=== PATIENT | male | born 1985 | race Caucasian/White ===

== ENCOUNTER 2017-12-19 12:08 | Emergency (ER) | payer MEDICARE, OTHER ==
[2017-12-19 12:28] VITALS: RESP 18
--- NOTE | 2017-12-19 14:59 | ED ---
General Adult HPI - General Chief complaint: ENT Stated complaint: ear pain Time Seen by Provider: 12/19/17 12:54 Source: patient, RN notes reviewed Mode of arrival: ambulatory Limitations: no limitations - History of Present Illness Initial comments: Patient is a 32-year-old male presented to the emergency room today with a chief complaint decreased hearing. He states that he woke up this morning noticed that he was having difficult time hearing out of seizures. He has not that he had some congestion last week but states he weighs it was just ALLERGIES. He denies any other complaints or symptoms at this time. Patient denies any recent fever, chills, shortness of breath, chest pain, back pain, abdominal pain, nausea or vomiting, numbness or tingling, headaches or visual changes, or any other complaints. - Related Data Home Medications Medication Instructions Recorded Confirmed No Known Home Medications 12/19/17 12/19/17 Allergies Allergy/AdvReac Type Severity Reaction Status Date / Time wool Allergy Rash/Hives Verified 12/19/17 14:10 methylphenidate HCl AdvReac Nausea & Verified 12/19/17 14:10 [From Ritalin] Vomiting olanzapine [From Zyprexa] AdvReac Nausea & Verified 12/19/17 14:10 Vomiting Review of Systems ROS Statement: Those systems with pertinent positive or pertinent negative responses have been documented in the HPI. ROS Other: All systems not noted in ROS Statement are negative. Past Medical History Past Medical History: COPD, Hypertension, Osteoarthritis (OA), Seizure Disorder , Sleep Apnea/CPAP/BIPAP Additional Past Medical History / Comment(s): 03/16/15 Pt presented to [facility] ER from doctor's office where he had presented with episodic chest pain -central and to L side. Pain is sometimes sharp, heavy or a pressure. Pt sent to ER for further evaluation. He is being admitted with clinical impression of chest pain. Other HX: Last seizure 03/12/15, DJD, arthritis in right pelvic bone and R knee, TRACI (unable to tolerate CPAP), insomnia. History of Any Multi-Drug Resistant Organisms: None Reported Past Surgical History: Appendectomy Additional Past Surgical History / Comment(s): 09/2014 Lap appy Past Anesthesia/Blood Transfusion Reactions: No Reported Reaction Past Psychological History: Anxiety, Bipolar, Depression, Panic Disorder, Schizoaffective Disorder, Schizophrenia Smoking Status: Current every day smoker Past Alcohol Use History: None Reported, Occasional Past Drug Use History: Marijuana - Past Family History Father Family Medical History: Hypertension, Myocardial Infarction ([place]) Additional Family Medical History / Comment(s): Pt reports his father of an [place] at the age of 48. Mother History Unknown: Yes Family Medical History: Cancer Additional Family Medical History / Comment(s): Recently diagnosed with breast cancer. General Exam - General Exam Comments Initial Comments: General: The patient is awake and alert, in no distress, and does not appear acutely ill. Eye: Extra-ocular movements are intact. No nystagmus. There is normal conjunctiva bilaterally. No signs of icterus. Ears, nose, mouth and throat: There are moist mucous membranes and no oral lesions. Cerumen impaction bilaterally. Neck: The neck is supple, there is no tenderness or JVD. Musculoskeletal: Normal ROM, no tenderness. Sensation intact. Strength 5/5. Pulses equal bilaterally 2+. Neurological: A&O x 3. CN II-XII intact, There are no obvious motor or sensory deficits. Coordination appears grossly intact. Speech is normal. Skin: Skin is warm and dry and no rashes or lesions are noted. Psychiatric: Cooperative, appropriate mood & affect, normal judgment. Limitations: no limitations Course Vital Signs 12/19/17 12:25 Temperature 98.0 F Pulse Rate 63 Respiratory 18 Rate Blood Pressure 100/75 O2 Sat by Pulse 98 Oximetry Medical Decision Making - Medical Decision Making The patient's ears were irrigated by nursing staff here bilaterally. Patient does not that he's had improvement and can hear both sides clearly now. His ears are clear. Little redness irritation. Patient states feels comfortable being discharged home. Disposition Clinical Impression: Impacted cerumen, bilateral Disposition: HOME SELF-CARE Condition: Good Instructions: Cerumen Impaction (ED) Is patient prescribed a controlled substance at d/c from ED?: No Referrals: Les Alexander MD [Primary Care Provider] - 1-2 days Time of Disposition: 16:22
[2017-12-19 16:32] VITALS: BP 128/87; PULSE 87; TEMP 98.5
== END 2017-12-19 16:31 | disposition home or self-care (01) ==
LOC: EC 12:08
DX: H61.23 Impacted cerumen, bilateral (principal); F17.200 Nicotine dependence, unspecified, uncomplicated; Z88.8 Allergy status to other drugs, medicaments and biological substances; Z91.048 Other nonmedicinal substance allergy status
CPT/HCPCS: 99282

== ENCOUNTER 2018-05-24 20:25 | Emergency (ER) | payer OTHER ==
[2018-05-24] MEDS ORDERED: guaiFENesin-DM 600/30MG 1 EACH TAB.ER.12H PO STA (21:14)
--- NOTE | 2018-05-24 21:42 | XR ---
EXAMINATION TYPE: XR chest 2V DATE OF EXAM: 05/24/2018 COMPARISON: 02/03/2016 HISTORY: Chest pain TECHNIQUE: Frontal and lateral views of the chest are obtained. FINDINGS: Heart and mediastinum are normal. Lungs are clear. Diaphragm is normal. Bony thorax appear s normal. IMPRESSION: Normal chest. No change.
--- NOTE | 2018-05-24 22:04 | ED ---
URI HPI - General Chief Complaint: Upper Respiratory Infection Stated Complaint: Flu/fever Time Seen by Provider: 05/24/18 20:40 Source: patient Mode of arrival: ambulatory Limitations: no limitations - History of Present Illness Initial Comments: 33-year-old female patient presents to emergency department today for evaluation of fever, cough, and nasal congestion. Patient states that he needs clearance to return to work. Patient states he did start feeling better today. Patient states symptoms started 3 days ago. Patient states that he has been coughing. Denies any sputum production. Denies shortness of breath or chest pain with this to take aspirin approximately 3 hours ago for fever. States he has not checked his temperature but has been chilled for the last 3 days. Patient denies any recent rash, abdominal pain, nausea, vomiting, diarrhea, constipation, back pain, numbness, tingling, dizziness, weakness, hematuria, dysuria, urinary urgency, urinary frequency, headache, visual changes, or any other complaints. - Related Data Previous Rx's Medication Instructions Recorded guaiFENesin-DM 600/30MG [Mucinex 1 each PO Q12HR #10 tab.er.12h 05/24/18 Dm] Allergies Allergy/AdvReac Type Severity Reaction Status Date / Time wool Allergy Rash/Hives Verified 05/24/18 20:38 methylphenidate HCl AdvReac Nausea & Verified 05/24/18 20:38 [From Ritalin] Vomiting olanzapine [From Zyprexa] AdvReac Nausea & Verified 05/24/18 20:38 Vomiting Review of Systems ROS Statement: Those systems with pertinent positive or pertinent negative responses have been documented in the HPI. ROS Other: All systems not noted in ROS Statement are negative. Past Medical History Past Medical History: COPD, Hypertension, Osteoarthritis (OA), Seizure Disorder, Sleep Apnea/CPAP/BIPAP Additional Past Medical History / Comment(s): 03/16/[address] [facility] ER from doctor's office where he had presented with episodic chest pain -central and to L side. Pain is sometimes sharp, heavy or a pressure. Pt sent to ER for further evaluation. He is being admitted with clinical impression of chest pain. Other HX: Last seizure 03/12/15, DJD, arthritis in right pelvic bone and R knee, TRACI (unable to tolerate CPAP), insomnia. History of Any Multi-Drug Resistant Organisms: None Reported Past Surgical History: Appendectomy Additional Past Surgical History / Comment(s): 09/2014 Lap appy Past Anesthesia/Blood Transfusion Reactions: No Reported Reaction Past Psychological History: Anxiety, Bipolar, Depression, Panic Disorder, Schizoaffective Disorder, Schizophrenia Smoking Status: Current every day smoker Past Alcohol Use History: None Reported, Occasional Past Drug Use History: Marijuana - Past Family History Father Family Medical History: Hypertension, Myocardial Infarction ([place]) Additional Family Medical History / Comment(s): Pt reports his father of an [place] at the age of 48. Mother History Unknown: Yes Family Medical History: Cancer Additional Family Medical History / Comment(s): Recently diagnosed with breast cancer. General Exam Limitations: no limitations General appearance: alert, in no apparent distress, other (Physical well- developed, well-nourished adult male patient in no acute distress. Vital signs upon presentation are temperature 99.5F, pulse 86, respirations 16, blood pressure 127/87, pulse ox 95% on room air.) Eye exam: Present: normal appearance, PERRL, EOMI. Absent: scleral icterus, conjunctival injection, periorbital swelling ENT exam: Present: mucous membranes moist. Absent: normal exam, normal oropharynx (Pharyngeal erythema, no tonsillar hypertrophy or exudate noted.) Neck exam: Present: normal inspection. Absent: tenderness, meningismus, lymphadenopathy Respiratory exam: Present: rhonchi (Expiratory in the posterior lung dasilva). Absent: normal lung sounds bilaterally, respiratory distress, wheezes, rales, stridor Cardiovascular Exam: Present: regular rate, normal rhythm, normal heart sounds. Absent: systolic murmur, diastolic murmur, rubs, gallop, clicks GI/Abdominal exam: Present: soft, normal bowel sounds. Absent: distended, tenderness, guarding, rebound, rigid Neurological exam: Present: alert, oriented X3, CN II-XII intact Psychiatric exam: Present: normal affect, normal mood Skin exam: Present: warm, dry, intact, normal color. Absent: rash Course Vital Signs 05/24/18 20:34 Temperature 99.5 F Pulse Rate 86 Respiratory 16 Rate Blood Pressure 127/87 O2 Sat by Pulse 95 Oximetry Medical Decision Making - Medical Decision Making 33-year-old male patient presented to the emergency department today for evaluation of upper respiratory symptoms and fever. Physical examination did reveal expiratory rhonchi in the posterior lung dasilva. Patient does admit to smoking. Chest x-ray showed no acute cardio pulmonary process. Patient did test positive for influenza A. He is out of the treatment window for Tamiflu. We did discuss supportive care. Be given a prescription for Mucinex DM. He is instructed to alternate Tylenol Motrin for fever control. Return parameters were discussed in detail. He verbalizes understanding and agrees with this plan. - Lab Data Lab Results 05/24/18 Range/Units 21:20 Influenza Type A RNA Detected H (Not Detectd) Influenza Type B (PCR) Not Detected (Not Detectd) - Radiology Data Radiology results: report reviewed, image reviewed Two-view x-ray of the chest is obtained. Report was reviewed in its entirety. Impression by Dr. Baron shows normal chest with no change. Disposition Clinical Impression: Influenza A Disposition: HOME SELF-CARE Condition: Good Instructions (If sedation given, give patient instructions): Influenza (ED) Additional Instructions: Increase fluids. Take medications as directed. Follow up with her primary care physician for recheck in 1-2 days. Return to the emergency department immediately for any new, worsening, or concerning symptoms. Prescriptions: guaiFENesin-DM 600/30MG [Mucinex Dm] 1 each PO Q12HR #10 tab.er.12h Is patient prescribed a controlled substance at d/c from ED?: No Referrals: Les Alexander MD [Primary Care Provider] - 1-2 days Time of Disposition: 22:04
[2018-05-24 22:14] VITALS: BP 122/72; PULSE 84; RESP 18; TEMP 98.2
== END 2018-05-24 22:14 | disposition home or self-care (01) ==
LOC: EC 20:25
DX: J10.1 Influenza due to other identified influenza virus with other respiratory manifestations (principal); G47.33 Obstructive sleep apnea (adult) (pediatric); F17.200 Nicotine dependence, unspecified, uncomplicated; Z99.89 Dependence on other enabling machines and devices; Z88.8 Allergy status to other drugs, medicaments and biological substances; Z91.09 Other allergy status, other than to drugs and biological substances
CPT/HCPCS: 71046; 87502; 99283

== ENCOUNTER 2018-05-28 14:22 | Emergency (ER) | payer OTHER ==
[2018-05-28 14:36] VITALS: BP 110/72; PULSE 80; RESP 18; TEMP 99.1
--- NOTE | 2018-05-28 15:14 | ED ---
General Adult HPI - General Chief complaint: Recheck/Abnormal Lab/Rx Stated complaint: Poss flu,wants to be cleared for work Time Seen by Provider: 05/28/18 14:38 Source: patient, RN notes reviewed Mode of arrival: ambulatory Limitations: no limitations - History of Present Illness Initial comments: Patient is a pleasant 33-year-old male presenting to the emergency department requesting return to work note. Patient states he was in the hospital 4 days ago and diagnosed with the flu. Patient did have cough and rhinorrhea as well as nausea and vomiting. Patient states symptoms have resolved. Patient is no longer having fevers. Patient states he feels better and does request to go back to work. Patient cannot identify any recent why he should not be allowed to return back to work. - Related Data Previous Rx's Medication Instructions Recorded guaiFENesin-DM 600/30MG [Mucinex 1 each PO Q12HR #10 tab.er.12h 05/24/18 Dm] Allergies Allergy/AdvReac Type Severity Reaction Status Date / Time wool Allergy Rash/Hives Verified 05/28/18 14:36 methylphenidate HCl AdvReac Nausea & Verified 05/28/18 14:36 [From Ritalin] Vomiting olanzapine [From Zyprexa] AdvReac Nausea & Verified 05/28/18 14:36 Vomiting Review of Systems ROS Statement: Those systems with pertinent positive or pertinent negative responses have been documented in the HPI. ROS Other: All systems not noted in ROS Statement are negative. Constitutional: Reports: chills Eyes: Denies: eye pain ENT: Denies: ear pain Respiratory: Reports: cough (Resolved) Cardiovascular: Denies: chest pain Endocrine: Reports: fatigue (Resolved) Gastrointestinal: Denies: abdominal pain Genitourinary: Denies: dysuria Musculoskeletal: Denies: back pain Skin: Denies: rash Neurological: Denies: weakness Past Medical History Past Medical History: COPD, Hypertension, Osteoarthritis (OA), Seizure Disorder, Sleep Apnea/CPAP/BIPAP Additional Past Medical History / Comment(s): 03/16/15 Pt presented to [facility] ER from doctor's office where he had presented with episodic chest pain -central and to L side. Pain is sometimes sharp, heavy or a pressure. Pt sent to ER for further evaluation. He is being admitted with clinical impression of chest pain. Other HX: Last seizure 03/12/15, DJD, arthritis in right pelvic bone and R knee, TRACI (unable to tolerate CPAP), insomnia. History of Any Multi-Drug Resistant Organisms: None Reported Past Surgical History: Appendectomy Additional Past Surgical History / Comment(s): 09/2014 Ajay sotelo Past Anesthesia/Blood Transfusion Reactions: No Reported Reaction Past Psychological History: Anxiety, Bipolar, Depression, Panic Disorder, Schizoaffective Disorder, Schizophrenia Smoking Status: Current every day smoker Past Alcohol Use History: None Reported, Occasional Past Drug Use History: Marijuana - Past Family History Father Family Medical History: Hypertension, Myocardial Infarction ([place]) Additional Family Medical History / Comment(s): Pt reports his father of an [place] at the age of 48. Mother History Unknown: Yes Family Medical History: Cancer Additional Family Medical History / Comment(s): Recently diagnosed with breast cancer. General Exam Limitations: no limitations General appearance: alert, in no apparent distress Head exam: Present: atraumatic Eye exam: Present: normal appearance, PERRL ENT exam: Present: normal oropharynx Neck exam: Present: normal inspection Respiratory exam: Present: normal lung sounds bilaterally Cardiovascular Exam: Present: regular rate, normal rhythm GI/Abdominal exam: Present: soft. Absent: tenderness Extremities exam: Present: normal inspection Neurological exam: Present: alert Psychiatric exam: Present: normal affect, normal mood Skin exam: Present: normal color Course Vital Signs 05/28/18 05/28/18 14:32 14:51 Temperature 99.1 F Pulse Rate 80 Respiratory 18 18 Rate Blood Pressure 110/72 O2 Sat by Pulse 98 Oximetry Disposition Clinical Impression: Influenza Disposition: HOME SELF-CARE Condition: Stable Instructions (If sedation given, give patient instructions): Influenza (ED) Additional Instructions: Please follow-up with primary care physician in the next couple days for recheck. Return for fevers, vomiting, worsening or changing symptoms or other concerns. Is patient prescribed a controlled substance at d/c from ED?: No Referrals: Les Alexander MD [Primary Care Provider] - 1-2 days Time of Disposition: 15:15
== END 2018-05-28 15:26 | disposition home or self-care (01) ==
LOC: EC 14:22
DX: J11.1 Influenza due to unidentified influenza virus with other respiratory manifestations (principal); J44.9 Chronic obstructive pulmonary disease, unspecified; F17.200 Nicotine dependence, unspecified, uncomplicated; Z88.8 Allergy status to other drugs, medicaments and biological substances; Z91.048 Other nonmedicinal substance allergy status
CPT/HCPCS: 99282

== ENCOUNTER 2018-07-28 09:59 | Emergency (ER) | payer MEDICARE ==
[2018-07-28 10:16] VITALS: BP 116/80; PULSE 102; RESP 20; TEMP 98.6
[2018-07-28] MEDS ORDERED: LIDOCAINE VISCOUS 2% 15 ML CUP MUCOUS MEM ONE (10:41)
[2018-07-28] MEDS ORDERED: IBUPROFEN 600 MG TAB PO STA (10:41)
--- NOTE | 2018-07-28 10:47 | ED ---
URI HPI - General Chief Complaint: Upper Respiratory Infection Stated Complaint: sorethroat, fever Time Seen by Provider: 07/28/18 10:24 Source: patient, RN notes reviewed Mode of arrival: ambulatory Limitations: language barrier - History of Present Illness Initial Comments: 33-year-old male presents emergency department she went sore throat. Patient states sore throat started 2 days ago with a fever. Patient states it's painful to swallow states it makes it difficult but can swallow. Patient denies any chest pain shortness breath no cough or chest congestion. Patient denies any recent [id number] medication use. - Related Data Previous Rx's Medication Instructions Recorded Amoxicillin 500 mg PO Q8H #30 capsule 07/28/18 Allergies Allergy/AdvReac Type Severity Reaction Status Date / Time wool Allergy Rash/Hives Verified 07/28/18 10:20 methylphenidate HCl AdvReac Nausea & Verified 07/28/18 10:20 [From Ritalin] Vomiting olanzapine [From Zyprexa] AdvReac Nausea & Verified 07/28/18 10:20 Vomiting Review of Systems ROS Statement: Those systems with pertinent positive or pertinent negative responses have been documented in the HPI. ROS Other: All systems not noted in ROS Statement are negative. Past Medical History Past Medical History: COPD, Hypertension, Osteoarthritis (OA), Seizure Disorder, Sleep Apnea/CPAP/BIPAP Additional Past Medical History / Comment(s): 03/16/15 Pt presented to [facility] ER from doctor's office where he had presented with episodic chest pain -central and to L side. Pain is sometimes sharp, heavy or a pressure. Pt sent to ER for further evaluation. He is being admitted with clinical impression of chest pain. Other HX: Last seizure 03/12/15, DJD, arthritis in right pelvic bone and R knee, TRACI (unable to tolerate CPAP), insomnia. History of Any Multi-Drug Resistant Organisms: None Reported Past Surgical History: Appendectomy Additional Past Surgical History / Comment(s): 09/2014 Ajay appsid Past Anesthesia/Blood Transfusion Reactions: No Reported Reaction Past Psychological History: Anxiety, Bipolar, Depression, Panic Disorder, Schizoaffective Disorder, Schizophrenia Smoking Status: Current every day smoker Past Alcohol Use History: None Reported, Occasional Past Drug Use History: Marijuana - Past Family History Father Family Medical History: Hypertension, Myocardial Infarction ([place]) Additional Family Medical History / Comment(s): Pt reports his father of an [place] at the age of 48. Mother History Unknown: Yes Family Medical History: Cancer Additional Family Medical History / Comment(s): Recently diagnosed with breast cancer. General Exam Limitations: no limitations General appearance: alert, in no apparent distress Head exam: Present: atraumatic, normocephalic, normal inspection Eye exam: Present: normal appearance, PERRL, EOMI. Absent: scleral icterus, conjunctival injection, periorbital swelling ENT exam: Present: mucous membranes moist, TM's normal bilaterally, normal external ear exam. Absent: normal oropharynx (Posterior pharynx erythema, mild swelling of tonsils which is uniform not unilateral) Neck exam: Present: normal inspection, full ROM. Absent: tenderness, meningismus, lymphadenopathy Respiratory exam: Present: normal lung sounds bilaterally. Absent: respiratory distress, wheezes, rales, rhonchi, stridor Cardiovascular Exam: Present: regular rate, normal rhythm, normal heart sounds. Absent: systolic murmur, diastolic murmur, rubs, gallop, clicks Course Vital Signs 07/28/18 10:11 Temperature 98.6 F Pulse Rate 102 H Respiratory 20 Rate Blood Pressure 116/80 O2 Sat by Pulse 96 Oximetry Medical Decision Making - Medical Decision Making 33-year-old male presented for sore throat. Patient has Pharyngitis clinically. Patient has no evidence of tonsillar abscess. Patient will be started on antibiotics. Patient continue Tylenol Motrin return for any worsening symptoms. Disposition Clinical Impression: Strep pharyngitis Disposition: HOME SELF-CARE Condition: Stable Instructions (If sedation given, give patient instructions): Strep Throat (ED) Additional Instructions: Please return to the Emergency Department if symptoms worsen or any other concerns. Prescriptions: Amoxicillin 500 mg PO Q8H #30 capsule Is patient prescribed a controlled substance at d/c from ED?: No Referrals: Les Alexander MD [Primary Care Provider] - 1-2 days Time of Disposition: 10:46
== END 2018-07-28 11:13 | disposition home or self-care (01) ==
LOC: EC 09:59
DX: J02.0 Streptococcal pharyngitis (principal); F17.200 Nicotine dependence, unspecified, uncomplicated; Z88.8 Allergy status to other drugs, medicaments and biological substances; Z91.048 Other nonmedicinal substance allergy status
CPT/HCPCS: 99283

== ENCOUNTER 2018-07-30 15:11 | Emergency (ER) | payer SELFPAY ==
[2018-07-30 15:26] VITALS: TEMP 98.3
--- NOTE | 2018-07-30 15:30 | ED ---
ENT HPI - General Chief complaint: ENT Stated complaint: Sore throat Time Seen by Provider: 07/30/18 15:28 Source: patient, RN notes reviewed Mode of arrival: ambulatory Limitations: no limitations - History of Present Illness Initial comments: 33-year-old male presents emergency department for a work no Patient seen here 2 days ago for strep pharyngitis was started on amoxicillin. Patient states that he is improved at this time. Patient states his fever has resolved. Patient still taking antibiotics as directed no difficulty swallowing no neck pain neck stiffness, cough or chest congestion. - Related Data Previous Rx's Medication Instructions Recorded Amoxicillin 500 mg PO Q8H #30 capsule 07/28/18 Allergies Allergy/AdvReac Type Severity Reaction Status Date / Time wool Allergy Rash/Hives Verified 07/30/18 15:26 methylphenidate HCl AdvReac Nausea & Verified 07/30/18 15:26 [From Ritalin] Vomiting olanzapine [From Zyprexa] AdvReac Nausea & Verified 07/30/18 15:26 Vomiting Review of Systems ROS Statement: Those systems with pertinent positive or pertinent negative responses have been documented in the HPI. ROS Other: All systems not noted in ROS Statement are negative. Past Medical History Past Medical History: COPD, Hypertension, Osteoarthritis (OA), Seizure Disorder, Sleep Apnea/CPAP/BIPAP Additional Past Medical History / Comment(s): 03/16/15 Pt presented to [facility] ER from doctor's office where he had presented with episodic chest pain -central and to L side. Pain is sometimes sharp, heavy or a pressure. Pt sent to ER for further evaluation. He is being admitted with clinical impression of chest pain. Other HX: Last seizure 03/12/15, DJD, arthritis in right pelvic bone and R knee, TRACI (unable to tolerate CPAP), insomnia. History of Any Multi-Drug Resistant Organisms: None Reported Past Surgical History: Appendectomy Additional Past Surgical History / Comment(s): 09/2014 Lap appy Past Anesthesia/Blood Transfusion Reactions: No Reported Reaction Past Psychological History: Anxiety, Bipolar, Depression, Panic Disorder, Schizoaffective Disorder, Schizophrenia Smoking Status: Current every day smoker Past Alcohol Use History: None Reported, Occasional Past Drug Use History: Marijuana - Past Family History Father Family Medical History: Hypertension, Myocardial Infarction ([place]) Additional Family Medical History / Comment(s): Pt reports his father of an [place] at the age of 48. Mother History Unknown: Yes Family Medical History: Cancer Additional Family Medical History / Comment(s): Recently diagnosed with breast cancer. General Exam Limitations: no limitations General appearance: alert, in no apparent distress Head exam: Present: atraumatic, normocephalic, normal inspection Eye exam: Present: normal appearance, PERRL, EOMI. Absent: scleral icterus, conjunctival injection, periorbital swelling ENT exam: Present: mucous membranes moist, TM's normal bilaterally. Absent: normal oropharynx (Minimal erythema) Neck exam: Present: normal inspection. Absent: tenderness, meningismus, lymphadenopathy Respiratory exam: Present: normal lung sounds bilaterally. Absent: respiratory distress, wheezes, rales, rhonchi, stridor Cardiovascular Exam: Present: regular rate, normal rhythm, normal heart sounds. Absent: systolic murmur, diastolic murmur, rubs, gallop, clicks GI/Abdominal exam: Present: soft, normal bowel sounds. Absent: distended, tenderness, guarding, rebound, rigid Course Vital Signs 07/30/18 15:23 Temperature 98.3 F Pulse Rate 56 L Respiratory 16 Rate Blood Pressure 127/83 O2 Sat by Pulse 100 Oximetry Medical Decision Making - Medical Decision Making Patient was diagnosed with strep pharyngitis 2 days ago ER visit. Patient is improved at this time. Patient was provided work note Disposition Clinical Impression: Hx of streptococcal pharyngitis Disposition: HOME SELF-CARE Condition: Stable Additional Instructions: Please return to the Emergency Department if symptoms worsen or any other concerns. Is patient prescribed a controlled substance at d/c from ED?: No Referrals: Les Alexander MD [Primary Care Provider] - 1-2 days Time of Disposition: 15:30
[2018-07-30 16:18] VITALS: BP 121/70; PULSE 98; RESP 18
== END 2018-07-30 16:17 | disposition home or self-care (01) ==
LOC: EC 15:11
DX: J02.0 Streptococcal pharyngitis (principal); F17.200 Nicotine dependence, unspecified, uncomplicated; Z88.8 Allergy status to other drugs, medicaments and biological substances; Z91.048 Other nonmedicinal substance allergy status
CPT/HCPCS: 99282

== ENCOUNTER 2019-04-20 17:20 | Inpatient (IN) | payer MEDICARE, OTHER ==
[2019-04-20] MEDS ORDERED: ACETAMINOPHEN TAB 325 MG TAB PO STA (18:08)
--- NOTE | 2019-04-20 18:44 | XR ---
EXAMINATION TYPE: XR chest 2V DATE OF EXAM: 04/20/2019 COMPARISON: 05/24/2018 HISTORY: Chest pain TECHNIQUE: Frontal and lateral views of the chest are obtained. FINDINGS: Infrahilar patchy densities noted which may reflect developing infiltrates. Correlate clinically and progress studies may be of value. No evidence for pneumothorax. No pleural effusion. The cardiac silhouette size is within normal limits. The osseous structures are grossly intact. IMPRESSION: 1. Infrahilar patchy densities noted which may reflect developing infiltrates. Correlate clinically and progress studies may be of value.
[2019-04-20] MEDS ORDERED: SODIUM CHLORIDE 0.9% 500 ML 500 ML IV ONE (19:11)
[2019-04-20] MEDS ORDERED: SODIUM CHLORIDE 0.9% 1,000 ML IV ONE (19:11)
[2019-04-20] MEDS ORDERED: VANCOMYCIN IV PER PHARMACY 1 EACH MISC MISCELLANE PRN (19:12)
[2019-04-20] MEDS ORDERED: NALOXONE 0.4 MG/ML 1 ML VIAL IV PRN (19:13)
[2019-04-20] MEDS ORDERED: IBUPROFEN 600 MG TAB PO PRN (19:13)
[2019-04-20] MEDS ORDERED: ACETAMINOPHEN TAB 325 MG TAB PO PRN (19:13)
--- NOTE | 2019-04-20 19:13 | ED ---
URI HPI - General Chief Complaint: Upper Respiratory Infection Stated Complaint: SOB, difficulty swallowing Time Seen by Provider: 04/20/19 18:07 Source: patient Mode of arrival: ambulatory Limitations: no limitations - History of Present Illness Initial Comments: 33-year-old male presenting today for chief complaint of cough fever chills body aches. Patient states the past 2 days he has had cough fever chills sore throat and body aches. Patient states he has been exposed to influenza B. Patient denies any nausea vomiting diarrhea denies any rash. States childhood vaccinations up-to-date. Patient denies any chest pain or shortness of breath. Patient denies any other complaints upon arrival appears nontoxic. Noted to be febrile. - Related Data Home Medications Medication Instructions Recorded Confirmed No Known Home Medications 04/20/19 04/20/19 Allergies Allergy/AdvReac Type Severity Reaction Status Date / Time wool Allergy Rash/Hives Verified 04/20/19 20:03 methylphenidate HCl AdvReac Nausea & Verified 04/20/19 20:03 [From Ritalin] Vomiting olanzapine [From Zyprexa] AdvReac Nausea & Verified 04/20/19 20:03 Vomiting Review of Systems ROS Statement: Those systems with pertinent positive or pertinent negative responses have been documented in the HPI. ROS Other: All systems not noted in ROS Statement are negative. Past Medical History Past Medical History: COPD, Hypertension, Osteoarthritis (OA), Seizure Disorder, Sleep Apnea/CPAP/BIPAP Additional Past Medical History / Comment(s): 03/16/15 Pt presented to [facility] ER from doctor's office where he had presented with episodic chest pain -central and to L side. Pain is sometimes sharp, heavy or a pressure. Pt sent to ER for further evaluation. He is being admitted with clinical impression of chest pain. Other HX: Last seizure 03/12/15, DJD, arthritis in right pelvic bone and R knee, TRACI (unable to tolerate CPAP), insomnia. History of Any Multi-Drug Resistant Organisms: None Reported Past Surgical History: Appendectomy Additional Past Surgical History / Comment(s): 09/2014 Ajay appsid Past Anesthesia/Blood Transfusion Reactions: No Reported Reaction Past Psychological History: Anxiety, Bipolar, Depression, Panic Disorder, Schizoaffective Disorder, Schizophrenia Smoking Status: Current every day smoker Past Alcohol Use History: Occasional Past Drug Use History: None Reported, Marijuana - Past Family History Father Family Medical History: Hypertension, Myocardial Infarction (MT) Additional Family Medical History / Comment(s): Pt reports his father of an MT at the age of 48. Mother History Unknown: Yes Family Medical History: Cancer Additional Family Medical History / Comment(s): Recently diagnosed with breast cancer. General Exam - General Exam Comments Initial Comments: General: The patient is awake and alert, in no distress Eye: +3 mm pupils are equal, round and reactive to light, extra-ocular movements are intact. No nystagmus. There is normal conjunctiva bilaterally. No signs of icterus. No photophobia Ears, nose, mouth and throat: There are moist mucous membranes and no oral lesions. Oropharynx was not erythematous there is no tonsillar enlargement exudates or lesions. Uvula midline. Tympanic membranes are not erythematous or is no effusions bulging or retraction. No tenderness to palpation of the mastoid. No anterior cervical lymphadenopathy. Rhinorrhea, clear and bilateral nares. No tripoding, no drooling. Neck: The neck is supple, there is no tenderness or JVD. No nuchal rigidity Cardiovascular: There is a regular rate and rhythm. No murmur, rub or gallop is appreciated. Respiratory: Respirations are non-labored, breath sounds are equal. No wheezes, stridor, rales. Rhonchi noted. No retractions or abdominal breathing. Gastrointestinal: Soft, non-distended, non-tender abdomen without masses or or ganomegaly noted. There is no rebound or guarding present. Bowel sounds are unremarkable. Musculoskeletal: Normal ROM, no tenderness. Strength 5/5. Sensation intact. Radial pulses equal bilaterally 2+. Neurological: A&O x 3. CN II-XII intact grossly, There are no obvious motor or sensory deficits. Coordination appears grossly intact. Speech appears normal, no muffling. Skin: Skin is warm and dry and no rashes or lesions are noted. No extremity edema Psychiatric: Cooperative Limitations: no limitations Course Vital Signs 04/20/19 04/20/19 04/20/19 17:37 18:39 18:55 Temperature 101.9 F H Pulse Rate 108 H 88 Respiratory 18 20 18 Rate Blood Pressure 130/77 125/66 O2 Sat by Pulse 100 95 Oximetry 02/10/20 02/10/20 02/10/20 19:38 19:47 22:39 Temperature 101.1 F H Pulse Rate 111 H 108 H 91 Respiratory 18 Rate Blood Pressure 123/56 O2 Sat by Pulse 95 Oximetry Medical Decision Making - Medical Decision Making 33-year-old male presenting today for chief complaint of cough and body aches sore throat found to be influenza B-positive. There is bilateral infrahilar infiltrates noted this is concerning given patient's informed testing with possibility of subsequent MRSA pneumonia. Patient was started on Rocephin as well as vancomycin. Lactic acid within normal limits. Patient did have leukocytosis. Patient was given antipyretics in the emergency department as well as IV fluids. Patient is placed on maintenance fluids. Patient states he is doing slightly better after albuterol treatment. Patient had rhonchi on PE. At this time will admit patient for interval CXR and respiratory evaluation. Dr. Ramírez is agreeable recommends this plan he spoke with the admitting provider. Discussed findings and concerns the patient was agreeable to admission - Lab Data Result diagrams: 04/20/19 19:23 04/20/19 19:23 Lab Results 04/20/19 04/20/19 04/20/19 Range/Units 17:40 19:23 19:23 WBC 15.5 H (3.8-10.6) k/uL RBC 5.38 (4.30-5.90) m/uL Hgb 16.1 (13.0-17.5) gm/dL Hct 48.3 (39.0-53.0) % MCV 89.9 (80.0-100.0) fL MCH 30.0 (25.0-35.0) pg MCHC 33.3 (31.0-37.0) g/dL RDW 13.3 (11.5-15.5) % Plt Count 231 (150-450) k/uL Neutrophils % 85 % Lymphocytes % 6 % Monocytes % 5 % Eosinophils % 1 % Basophils % 2 % Neutrophils # 13.2 H (1.3-7.7) k/uL Lymphocytes # 1.0 (1.0-4.8) k/uL Monocytes # 0.8 (0-1.0) k/uL Eosinophils # 0.1 (0-0.7) k/uL Basophils # 0.3 H (0-0.2) k/uL Sodium 131 L (137-145) mmol/L Potassium 4.0 (3.5-5.1) mmol/L Chloride 104 (98-107) mmol/L Carbon Dioxide 20 L (22-30) mmol/L Anion Gap 7 mmol/L BUN 6 L (9-20) mg/dL Creatinine 0.74 (0.66-1.25) mg/dL Est GFR (CKD-EPI)AfAm >90 (>60 ml/min/1.73 sqM) Est GFR (CKD-EPI)NonAf >90 (>60 ml/min/1.73 sqM) Glucose 96 (74-99) mg/dL Plasma Lactic Acid Shahram (0.7-2.0) mmol/L Calcium 8.0 L (8.4-10.2) mg/dL Total Bilirubin 0.7 (0.2-1.3) mg/dL AST 29 (17-59) U/L ALT 11 (4-49) U/L Alkaline Phosphatase 64 (38-126) U/L Total Protein 5.7 L (6.3-8.2) g/dL Albumin 3.1 L (3.5-5.0) g/dL Influenza Type A RNA Not Detected (Not Detectd) Influenza Type B (PCR) Detected H (Not Detectd) 04/20/19 Range/Units 19:23 WBC (3.8-10.6) k/uL RBC (4.30-5.90) m/uL Hgb (13.0-17.5) gm/dL Hct (39.0-53.0) % MCV (80.0-100.0) fL MCH (25.0-35.0) pg MCHC (31.0-37.0) g/dL RDW (11.5-15.5) % Plt Count (150-450) k/uL Neutrophils % % Lymphocytes % % Monocytes % % Eosinophils % % Basophils % % Neutrophils # (1.3-7.7) k/uL Lymphocytes # (1.0-4.8) k/uL Monocytes # (0-1.0) k/uL Eosinophils # (0-0.7) k/uL Basophils # (0-0.2) k/uL Sodium (137-145) mmol/L Potassium (3.5-5.1) mmol/L Chloride (98-107) mmol/L Carbon Dioxide (22-30) mmol/L Anion Gap mmol/L BUN (9-20) mg/dL Creatinine (0.66-1.25) mg/dL Est GFR (CKD-EPI)AfAm (>60 ml/min/1.73 sqM) Est GFR (CKD-EPI)NonAf (>60 ml/min/1.73 sqM) Glucose (74-99) mg/dL Plasma Lactic Acid Shahram 1.1 (0.7-2.0) mmol/L Calcium (8.4-10.2) mg/dL Total Bilirubin (0.2-1.3) mg/dL AST (17-59) U/L ALT (4-49) U/L Alkaline Phosphatase (38-126) U/L Total Protein (6.3-8.2) g/dL Albumin (3.5-5.0) g/dL Influenza Type A RNA (Not Detectd) Influenza Type B (PCR) (Not Detectd) Disposition Clinical Impression: Pneumonia, Influenza B Disposition: ADMITTED IP TO THIS [facility] Condition: Stable Is patient prescribed a controlled substance at d/c from ED?: No Time of Disposition: 19:12 Decision to Admit Reason: Admit from EC Decision Date: 04/20/19 Decision Time: 19:12
[2019-04-20] MEDS ORDERED: OSELTAMIVIR 75 MG CAP PO STA (19:14)
[2019-04-20] MEDS ORDERED: ALBUTEROL NEBULIZED 2.5 MG/3 ML INHALATION STA (19:14)
[2019-04-20] MEDS ORDERED: methylPREDNISolone SOD SUCCI 125 MG/2 ML VIAL IV STA (19:14)
[2019-04-20] MEDS ORDERED: VANCOMYCIN 1,750 MG in SODIUM CHLORIDE 0.9% 500 ML 500 ML IVPB STA (19:17)
[2019-04-20 19:45] LABS: ALT 11 U/L (4-49); AST 29 U/L (17-59); African American GFR (CKD) >90 (>60 ml/min/1.73 sqM); Albumin 3.1 g/dL (3.5-5.0); Alkaline Phosphatase 64 U/L (38-126); Anion Gap 7 mmol/L; Blood Urea Nitrogen 6 mg/dL (9-20); Carbon Dioxide 20 mmol/L (22-30); Chloride 104 mmol/L (98-107); Glucose 96 mg/dL (74-99); Non-African American GFR(CKD) >90 (>60 ml/min/1.73 sqM); Sodium 131 mmol/L (137-145); Total Bilirubin 0.7 mg/dL (0.2-1.3); Total Protein 5.7 g/dL (6.3-8.2)
[2019-04-20 19:50] LABS: Basophils # (A) 0.3 k/uL (0-0.2); Basophils % (A) 2 %; Eosinophils # (A) 0.1 k/uL (0-0.7); Eosinophils % (A) 1 %; HCT 48.3 % (39.0-53.0); HGB 16.1 gm/dL (13.0-17.5); Lymphocytes % (A) 6 %; MCHC 33.3 g/dL (31.0-37.0); MCV 89.9 fL (80.0-100.0); Mean Platelet Volume 8.1; Monocytes # (A) 0.8 k/uL (0-1.0); Monocytes % (A) 5 %; Neutrophils # (A) 13.2 k/uL (1.3-7.7); Neutrophils % (A) 85 %; Platelet Count 231 k/uL (150-450); RBC 5.38 m/uL (4.30-5.90); RDW 13.3 % (11.5-15.5); WBC 15.5 k/uL (3.8-10.6)
[2019-04-20] MEDS: SODIUM CHLORIDE 0.9% 1,000 ML IV SCH (21:12)
[2019-04-21] MEDS: SODIUM CHLORIDE 0.9% 1,000 ML IV SCH ×3 (01:02→21:52)
[2019-04-21] MEDS: VANCOMYCIN 1,500 MG in SODIUM CHLORIDE 0.9% 250 ML IVPB SCH ×3 (06:18→22:00)
[2019-04-21] MEDS: OSELTAMIVIR 75 MG CAP PO SCH ×2 (08:25→20:30)
[2019-04-21] MEDS: IPRATROPIUM-ALBUTEROL 3 ML NEB INHALATION SCH ×2 (15:21→19:19)
--- NOTE | 2019-04-21 19:44 | HP ---
HISTORY AND PHYSICAL CHIEF COMPLAINT: Fever, cough and chills. HISTORY OF PRESENT ILLNESS: This is the first known admission for this 33-year-old male. He started to develop a URI, cough and congestion and suddenly became acutely dyspneic. He came to the emergency room, where he was identified as having bilateral bronchial pneumonia. He has had no history of any pulmonary disease, asthma, etc. He does smoke. REVIEW OF SYSTEMS: He has had no headaches, neurologic problems, hemoptysis, heart disease, hypertension, palpitations, abdominal pain, nausea, vomiting, hematemesis, melena, hematochezia, jaundice, hepatitis, cirrhosis, hematuria, frequency, urgency, renal failure, diabetes, etc. Past medical history, family history, and personal and social histories are unremarkable or noncontributory. He is not on any medication. The only surgery he has had is an appendectomy. He is ALLERGIC to ZYPREXA AND RITALIN. He smokes a pack of cigarettes a day. In the emergency room he was positive for flu on his swab. PHYSICAL EXAMINATION: Blood pressure is 141/86 with a pulse of 102, respirations of 34, and he is afebrile. In general he appeared to be well developed, well nourished, in no acute distress. Skin color is normal. Skin is warm and dry. Lymph nodes are not enlarged. Head, ears, eyes, nose, mouth and throat were normal. Neck veins were not distended. Thyroid is not enlarged. Cardiac exam is normal. The chest demonstrated decreased breath sounds on both bases with rales and rhonchi and a productive cough. Abdomen is soft, nontender. Extremities are normal. Neurologically he was intact. ADMITTING DIAGNOSES: 1. Bilateral bronchopneumonia. 2. Influenza. PLAN: 1. Bed rest. 2. IV fluids. 3. Antibiotics. 4. Updrafts. MMODL / IJN: [id number] /
--- NOTE | 2019-04-21 19:54 | PN ---
PROGRESS NOTE CHIEF COMPLAINT: Pneumonitis. HISTORY OF PRESENT ILLNESS: This gentleman is feeling a little bit better. He is a little bit less short of breath. PHYSICAL EXAMINATION: He still has bilateral decreased breath sounds at the bases with rales and rhonchi. He has a loose productive cough. Cardiac exam is normal. Abdomen is soft, nontender. IMPRESSION: Bronchial pneumonia. PLAN: Continue with IV fluids and medications and updrafts. MMODL / IJN: [id number] /
[2019-04-21] MEDS: FLUTICASONE 50MCG/SPRAY NASAL 16GM EA NOSTRIL SCH (20:30)
[2019-04-21] MEDS ORDERED: TETRAHYDROZOLINE 0.05% OPHTH DROPS 15 ML BTL BOTH EYES PRN (22:47)
[2019-04-22] MEDS ORDERED: VANCOMYCIN TROUGH DUE 1 EACH MISC MISCELLANE ONE (05:00)
[2019-04-22] MEDS: VANCOMYCIN 1,500 MG in SODIUM CHLORIDE 0.9% 250 ML IVPB SCH (05:33)
[2019-04-22] MEDS: SODIUM CHLORIDE 0.9% 1,000 ML IV SCH (05:34)
[2019-04-22 05:52] LABS: African American GFR (CKD) >90 (>60 ml/min/1.73 sqM); Anion Gap 4 mmol/L; Blood Urea Nitrogen 3 mg/dL (9-20); Calcium 7.5 mg/dL (8.4-10.2); Carbon Dioxide 24 mmol/L (22-30); Chloride 108 mmol/L (98-107); Glucose 90 mg/dL (74-99); Non-African American GFR(CKD) >90 (>60 ml/min/1.73 sqM); Potassium 3.8 mmol/L (3.5-5.1); Sodium 136 mmol/L (137-145)
[2019-04-22 08:22] VITALS: BP 121/73; RESP 16; TEMP 99.7
[2019-04-22] MEDS: FLUTICASONE 50MCG/SPRAY NASAL 16GM EA NOSTRIL SCH (08:25)
[2019-04-22] MEDS: OSELTAMIVIR 75 MG CAP PO SCH (08:25)
[2019-04-22] MEDS: IPRATROPIUM-ALBUTEROL 3 ML NEB INHALATION SCH ×2 (09:07→11:42)
[2019-04-22 11:59] VITALS: PULSE 78
[2019-04-22] MEDS ORDERED: LEVOFLOXACIN 500 MG TAB PO SCH (13:00)
--- NOTE | 2019-04-23 07:24 | DS ---
DISCHARGE SUMMARY CHIEF COMPLAINT: Pneumonitis. HISTORY OF PRESENT ILLNESS AND PHYSICAL EXAM: Details of this man's history and physical can be found in the initial workup. LABORATORY STUDIES: While he was in the hospital he had laboratory studies, details of which can be found in the laboratory section of his chart. COURSE IN HOSPITAL: After admission, he was placed on bedrest, started on intravenous fluids and he was started on IV antibiotics, updrafts and chest improved nicely. He was still somewhat congested, but was anxious to be discharged on the and it was felt that he could be sent home on Levaquin 500 mg once a day and Medrol Dosepak and to be seen in the office in a few days. FINAL DIAGNOSIS: Bilateral bronchopneumonia. OPERATIONS: None. CONSULTATIONS: None. He is improved. MMODL / DIANELYSN: [id number] /
[2019-04-23] MEDS ORDERED: methylPREDNISolone 4 MG TAB TAPER PO SCH (09:00)
== END 2019-04-22 13:24 | disposition home or self-care (01) | DRG 195 ==
LOC: EC 17:20 → 4SSUR 20:17 → OBSVTOIN 04-22 09:15
PROVIDERS: ADMIT Family Medicine; ATTEND Family Medicine
DX: J10.08 Influenza due to other identified influenza virus with other specified pneumonia (principal); F17.210 Nicotine dependence, cigarettes, uncomplicated; F25.9 Schizoaffective disorder, unspecified; F31.9 Bipolar disorder, unspecified; F41.0 Panic disorder [episodic paroxysmal anxiety]; G40.909 Epilepsy, unspecified, not intractable, without status epilepticus; I10 Essential (primary) hypertension; J18.0 Bronchopneumonia, unspecified organism; J44.0 Chronic obstructive pulmonary disease with (acute) lower respiratory infection; R13.10 Dysphagia, unspecified; Z20.828 Contact with and (suspected) exposure to other viral communicable diseases; Z80.3 Family history of malignant neoplasm of breast; Z82.49 Family history of ischemic heart disease and other diseases of the circulatory system; Z90.49 Acquired absence of other specified parts of digestive tract; Z88.8 Allergy status to other drugs, medicaments and biological substances
CPT/HCPCS: 36415; 71046; 80048; 80053; 80202; 83605; 85025; 87040; 87502; 94640; 96361; 96365; 96367; 96375; 99285

== ENCOUNTER 2019-05-20 18:08 | Emergency (ER) | payer MEDICARE ==
[2019-05-20 18:54] VITALS: BP 120/82; PULSE 91; RESP 17; TEMP 98.2
--- NOTE | 2019-05-20 19:48 | XR ---
Right ankle HISTORY: Pain for 2 months 3 views the right ankle There is soft tissue swelling present. Bone mineralization, joint spaces and alignment are maintained . There is no fracture or dislocation. There is a plantar calcaneus spur. IMPRESSION: Soft tissue swelling.
--- NOTE | 2019-05-20 20:25 | ED ---
Extremity Problem HPI - General Chief complaint: Extremity Problem,Nontraumatic Stated complaint: rt ankle pain Time Seen by Provider: 05/20/19 19:23 Source: patient Mode of arrival: ambulatory Limitations: no limitations - History of Present Illness Initial comments: Patient is a 34-year-old male presenting to emergency Department with complaints of right ankle pain that has been intermittent for the past 2 months. He cannot recall any injuries or trauma to that ankle. He has no previous ankle surgeries. He denies any fever, chills. He denies history of gout. He has no other complaints at this time. Upon arrival to the ER, his vital signs are stable. - Related Data Previous Rx's Medication Instructions Recorded Levofloxacin [Levaquin] 500 mg PO Q24H #10 tab 04/22/19 Oseltamivir [Tamiflu] 75 mg PO Q12HR #10 cap 04/22/19 methylPREDNISolone Dose Pack 24 mg PO DAILY #1 tab 04/22/19 [Medrol Dose Pack] Allergies Allergy/AdvReac Type Severity Reaction Status Date / Time wool Allergy Rash/Hives Verified 04/20/19 20:03 methylphenidate HCl AdvReac Nausea & Verified 04/20/19 20:03 [From Ritalin] Vomiting olanzapine [From Zyprexa] AdvReac Nausea & Verified 04/20/19 20:03 Vomiting Review of Systems ROS Statement: Those systems with pertinent positive or pertinent negative responses have been documented in the HPI. ROS Other: All systems not noted in ROS Statement are negative. Past Medical History Past Medical History: COPD, Hypertension, Osteoarthritis (OA), Seizure Disorder, Sleep Apnea/CPAP/BIPAP Additional Past Medical History / Comment(s): 03/16/15 Pt presented to [facility] ER from doctor's office where he had presented with episodic chest pain -central and to L side. Pain is sometimes sharp, heavy or a pressure. Pt sent to ER for further evaluation. He is being admitted with clinical impression of chest pain. Other HX: Last seizure 03/12/15, DJD, arthritis in right pelvic bone and R knee, TRACI (unable to tolerate CPAP), insomnia. History of Any Multi-Drug Resistant Organisms: None Reported Past Surgical History: Appendectomy Additional Past Surgical History / Comment(s): 09/2014 Lap appy Past Anesthesia/Blood Transfusion Reactions: No Reported Reaction Past Psychological History: Anxiety, Bipolar, Depression, Panic Disorder, Schizoaffective Disorder, Schizophrenia Smoking Status: Current every day smoker Past Alcohol Use History: Occasional Past Drug Use History: None Reported, Marijuana - Past Family History Father Family Medical History: Hypertension, Myocardial Infarction (CO) Additional Family Medical History / Comment(s): Pt reports his father of an CO at the age of 48. Mother History Unknown: Yes Family Medical History: Cancer Additional Family Medical History / Comment(s): Recently diagnosed with breast cancer. General Exam - General Exam Comments Initial Comments: GENERAL: Well-appearing, well-nourished and in no acute distress. HEAD: Atraumatic, normocephalic. EYES: Pupils equal round and reactive to light, extraocular movements intact, sclera anicteric, conjunctiva are normal. ENT: Moist mucous membranes. NECK: Normal range of motion, supple without lymphadenopathy or JVD. LUNGS: Breath sounds clear to auscultation bilaterally and equal. No wheezes rales or rhonchi. HEART: Regular rate and rhythm without murmurs, rubs or gallops. ABDOMEN: Soft, nontender, normoactive bowel sounds. No guarding, no rebound. No masses appreciated. : Deferred EXTREMITIES: Mild tenderness with palpation underneath the lateral malleolus of the right ankle. Patient has full ankle range of motion. There is no erythema or swelling. No obvious deformity. He is neurovascular intact. No pain in the right foot or right tib-fib area. No clubbing or cyanosis. NEUROLOGICAL: Normal speech, normal gait. PSYCH: Normal mood, normal affect. SKIN: Warm, Dry, normal turgor, no rashes or lesions noted. Limitations: no limitations Course Vital Signs 05/20/19 18:52 Temperature 98.2 F Pulse Rate 91 Respiratory 17 Rate Blood Pressure 120/82 O2 Sat by Pulse 98 Oximetry Medical Decision Making - Medical Decision Making Patient is a 34-year-old male presenting for ankle pain and Timentin for 2 months. No obvious deformities or signs of infection on exam. Vitals are stable. There've been no fevers. X-rays reveal no acute fractures dislocations. I discussed with patient is most likely an ankle sprain. He will continue with ice or heat as well as a brace for support. He states he will follow up with his PCP if symptoms persist. He is stable for discharge. Disposition Clinical Impression: Right ankle sprain Disposition: HOME SELF-CARE Condition: Stable Instructions (If sedation given, give patient instructions): Ankle Sprain (ED) Additional Instructions: Please return to the Emergency Department if symptoms worsen or any other concerns. Continue to use ice or heat to the ankle as well as Tylenol or Advil. Follow-up with PCP if symptoms persist. Is patient prescribed a controlled substance at d/c from ED?: No Referrals: Michael Ruffin MD [Primary Care Provider] - 1-2 days
== END 2019-05-20 20:35 | disposition home or self-care (01) ==
LOC: EC 18:08
DX: S93.401A Sprain of unspecified ligament of right ankle, initial encounter (principal); I10 Essential (primary) hypertension; M19.90 Unspecified osteoarthritis, unspecified site; G47.33 Obstructive sleep apnea (adult) (pediatric); F17.200 Nicotine dependence, unspecified, uncomplicated; Z88.8 Allergy status to other drugs, medicaments and biological substances; Z91.048 Other nonmedicinal substance allergy status; Z99.89 Dependence on other enabling machines and devices; X58.XXXA Exposure to other specified factors, initial encounter
CPT/HCPCS: 99283

== ENCOUNTER 2019-07-06 10:51 | Emergency (ER) | payer MEDICARE ==
--- NOTE | 2019-07-06 11:49 | XR ---
EXAMINATION TYPE: XR ankle complete RT DATE OF EXAM: 07/06/2019 CLINICAL HISTORY: Right ankle pain for weeks with no known injury TECHNIQUE: Frontal, lateral and oblique images of the right ankle are obtained. COMPARISON: 05/20/2019 FINDINGS: There is no acute fracture/dislocation evident in the right ankle. The ankle mortise appe ars within normal limits. Small plantar heel spur is seen. The overlying soft tissue appears unremark able. IMPRESSION: There is no acute fracture or dislocation in the right ankle.
--- NOTE | 2019-07-06 11:51 | XR ---
EXAMINATION TYPE: XR chest 2V DATE OF EXAM: 07/06/2019 COMPARISON: 04/20/2019 HISTORY: Chest pain TECHNIQUE: Frontal and lateral views of the chest are obtained. FINDINGS: There is improved aeration of the lingula in comparison the prior with patchy focus of rig ht basilar airspace disease. Remainder the lungs are well aerated. Bilateral ulises are prominent. Card iomediastinal silhouette is within normal limits. No acute osseous pathology seen. IMPRESSION: 1. Patchy right basilar airspace disease may represent atelectasis given its presence on the prior 12/2019 or recurrent pneumonia. 2. Hilar prominence bilaterally could be on the basis of tortuous vasculature, pulmonary artery hyper tension, or adenopathy.
[2019-07-06 12:26] LABS: Basophils # (A) 0.1 k/uL (0-0.2); Basophils % (A) 1 %; Eosinophils # (A) 0.5 k/uL (0-0.7); Eosinophils % (A) 3 %; HCT 45.2 % (39.0-53.0); HGB 15.1 gm/dL (13.0-17.5); Lymphocytes # (A) 1.9 k/uL (1.0-4.8); Lymphocytes % (A) 12 %; MCH 30.3 pg (25.0-35.0); MCHC 33.4 g/dL (31.0-37.0); MCV 90.7 fL (80.0-100.0); Mean Platelet Volume 7.3; Monocytes # (A) 0.7 k/uL (0-1.0); Monocytes % (A) 4 %; Neutrophils % (A) 80 %; Platelet Count 291 k/uL (150-450); RBC 4.98 m/uL (4.30-5.90); RDW 13.8 % (11.5-15.5); WBC 16.3 k/uL (3.8-10.6)
[2019-07-06 12:29] LABS: ALT 11 U/L (4-49); AST 18 U/L (17-59); African American GFR (CKD) >90 (>60 ml/min/1.73 sqM); Albumin 3.4 g/dL (3.5-5.0); Alkaline Phosphatase 55 U/L (38-126); Anion Gap 7 mmol/L; Blood Urea Nitrogen 17 mg/dL (9-20); Calcium 8.9 mg/dL (8.4-10.2); Carbon Dioxide 22 mmol/L (22-30); Chloride 108 mmol/L (98-107); Glucose 91 mg/dL (74-99); Non-African American GFR(CKD) >90 (>60 ml/min/1.73 sqM); Potassium 4.4 mmol/L (3.5-5.1); Sodium 137 mmol/L (137-145); Total Bilirubin 0.2 mg/dL (0.2-1.3)
[2019-07-06] MEDS ORDERED: AZITHROMYCIN 500 MG TAB PO STA (13:28)
--- NOTE | 2019-07-06 13:52 | ED ---
General Adult HPI - General Chief complaint: Chest Pain Stated complaint: chest pain/Rt ankle pain Time Seen by Provider: 07/06/19 11:06 Source: patient, RN notes reviewed, old records reviewed Mode of arrival: ambulatory Limitations: no limitations - History of Present Illness Initial comments: 34-year-old male patient passed history of retention COPD presents ED for evaluation of pain in his shoulders bilaterally. Patient reports that 3 days ago he was working at his job which requires physical exertion and with upper arm movement he is having some pain in the right upper shoulder. She reports that the next day this also occurred in the left side. Patient reports that he has not had any pain today. He wants to be evaluated for this discomfort he is experiencing prior days. Patient also complains of right ankle pain has been bothering him for the last 2 months. Reports that it hurts with walking. Denies any cough congestion fever shortness of breath. Systemic: Pt denies fatigue, fever/chills, rash. Pt denies weakness, night sweats, weight loss. Neuro: Pt denies headache, visual disturbances, syncope or pre-syncope. HEENT: Pt denies ocular discharge or irritation, otalgia, rhinorrhea, pharyngitis or notable lymphadenopathy. Cardiopulmonary: Pt denies SOB, heart palpitations, dyspnea on exertion. Abdominal/GI: Pt denies abdominal pain, n/v/d. : Pt denies dysuria, burning w/ urination, frequency/urgency. Denies new onset urinary or bowel incontinence. MSK: Pt denies loss of strength or function in extremities. Neuro: Pt denies new onset weakness, paresthesias. - Related Data Previous Rx's Medication Instructions Recorded Levofloxacin [Levaquin] 500 mg PO Q24H #10 tab 04/22/19 Oseltamivir [Tamiflu] 75 mg PO Q12HR #10 cap 04/22/19 methylPREDNISolone Dose Pack 24 mg PO DAILY #1 tab 04/22/19 [Medrol Dose Pack] Azithromycin [Zithromax Z-pack] 0 mg PO DIRECTED #6 tab 07/06/19 Allergies Allergy/AdvReac Type Severity Reaction Status Date / Time wool Allergy Rash/Hives Verified 07/06/19 11:03 methylphenidate HCl AdvReac Nausea & Verified 07/06/19 11:03 [From Ritalin] Vomiting olanzapine [From Zyprexa] AdvReac Nausea & Verified 07/06/19 11:03 Vomiting Review of Systems ROS Statement: Those systems with pertinent positive or pertinent negative responses have been documented in the HPI. ROS Other: All systems not noted in ROS Statement are negative. Past Medical History Past Medical History: COPD, Hypertension, Osteoarthritis (OA), Seizure Disorder, Sleep Apnea/CPAP/BIPAP Additional Past Medical History / Comment(s): Other HX: Last seizure 03/12/15, DJD, arthritis in right pelvic bone and R knee, TRACI (unable to tolerate CPAP), insomnia. History of Any Multi-Drug Resistant Organisms: None Reported Past Surgical History: Appendectomy Additional Past Surgical History / Comment(s): 09/2014 Lap appy Past Anesthesia/Blood Transfusion Reactions: No Reported Reaction Past Psychological History: Anxiety, Bipolar, Depression, Panic Disorder, Schizoaffective Disorder, Schizophrenia Smoking Status: Current every day smoker Past Alcohol Use History: Occasional Past Drug Use History: Marijuana - Past Family History Father Family Medical History: Hypertension, Myocardial Infarction ([place]) Additional Family Medical History / Comment(s): Pt reports his father of an [place] at the age of 48. Mother History Unknown: Yes Family Medical History: Cancer Additional Family Medical History / Comment(s): Recently diagnosed with breast cancer. General Exam - General Exam Comments Initial Comments: Constitutional: NAD, AOX3, Pt has pleasant affect. HEENT: NC/AT, trachea midline, neck supple, no lymphadenopathy. Posterior pharynx non erythematous, without exudates. External ears appear normal, without discharge. Mucous membranes moist. Eyes PERRLA, EOM intact. There is no scleral icterus. No pallor noted. Cardiopulmonary: RRR, no murmurs, rubs or gallops, no JVD noted. Lungs CTAB in anterior and posterior dasilva. No peripheral edema. Abdominal exam: Abdomen soft and non-distended. Abdomen non-tender to palpation in all 4 quadrants. Bowel sounds active in LLQ. No hepatosplenomegaly. No ecchymosis Neuro: CN II-XII grossly intact. No nuchal rigidity. No raccon eyes, no lagos sign, no hemotympanum. No cervical spinal tenderness. MSK: Right lateral malleoli mildly tender to palpation. Full range of motion. No skin changes. No posterior calf tenderness bilaterally, homans sign negative bilaterally. Posterior tibialis and radial pulse +2 bilaterally. Sensation intact in upper and lower extremities. Full active ROM in upper and lower extremities, 5/5 stregnth. Limitations: no limitations Course Vital Signs 07/06/19 07/06/19 11:00 11:24 Temperature 98.2 F Pulse Rate 62 Pulse Rate [ 70 [employer] ] Respiratory 18 Rate Blood Pressure 114/73 O2 Sat by Pulse 98 Oximetry Medical Decision Making - Medical Decision Making 34-year-old male patient passed history of retention COPD presents ED for evaluation of pain in his shoulders bilaterally. Patient reports that 3 days ago he was working at his job which requires physical exertion and with upper arm movement he is having some pain in the right upper shoulder. She reports that the next day this also occurred in the left side. Patient reports that he has not had any pain today. He wants to be evaluated for this discomfort he is experiencing prior days. Patient also complains of right ankle pain has been bothering him for the last 2 months. Reports that it hurts with walking. Denies any cough congestion fever shortness of breath. Patient vital signs are stable, afebrile. Physical exam thin right lateral malleolus be mildly tender to palpation. No respiratory intact no skin changes. EKG is nonischemic. Laboratory investigations revealed a leukocytosis of 16.3. CMP non-impressive. Troponin is negative. Plain film ankle revealed no acute process. Chest x-ray revealed patchy right his liver disease may represent atelectasis or recurrent pneumonia. Hilar prominence bilaterally presents and bases laboratory assessment her pulmonary hypertension or adenopathy. Patient pain atypical appears musculoskeletal in nature. Patient will have close outpatient follow-up for chest x-ray findings with recommended CT of the chest by primary care provider. patient verbalizes verbalize understanding. Pt will be treated with azithromycin for possible pneumonia. Patient about orthopedic consult if ankle continues given pain. Advised to use anti-inflammatories as needed. And to limit weight bearing if it causes him discomfort. Patient to follow up with primary care provider tomorrow and will return to ER if condition worsens in any way. Case discussed with Dr. Ramírez. - Lab Data Result diagrams: 07/06/19 12:12 07/06/19 12:12 Lab Results 07/06/19 07/06/19 07/06/19 Range/Units 12:12 12:12 12:12 WBC 16.3 H (3.8-10.6) k/uL RBC 4.98 (4.30-5.90) m/uL Hgb 15.1 (13.0-17.5) gm/dL Hct 45.2 (39.0-53.0) % MCV 90.7 (80.0-100.0) fL MCH 30.3 (25.0-35.0) pg MCHC 33.4 (31.0-37.0) g/dL RDW 13.8 (11.5-15.5) % Plt Count 291 (150-450) k/uL Neutrophils % 80 % Lymphocytes % 12 % Monocytes % 4 % Eosinophils % 3 % Basophils % 1 % Neutrophils # 13.0 H (1.3-7.7) k/uL Lymphocytes # 1.9 (1.0-4.8) k/uL Monocytes # 0.7 (0-1.0) k/uL Eosinophils # 0.5 (0-0.7) k/uL Basophils # 0.1 (0-0.2) k/uL Sodium 137 (137-145) mmol/L Potassium 4.4 (3.5-5.1) mmol/L Chloride 108 H (98-107) mmol/L Carbon Dioxide 22 (22-30) mmol/L Anion Gap 7 mmol/L BUN 17 (9-20) mg/dL Creatinine 0.76 (0.66-1.25) mg/dL Est GFR (CKD-EPI)AfAm >90 (>60 ml/min/1.73 sqM) Est GFR (CKD-EPI)NonAf >90 (>60 ml/min/1.73 sqM) Glucose 91 (74-99) mg/dL Calcium 8.9 (8.4-10.2) mg/dL Total Bilirubin 0.2 (0.2-1.3) mg/dL AST 18 (17-59) U/L ALT 11 (4-49) U/L Alkaline Phosphatase 55 (38-126) U/L Troponin I <0.012 (0.000-0.034) ng/mL Total Protein 6.0 L (6.3-8.2) g/dL Albumin 3.4 L (3.5-5.0) g/dL Coronavirus (PCR) (Not Detectd) 07/06/19 Range/Units 13:20 WBC (3.8-10.6) k/uL RBC (4.30-5.90) m/uL Hgb (13.0-17.5) gm/dL Hct (39.0-53.0) % MCV (80.0-100.0) fL MCH (25.0-35.0) pg MCHC (31.0-37.0) g/dL RDW (11.5-15.5) % Plt Count (150-450) k/uL Neutrophils % % Lymphocytes % % Monocytes % % Eosinophils % % Basophils % % Neutrophils # (1.3-7.7) k/uL Lymphocytes # (1.0-4.8) k/uL Monocytes # (0-1.0) k/uL Eosinophils # (0-0.7) k/uL Basophils # (0-0.2) k/uL Sodium (137-145) mmol/L Potassium (3.5-5.1) mmol/L Chloride (98-107) mmol/L Carbon Dioxide (22-30) mmol/L Anion Gap mmol/L BUN (9-20) mg/dL Creatinine (0.66-1.25) mg/dL Est GFR (CKD-EPI)AfAm (>60 ml/min/1.73 sqM) Est GFR (CKD-EPI)NonAf (>60 ml/min/1.73 sqM) Glucose (74-99) mg/dL Calcium (8.4-10.2) mg/dL Total Bilirubin (0.2-1.3) mg/dL AST (17-59) U/L ALT (4-49) U/L Alkaline Phosphatase (38-126) U/L Troponin I (0.000-0.034) ng/mL Total Protein (6.3-8.2) g/dL Albumin (3.5-5.0) g/dL Coronavirus (PCR) Not Detected (Not Detectd) - EKG Data -: EKG Interpreted by Me (and Dr. Ramírez) EKG Comments: Ventricular rate 68, painful 154, QRS 84, QT/QTC 364/37. Sinus Arrhythmia. Possible septal infarct age intermittent. No concern for acute ischemia at this time. Disposition Clinical Impression: Musculoskeletal pain, Pneumonia Disposition: HOME SELF-CARE Condition: Stable Instructions (If sedation given, give patient instructions): Musculoskeletal Pain (ED), Arthralgia (ED) Additional Instructions: Follow-up with primary care provider tomorrow. Follow up with orthopedic c onsult if ankle pain persists. Have outpatient CAT scan of chest with contrast. Return immediately to ER if condition worsens in any way. Prescriptions: Azithromycin [Zithromax Z-pack] 0 mg PO DIRECTED #6 tab Is patient prescribed a controlled substance at d/c from ED?: No Referrals: Michael Ruffin MD [Primary Care Provider] - 1-2 days
[2019-07-06 14:31] VITALS: BP 127/65; PULSE 67; RESP 16; TEMP 98.3
== END 2019-07-06 14:31 | disposition home or self-care (01) ==
LOC: EC 10:51
DX: Z03.818 Encounter for observation for suspected exposure to other biological agents ruled out (principal); J18.9 Pneumonia, unspecified organism; M79.18 Myalgia, other site; D72.829 Elevated white blood cell count, unspecified; K76.9 Liver disease, unspecified; J44.9 Chronic obstructive pulmonary disease, unspecified; G47.33 Obstructive sleep apnea (adult) (pediatric); F17.200 Nicotine dependence, unspecified, uncomplicated; Z88.8 Allergy status to other drugs, medicaments and biological substances; Z91.048 Other nonmedicinal substance allergy status
CPT/HCPCS: 36415; 71046; 80053; 84484; 85025; 87635; 93005; 99285

== ENCOUNTER 2019-07-13 13:03 | Emergency (ER) | payer MEDICARE ==
[2019-07-13 13:16] VITALS: BP 111/69; PULSE 70; TEMP 98.9
--- NOTE | 2019-07-13 13:30 | ED ---
General Adult HPI - General Chief complaint: Extremity Injury, Lower Stated complaint: right ankle pain Time Seen by Provider: 07/13/19 13:19 Source: patient, RN notes reviewed Mode of arrival: ambulatory Limitations: no limitations - History of Present Illness Initial comments: 34-year-old male presents to the emergency department for right ankle pain for several months. Patient states it is painful when he walks. He denies fevers or chills. Denies redness or swelling. Patient states he was seen here once before because of this and had negative x-rays. He was told to follow-up with orthopedics but he could not be seen there. He presents again for the same complaint. Denies any changes in this pain. States he has a note to do a more for it. States he tried to call his primary in their scheduling months out. He states he walks bowlegged and this could've something to do with it.Patient has no other complaints at this time including shortness of breath, chest pain, abdominal pain, nausea or vomiting, headache, or visual changes. - Related Data Previous Rx's Medication Instructions Recorded Levofloxacin [Levaquin] 500 mg PO Q24H #10 tab 04/22/19 Oseltamivir [Tamiflu] 75 mg PO Q12HR #10 cap 04/22/19 methylPREDNISolone Dose Pack 24 mg PO DAILY #1 tab 04/22/19 [Medrol Dose Pack] Azithromycin [Zithromax Z-pack] 0 mg PO DIRECTED #6 tab 07/06/19 Allergies Allergy/AdvReac Type Severity Reaction Status Date / Time wool Allergy Rash/Hives Verified 07/06/19 11:03 methylphenidate HCl AdvReac Nausea & Verified 07/06/19 11:03 [From Ritalin] Vomiting olanzapine [From Zyprexa] AdvReac Nausea & Verified 07/06/19 11:03 Vomiting Review of Systems ROS Statement: Those systems with pertinent positive or pertinent negative responses have been documented in the HPI. ROS Other: All systems not noted in ROS Statement are negative. Past Medical History Past Medical History: Hypertension, Osteoarthritis (OA), Seizure Disorder, Sleep Apnea/CPAP/BIPAP Additional Past Medical History / Comment(s): Other HX: Last seizure 03/12/15, DJD, arthritis in right pelvic bone and R knee, TRACI (unable to tolerate CPAP), insomnia. History of Any Multi-Drug Resistant Organisms: None Reported Past Surgical History: Appendectomy Additional Past Surgical History / Comment(s): 09/2014 Lap appy Past Anesthesia/Blood Transfusion Reactions: No Reported Reaction Past Psychological History: Anxiety, Bipolar, Depression, Panic Disorder, Schizoaffective Disorder, Schizophrenia Smoking Status: Current every day smoker Past Alcohol Use History: Occasional Past Drug Use History: None Reported - Past Family History Father Family Medical History: Hypertension, Myocardial Infarction ([place]) Additional Family Medical History / Comment(s): Pt reports his father of an [place] at the age of 48. Mother History Unknown: Yes Family Medical History: Cancer Additional Family Medical History / Comment(s): Recently diagnosed with breast cancer. General Exam Limitations: no limitations General appearance: alert, in no apparent distress Head exam: Present: atraumatic, normocephalic, normal inspection Eye exam: Present: normal appearance, PERRL, EOMI. Absent: scleral icterus, conjunctival injection, periorbital swelling ENT exam: Present: normal exam, mucous membranes moist Neck exam: Present: normal inspection. Absent: tenderness, meningismus, lymphadenopathy Respiratory exam: Present: normal lung sounds bilaterally. Absent: respiratory distress, wheezes, rales, rhonchi, stridor Cardiovascular Exam: Present: regular rate, normal rhythm, normal heart sounds. Absent: systolic murmur, diastolic murmur, rubs, gallop, clicks Extremities exam: Present: full ROM (Full range of motion of the right ankle), normal capillary refill (Capillary refill less than 2 seconds, DP pulse 2+ in the right lower extremity.), other (Sensation intact in the right lower extremity.). Absent: tenderness (Tenderness of the lateral malleolus of the right ankle. Full range of motion of all digits of the right foot. No fifth metatarsal tenderness. No navicular tenderness. No tenderness of the remainder of the right foot. No medial malleoli tenderness of the right ankle.), pedal edema, joint swelling (I do not see any edema erythema or ecchymosis of the right ankle.), calf tenderness Course Vital Signs 07/13/19 13:11 Temperature 98.9 F Pulse Rate 70 Respiratory 18 Rate Blood Pressure 111/69 O2 Sat by Pulse 97 Oximetry Medical Decision Making - Medical Decision Making Patient had an x-ray of the right ankle completed one week ago for this same exact complaint. This showed no acute fracture or dislocation. He denies ever having injured this since the x-ray. I discussed with patient that repeat x-ray will likely not show any new pathology. He is agreeable to this. He is already wearing a brace and taking NSAIDs. I discussed he needs to have follow-up, at this point I am limited with what also can do through the ER. He requested an MRI which I informed him I cannot perform here today. He was given a referral to another orthopedic office as well as to podiatry given that his gait could be causing his ankle pain. He will also follow up with primary care and return for any worsening symptoms. Disposition Clinical Impression: Chronic pain of right ankle Disposition: HOME SELF-CARE Condition: Good Instructions (If sedation given, give patient instructions): Ankle Sprain (ED) Additional Instructions: Please follow up with primary care, orthopedics, and/or podiatry. Take Motrin and Tylenol for pain. Return to the emergency department for any worsening symptoms. Is patient prescribed a controlled substance at d/c from ED?: No Referrals: Michael Ruffin MD [Primary Care Provider] - 1-2 days Carroll Pulido DO [Doctor of Osteopathic Medicine] - 1-2 days Luis M Leon DPM [STAFF PHYSICIAN] - 1-2 days Time of Disposition: 13:29
[2019-07-13 13:51] VITALS: RESP 200
== END 2019-07-13 14:02 | disposition home or self-care (01) ==
LOC: EC 13:03
DX: G89.29 Other chronic pain (principal); M25.571 Pain in right ankle and joints of right foot; F17.200 Nicotine dependence, unspecified, uncomplicated; G47.33 Obstructive sleep apnea (adult) (pediatric); Z99.89 Dependence on other enabling machines and devices; Z87.39 Personal history of other diseases of the musculoskeletal system and connective tissue; Z91.048 Other nonmedicinal substance allergy status; Z88.8 Allergy status to other drugs, medicaments and biological substances
CPT/HCPCS: 99283

== ENCOUNTER 2019-08-08 09:25 | Emergency (ER) | payer OTHER ==
[2019-08-08 09:30] VITALS: BP 135/84; PULSE 87; RESP 18; TEMP 98.2
--- NOTE | 2019-08-08 10:32 | CT ---
EXAMINATION TYPE: CT brain wo con DATE OF EXAM: 08/08/2019 COMPARISON: CT brain November 02, 2010. HISTORY: Headaches, Post traumatic injury few days ago CT DLP: 1099.4 mGycm. Automated Exposure Control for Dose Reduction was Utilized. TECHNIQUE: CT scan of the head is performed without contrast. FINDINGS: There is no acute intracranial hemorrhage, mass effect, or midline shift identified. The ventricles and sulci are within normal limits in size. The globes are intact and the visualized sin uses are clear. The calvarium is intact. Soft tissue density deep right external auditory canal is th ought to reflect cerumen and was present on prior study. IMPRESSION: No acute intracranial hemorrhage, mass effect, or midline shift is seen. No significant change from prior.
--- NOTE | 2019-08-08 11:06 | ED ---
General Adult HPI - General Chief complaint: Head Injury Stated complaint: Head injury few days ago Time Seen by Provider: 08/08/19 09:35 Source: patient, RN notes reviewed, old records reviewed Mode of arrival: ambulatory Limitations: no limitations - History of Present Illness Initial comments: 34-year-old male patient presents ED chief complaint of nausea pain and headache after hitting his head. Patient reports that 4 days ago he states that he hit the left side of his head at work on his left posterior temporal region. Patient reports that since he has had a mild headache and nausea as well. Denies any changes in vision. Denies any other complaints. Systemic: Pt denies fatigue, fever/chills, rash. Pt denies weakness, night sweats, weight loss. Neuro: Pt denies visual disturbances, syncope or pre-syncope. HEENT: Pt denies ocular discharge or irritation, otalgia, rhinorrhea, pharyngitis or notable lymphadenopathy. Cardiopulmonary: Pt denies chest pain, SOB, heart palpitations, dyspnea on exertion. Abdominal/GI: Pt denies abdominal pain, n/v/d. : Pt denies dysuria, burning w/ urination, frequency/urgency. Denies new onset urinary or bowel incontinence. MSK: Pt denies myalgia, loss of strength or function in extremities. Neuro: Pt denies new onset weakness, paresthesias. - Related Data Previous Rx's Medication Instructions Recorded Levofloxacin [Levaquin] 500 mg PO Q24H #10 tab 04/22/19 Oseltamivir [Tamiflu] 75 mg PO Q12HR #10 cap 04/22/19 methylPREDNISolone Dose Pack 24 mg PO DAILY #1 tab 04/22/19 [Medrol Dose Pack] Azithromycin [Zithromax Z-pack] 0 mg PO DIRECTED #6 tab 07/06/19 Allergies Allergy/AdvReac Type Severity Reaction Status Date / Time wool Allergy Rash/Hives Verified 08/08/19 09:30 methylphenidate HCl AdvReac Nausea & Verified 08/08/19 09:30 [From Ritalin] Vomiting olanzapine [From Zyprexa] AdvReac Nausea & Verified 08/08/19 09:30 Vomiting Review of Systems ROS Statement: Those systems with pertinent positive or pertinent negative responses have been documented in the HPI. ROS Other: All systems not noted in ROS Statement are negative. Past Medical History Past Medical History: Hypertension, Osteoarthritis (OA), Seizure Disorder, Sleep Apnea/CPAP/BIPAP Additional Past Medical History / Comment(s): Other HX: Last seizure 03/12/15, DJD, arthritis in right pelvic bone and R knee, TRACI (unable to tolerate CPAP), insomnia. History of Any Multi-Drug Resistant Organisms: None Reported Past Surgical History: Appendectomy Additional Past Surgical History / Comment(s): 09/2014 Lap appy Past Anesthesia/Blood Transfusion Reactions: No Reported Reaction Past Psychological History: Anxiety, Bipolar, Depression, Panic Disorder, Schizoaffective Disorder, Schizophrenia Smoking Status: Current every day smoker Past Alcohol Use History: Rare Past Drug Use History: None Reported - Past Family History Father Family Medical History: Hypertension, Myocardial Infarction ([place]) Additional Family Medical History / Comment(s): Pt reports his father of an [place] at the age of 48. Mother History Unknown: Yes Family Medical History: Cancer Additional Family Medical History / Comment(s): Recently diagnosed with breast cancer. General Exam - General Exam Comments Initial Comments: Constitutional: NAD, AOX3, Pt has pleasant affect. HEENT: NC/AT, trachea midline, neck supple, no lymphadenopathy. Posterior pharynx non erythematous, without exudates. External ears appear normal, without discharge. Mucous membranes moist. Eyes PERRLA, EOM intact. There is no scleral icterus. No pallor noted. Cardiopulmonary: RRR, no murmurs, rubs or gallops, no JVD noted. Lungs CTAB in anterior and posterior dasilva. No peripheral edema. Abdominal exam: Abdomen soft and non-distended. Abdomen non-tender to palpation in all 4 quadrants. Bowel sounds active in LLQ. No hepatosplenomegaly. No ecchymosis Neuro: CN II-XII intact. No nuchal rigidity. No raccon eyes, no lagos sign. No cervical spinal tenderness. NIH 0. Mildly tender region of posterior temporal bone. No skin changes. No tenderness of left sided temporal region. MSK: No posterior calf tenderness bilaterally, homans sign negative bilaterally. Posterior tibialis and radial pulse +2 bilaterally. Sensation intact in upper and lower extremities. Full active ROM in upper and lower extremities, 5/5 stregnth. Limitations: no limitations Course Vital Signs 08/08/19 09:26 Temperature 98.2 F Pulse Rate 87 Respiratory 18 Rate Blood Pressure 135/84 O2 Sat by Pulse 98 Oximetry Medical Decision Making - Medical Decision Making 34-year-old male patient presents ED chief complaint of nausea pain and headache after hitting his head. Patient reports that 4 days ago he states that he hit the left side of his head at work on his left posterior temporal region. Patient reports that since he has had a mild headache and nausea as well. Denies any changes in vision. Denies any other complaints. Patient vital signs are stable, afebrile. Physical exam displayed intact neurologic exam, mild tenderness to palpation left posterior temporal region. No skin changes. CT brain without contrast and display any acute intracranial hemorrhage or mass effect or midline shift. Patient is likely experiencing concussive symptoms. Patient reports that the nausea and his headache resolved yesterday. The area of tenderness is where he hit his head. Will be discharged with return precautions and outpatient PCP follow up. Case discussed with Dr. Fuentes. Disposition Clinical Impression: Concussion Disposition: HOME SELF-CARE Condition: Stable Instructions (If sedation given, give patient instructions): Concussion (ED) Additional Instructions: Follow-up with primary care provider tomorrow. Return to ER if condition worsens. Is patient prescribed a controlled substance at d/c from ED?: No Referrals: Michael Ruffin MD [Primary Care Provider] - 1-2 days
== END 2019-08-08 11:41 | disposition home or self-care (01) ==
LOC: EC 09:25
DX: S06.0X9A Concussion with loss of consciousness of unspecified duration, initial encounter (principal); F17.200 Nicotine dependence, unspecified, uncomplicated; Z88.8 Allergy status to other drugs, medicaments and biological substances; Z91.048 Other nonmedicinal substance allergy status; W22.8XXA Striking against or struck by other objects, initial encounter
CPT/HCPCS: 70450; 99284

== ENCOUNTER 2019-11-02 16:14 | Emergency (ER) | payer OTHER ==
[2019-11-02 16:17] VITALS: BP 150/91; PULSE 67; RESP 16; TEMP 98.1
--- NOTE | 2019-11-02 16:54 | ED ---
Extremity Problem HPI - General Chief complaint: Extremity Problem,Nontraumatic Stated complaint: Elbow pain Time Seen by Provider: 11/02/19 16:31 Source: patient Mode of arrival: ambulatory Limitations: no limitations - History of Present Illness Initial comments: patient is a 34-year-old male presenting to emergency Department with complaints of pain in his left elbow there is been increasing over the past few weeks. He denies any injuries or falls. He denies any fever or chills. He denies any previous surgeries to that elbow. He is right-hand dominant. 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 He has no further complaints at this time. - Related Data Previous Rx's Medication Instructions Recorded Levofloxacin [Levaquin] 500 mg PO Q24H #10 tab 04/22/19 Oseltamivir [Tamiflu] 75 mg PO Q12HR #10 cap 04/22/19 methylPREDNISolone Dose Pack 24 mg PO DAILY #1 tab 04/22/19 [Medrol Dose Pack] Azithromycin [Zithromax Z-pack] 0 mg PO DIRECTED #6 tab 07/06/19 Allergies Allergy/AdvReac Type Severity Reaction Status Date / Time wool Allergy Rash/Hives Verified 08/08/19 09:30 methylphenidate HCl AdvReac Nausea & Verified 08/08/19 09:30 [From Ritalin] Vomiting olanzapine [From Zyprexa] AdvReac Nausea & Verified 08/08/19 09:30 Vomiting Review of Systems ROS Statement: Those systems with pertinent positive or pertinent negative responses have been documented in the HPI. ROS Other: All systems not noted in ROS Statement are negative. Past Medical History Past Medical History: Hypertension, Osteoarthritis (OA), Seizure Disorder, Sleep Apnea/CPAP/BIPAP Additional Past Medical History / Comment(s): Other HX: Last seizure 03/12/15, DJ D, arthritis in right pelvic bone and R knee, TRACI (unable to tolerate CPAP), insomnia. History of Any Multi-Drug Resistant Organisms: None Reported Past Surgical History: Appendectomy Additional Past Surgical History / Comment(s): 09/2014 Lap appy Past Anesthesia/Blood Transfusion Reactions: No Reported Reaction Past Psychological History: Anxiety, Bipolar, Depression, Panic Disorder, Schizoaffective Disorder, Schizophrenia Past Alcohol Use History: Rare Past Drug Use History: None Reported - Past Family History Father Family Medical History: Hypertension, Myocardial Infarction (VT) Additional Family Medical History / Comment(s): Pt reports his father of an VT at the age of 48. Mother History Unknown: Yes Family Medical History: Cancer Additional Family Medical History / Comment(s): Recently diagnosed with breast cancer. General Exam - General Exam Comments Initial Comments: GENERAL: Patient is well-developed and well-nourished. Patient is nontoxic and in no acute distress. HEAD: Atraumatic, normocephalic. EYES: Pupils equal round and reactive to light, extraocular movements intact, sclera anicteric, conjunctiva are normal. Eyelids were unremarkable. ENT: TMs normal, nares patent, oropharynx clear without exudates. Moist mucous membranes. NECK: Normal range of motion, supple without lymphadenopathy or JVD. LUNGS: Unlabored respirations. Breath sounds clear to auscultation bilaterally and equal. No wheezes rales or rhonchi. HEART: Regular rate and rhythm without murmurs, rubs or gallops. ABDOMEN: Soft, nontender, normoactive bowel sounds. No guarding, no rebound. No masses appreciated. : Deferred MUSCULOSKELETAL: Patient has pain with palpation over the medial and lateral epicondyles, he does have full range of motion of the left elbow. There is no overlying erythema or signs of infection. There is no swelling or deformity. He is neurovascular intact. Rest of extremities are normal. No pitting or edema. No clubbing or cyanosis. NEUROLOGICAL: Patient is alert and oriented x 3. Motor and sensory are also intact. Normal speech, normal gait. PSYCH: Normal mood, normal affect. SKIN: Warm, Dry, normal turgor, no rashes or lesions noted. Limitations: no limitations Course Vital Signs 11/02/19 16:15 Temperature 98.1 F Pulse Rate 67 Respiratory 16 Rate Blood Pressure 150/91 O2 Sat by Pulse 98 Oximetry Medical Decision Making - Medical Decision Making patient is a 34-year-old male here for left elbow pain has been increasing for the past few weeks. He's had no injuries or falls, no previous injuries. He is not febrile. Patient's exam is consistent with medial and lateral epicondylitis. There is no signs of infection, no swelling. He does have full range of motion. I recommended ice to the areas, gentle massage, ibuprofen or Aleve for discomfort. Limit repetitive motions. If his symptoms persist he needs to follow up with orthopedics. He is stable for discharge. He is in agreement with this plan of care. Disposition Clinical Impression: Lateral epicondylitis, left elbow, Medial epicondylitis, left elbow Disposition: HOME SELF-CARE Condition: Stable Instructions (If sedation given, give patient instructions): Tennis Elbow (ED) Additional Instructions: Please return to the Emergency Department if symptoms worsen or any other concerns. Recommend ice to the area, gentle massage, ibuprofen or Aleve. May also wear band around the arm as discussed. Limit repetitive motions. If symptoms persist follow-up with orthopedics. Is patient prescribed a controlled substance at d/c from ED?: No Referrals: Michael Ruffin MD [Primary Care Provider] - 1-2 days Yaya Tejada DO [Doctor of Osteopathic Medicine] - 1-2 days
== END 2019-11-02 17:05 | disposition home or self-care (01) ==
LOC: EC 16:14
DX: M77.12 Lateral epicondylitis, left elbow (principal); M77.02 Medial epicondylitis, left elbow; G47.33 Obstructive sleep apnea (adult) (pediatric); Z99.89 Dependence on other enabling machines and devices; Z91.09 Other allergy status, other than to drugs and biological substances; Z88.8 Allergy status to other drugs, medicaments and biological substances
CPT/HCPCS: 99283

== ENCOUNTER 2020-06-26 17:35 | Emergency (ER) | payer OTHER ==
[2020-06-26 17:45] VITALS: TEMP 97.9
--- NOTE | 2020-06-26 18:36 | XR ---
EXAMINATION TYPE: XR femur RT DATE OF EXAM: 06/26/2020 COMPARISON: NONE HISTORY: Pain. Fall. TECHNIQUE: 4 views FINDINGS: I see no fracture nor dislocation. Knee joint and hip joint appear intact. There is develop mentally short femoral neck. Hip joint space is fairly normal however. IMPRESSION: No acute abnormality of the right femur.
--- NOTE | 2020-06-26 18:38 | XR ---
EXAMINATION TYPE: XR Hip Complete RT DATE OF EXAM: 06/26/2020 COMPARISON: 09/15/2014 HISTORY: Fall. Hip pain. TECHNIQUE: 2 views FINDINGS: I see no fracture nor dislocation. There is some femoral neck deformity consistent with old hip dysplasia. Hip joint space is normal. Sacroiliac joint is normal. IMPRESSION: There is some femoral neck deformity stable compared to old exam. No acute abnormality.
[2020-06-26] MEDS ORDERED: KETOROLAC 15 MG/ML 1 ML VIAL IM STA (19:06)
--- NOTE | 2020-06-26 19:06 | ED ---
Lower Extremity Injury HPI - General Source: patient Mode of arrival: ambulatory Limitations: no limitations <Carlos Manuel Sims - Last Filed: 06/26/20 19:58> <Graciela Brown - Last Filed: 06/28/20 01:49> - General Chief Complaint: Extremity Injury, Lower Stated Complaint: Hip pain Time Seen by Provider: 06/26/20 18:12 - History of Present Illness Initial Comments: 35-year-old male presents to the emergency department the chief complaint of right hip pain. Patient reports several days ago he suffered a mechanical fall to the right side of his body. Patient believes she twisted his right leg and now he's having pain and right hip. Patient reports is exacerbated with ambulation and weightbearing. Denies any numbness or tingling. Denies any overlying scaly skin changes. Does have history of hip dysplasia. He used to see an orthopedic doctor but not anymore. Patient denies loss of consciousness, head injury or blood thinners. (Carlos Manuel Sims) - Related Data Home Medications Medication Instructions Recorded Confirmed No Known Home Medications 06/26/20 06/26/20 Allergies Allergy/AdvReac Type Severity Reaction Status Date / Time wool Allergy Rash/Hives Verified 06/26/20 19:06 methylphenidate HCl AdvReac Nausea & Verified 06/26/20 19:06 [From Ritalin] Vomiting olanzapine [From Zyprexa] AdvReac Nausea & Verified 06/26/20 19:06 Vomiting Review of Systems ROS Other: All systems not noted in ROS Statement are negative. <Carlos Manuel Sims - Last Filed: 06/26/20 19:58> ROS Other: All systems not noted in ROS Statement are negative. <Graciela Brown - Last Filed: 06/28/20 01:49> ROS Statement: Those systems with pertinent positive or pertinent negative responses have been documented in the HPI. Past Medical History Past Medical History: Hypertension, Osteoarthritis (OA), Seizure Disorder, Sleep Apnea/CPAP/BIPAP Additional Past Medical History / Comment(s): Other HX: Last seizure 03/12/15, DJD, arthritis in right pelvic bone and R knee, TRACI (unable to tolerate CPAP), insomnia. History of Any Multi-Drug Resistant Organisms: None Reported Past Surgical History: Appendectomy Additional Past Surgical History / Comment(s): 09/2014 Ajay appy Past Anesthesia/Blood Transfusion Reactions: No Reported Reaction Past Psychological History: Anxiety, Bipolar, Depression, Panic Disorder, Schizoaffective Disorder, Schizophrenia Smoking Status: Never smoker Past Alcohol Use History: Rare Past Drug Use History: None Reported - Past Family History Father Family Medical History: Hypertension, Myocardial Infarction (VT) Additional Family Medical History / Comment(s): Pt reports his father of an VT at the age of 48. Mother History Unknown: Yes Family Medical History: Cancer Additional Family Medical History / Comment(s): Recently diagnosed with breast cancer. <Carlos Manuel Sims Last Filed: 06/26/20 19:58> General Exam Limitations: no limitations General appearance: alert, in no apparent distress, obese Head exam: Present: atraumatic, normocephalic, normal inspection Eye exam: Present: normal appearance, PERRL, EOMI Pupils: Present: normal accommodation ENT exam: Present: normal exam, normal oropharynx, mucous membranes moist, TM's normal bilaterally, normal external ear exam Neck exam: Present: normal inspection, full ROM. Absent: tenderness Respiratory exam: Present: normal lung sounds bilaterally. Absent: respiratory distress Cardiovascular Exam: Present: regular rate, normal rhythm, normal heart sounds. Absent: systolic murmur Extremities exam: Present: normal inspection, tenderness (. right hip tenderness. ), normal capillary refill, other (Palpable DP and PT bilaterally. Sensation intact in bilateral lower extremities.). Absent: full ROM (limited range of motion with hip flexion), pedal edema, joint swelling, calf tenderness Back exam: Present: normal inspection, full ROM. Absent: tenderness, CVA tenderness (R), CVA tenderness (L) Neurological exam: Present: alert, oriented X3, normal gait Psychiatric exam: Present: normal affect, normal mood Skin exam: Present: warm, dry, intact, normal color <Carlos Manuel Sims Last Filed: 06/26/20 19:58> Course Vital Signs 06/26/20 06/26/20 17:42 19:37 Temperature 97.9 F Pulse Rate 87 67 Respiratory 18 16 Rate Blood Pressure 100/33 135/82 O2 Sat by Pulse 99 97 Oximetry Medical Decision Making <Carlos Manuel Sims Last Filed: 06/26/20 19:58> <Graciela Brown - Last Filed: 06/28/20 01:49> - Medical Decision Making Patient is neurovascularly intact and physical examination. Patient was given Toradol for pain. Advised to continue between Tylenol and Motrin. X-ray of the femur and hip showed no acute findings. There is a femoral neck deformity consistent with old hip dysplasia. Patient advised to follow-up with job training specialist if symptoms continue. Return parameters were thoroughly discussed with patient was understanding and agreeable. Case discussed with (Carlos Manuel Sims) I was available for consultation in the emergency department. The history and physical exam were done by the midlevel provider. I was consulted for this patients care. I reviewed the case with the midlevel provider and based on their presentation of the patient, I agree with the assessment, medical decision making and plan of care as documented. Chart was dictated using [employer] dictation software. Attempts were made to correct any dictation errors however some typographical errors may persist. Patient was seen during a national state of emergency due to the Covid-19 pandemic. (Graciela Brown) Disposition Is patient prescribed a controlled substance at d/c from ED?: No Time of Disposition: 19:06 <Carlos Manuel Sims - Last Filed: 06/26/20 19:58> <Graciela Brown - Last Filed: 06/28/20 01:49> Clinical Impression: Injury of right hip Disposition: HOME SELF-CARE Condition: Stable Instructions (If sedation given, give patient instructions): Hip Sprain (ED) Additional Instructions: follow-up with job training specialist. Return to emergency department if symptoms worse. Referrals: Michael Ruffin MD [Primary Care Provider] - 1-2 days Clint Rebolledo PAC [PHYSICIAN WINDOWS SYSTEMS ENGINEER] - 1-2 days
[2020-06-26 19:39] VITALS: BP 135/82; PULSE 67; RESP 16
== END 2020-06-26 19:41 | disposition home or self-care (01) ==
LOC: EC 17:35
DX: S79.911A Unspecified injury of right hip, initial encounter (principal); I10 Essential (primary) hypertension; G47.33 Obstructive sleep apnea (adult) (pediatric); M19.90 Unspecified osteoarthritis, unspecified site; F41.9 Anxiety disorder, unspecified; F32.9 Major depressive disorder, single episode, unspecified; W19.XXXA Unspecified fall, initial encounter
CPT/HCPCS: 73502; 73552; 99283; 96372; J1885

== ENCOUNTER 2020-10-09 15:36 | Emergency (ER) | payer MEDICARE, OTHER ==
[2020-10-09 15:40] VITALS: BP 130/72; PULSE 110; RESP 16; TEMP 98.2
[2020-10-09] MEDS ORDERED: KETOROLAC 15 MG/ML 1 ML VIAL IM STA (15:51)
--- NOTE | 2020-10-09 16:14 | XR ---
EXAMINATION TYPE: XR ankle complete RT, XR foot complete RT DATE OF EXAM: 10/09/2020 CLINICAL HISTORY: Right ankle and foot pain after slipping injury yesterday TECHNIQUE: Frontal, lateral and oblique images of the right ankle and foot are obtained. COMPARISON: Right ankle radiograph 07/06/2019 FINDINGS: Ankle: No acute fracture or dislocation. Ankle mortise appears congruent. Mild soft tissue swelling a long the dorsum of the ankle. Joint spaces are maintained. Foot: No acute fracture or dislocation. Mild soft tissue swelling along the dorsum of the foot and an kle.. Joint spaces are maintained. Tiny plantar calcaneal spur. IMPRESSION: No acute fracture or dislocation.
--- NOTE | 2020-10-09 16:23 | ED ---
Lower Extremity Injury HPI - General Chief Complaint: Extremity Injury, Lower Stated Complaint: Rt Ankle Injury Time Seen by Provider: 10/09/20 15:44 Source: patient Mode of arrival: wheelchair Limitations: no limitations - History of Present Illness Initial Comments: 35-year-old male presents to emergency Department with a chief complaint of right ankle injury. Patient reports yesterday he slipped on some water and caused an inversion injury to his right ankle. Patient reports most pain is located along the medial malleolus but he also reports some swelling along the foot. Denies any paresthesias or weakness in the foot, however pain is worse with ambulation and weightbearing. Denies any ecchymosis or erythema. Eyes taking medication to alleviate the symptoms. - Related Data Home Medications Medication Instructions Recorded Confirmed No Known Home Medications 06/26/20 06/26/20 Allergies Allergy/AdvReac Type Severity Reaction Status Date / Time wool Allergy Rash/Hives Verified 10/09/20 15:40 methylphenidate HCl AdvReac Nausea & Verified 10/09/20 15:40 [From Ritalin] Vomiting olanzapine [From Zyprexa] AdvReac Nausea & Verified 10/09/20 15:40 Vomiting Review of Systems ROS Statement: Those systems with pertinent positive or pertinent negative responses have been documented in the HPI. ROS Other: All systems not noted in ROS Statement are negative. Past Medical History Past Medical History: Hypertension, Osteoarthritis (OA), Seizure Disorder, Sleep Apnea/CPAP/BIPAP Additional Past Medical History / Comment(s): Other HX: Last seizure 03/12/15, DJD, arthritis in right pelvic bone and R knee, TRACI (unable to tolerate CPAP), insomnia. History of Any Multi-Drug Resistant Organisms: None Reported Past Surgical History: Appendectomy Additional Past Surgical History / Comment(s): 09/2014 Ajay appsid Past Anesthesia/Blood Transfusion Reactions: No Reported Reaction Past Psychological History: Anxiety, Bipolar, Depression, Panic Disorder, Schizoaffective Disorder, Schizophrenia Smoking Status: Current every day smoker Past Alcohol Use History: Rare Past Drug Use History: None Reported - Past Family History Father Family Medical History: Hypertension, Myocardial Infarction (CT) Additional Family Medical History / Comment(s): Pt reports his father of an CT at the age of 48. Mother History Unknown: Yes Family Medical History: Cancer Additional Family Medical History / Comment(s): Recently diagnosed with breast cancer. General Exam Limitations: no limitations General appearance: alert, in no apparent distress, obese Head exam: Present: atraumatic, normocephalic, normal inspection Eye exam: Present: normal appearance, PERRL, EOMI Pupils: Present: normal accommodation ENT exam: Present: normal exam, normal oropharynx, mucous membranes moist Neck exam: Present: normal inspection, full ROM. Absent: tenderness Respiratory exam: Present: normal lung sounds bilaterally. Absent: respiratory distress Cardiovascular Exam: Present: regular rate, normal rhythm, normal heart sounds. Absent: systolic murmur Extremities exam: Present: full ROM, tenderness (Mid foot and medial malleoli tenderness), normal capillary refill, joint swelling (Right ankle), other (Palpable DP and PT bilaterally). Absent: normal inspection (Mild swelling along the ankle), calf tenderness Back exam: Present: normal inspection, full ROM. Absent: tenderness, CVA tenderness (R), CVA tenderness (L), muscle spasm, paraspinal tenderness, vertebral tenderness Neurological exam: Present: alert, oriented X3 Psychiatric exam: Present: normal affect, normal mood Skin exam: Present: warm, dry, intact, normal color Course Vital Signs 10/09/20 15:38 Temperature 98.2 F Pulse Rate 110 H Respiratory 16 Rate Blood Pressure 130/72 O2 Sat by Pulse 97 Oximetry Medical Decision Making - Medical Decision Making 35-year-old male presents to emergency Department with a chief complaint right ankle injury. On evaluation, he is neurovascularly intact. X-ray of the foot and ankle are unremarkable. Patient likely suffered an ankle sprain. Terrance wrap will be applied. Advised to follow-up with the direct marketing specialist. Strict return problems with thoroughly discussed the patient is an ascending agreeable. Case discussed with physician. Disposition Clinical Impression: Ankle sprain Disposition: HOME SELF-CARE Condition: Stable Instructions (If sedation given, give patient instructions): Ankle Sprain (ED) Additional Instructions: Follow-up with direct marketing specialist. Return to emergency department if symptoms worsen. Is patient prescribed a controlled substance at d/c from ED?: No Referrals: Michael Ruffin MD [Primary Care Provider] - 1-2 days Keyon Anderson DO [Doctor of Osteopathic Medicine] - 1-2 days Time of Disposition: 16:23
[2020-10-09] MEDS ORDERED: ACET/COD 300 MG/30 MG STARTER PACK 6 TAB BTL PO STA (16:28)
== END 2020-10-09 16:37 | disposition home or self-care (01) ==
LOC: EC 15:36
DX: S93.401A Sprain of unspecified ligament of right ankle, initial encounter (principal); I10 Essential (primary) hypertension; Z91.048 Other nonmedicinal substance allergy status; Z88.8 Allergy status to other drugs, medicaments and biological substances; F17.200 Nicotine dependence, unspecified, uncomplicated; W01.0XXA Fall on same level from slipping, tripping and stumbling without subsequent striking against object, initial encounter; Y92.410 Unspecified street and highway as the place of occurrence of the external cause
CPT/HCPCS: 99283; 96372; 73610; 73630; J1885

== ENCOUNTER 2020-11-17 17:26 | Emergency (ER) | payer MEDICARE, OTHER ==
[2020-11-17 18:09] VITALS: BP 103/60; PULSE 75; RESP 18; TEMP 98
--- NOTE | 2020-11-17 19:20 | ED ---
ENT HPI - General Chief complaint: ENT Stated complaint: ENT/Lost Voice Time Seen by Provider: 11/17/20 19:12 Source: patient, RN notes reviewed Mode of arrival: ambulatory Limitations: no limitations - History of Present Illness Initial comments: 35-year-old male presented to emergency department with chief complaint of lost voice, sore throat. 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 Patient denies any significant pain appears or chills no difficulty swallowing no other complaints. - Related Data Previous Rx's Medication Instructions Recorded predniSONE 50 mg PO DAILY #5 tab 11/17/20 Allergies Allergy/AdvReac Type Severity Reaction Status Date / Time wool Allergy Rash/Hives Verified 11/17/20 18:09 methylphenidate HCl AdvReac Nausea & Verified 11/17/20 18:09 [From Ritalin] Vomiting olanzapine [From Zyprexa] AdvReac Nausea & Verified 11/17/20 18:09 Vomiting Review of Systems ROS Statement: Those systems with pertinent positive or pertinent negative responses have been documented in the HPI. ROS Other: All systems not noted in ROS Statement are negative. Past Medical History Past Medical History: Hypertension, Osteoarthritis (OA), Seizure Disorder, Sleep Apnea/CPAP/BIPAP Additional Past Medical History / Comment(s): Other HX: Last seizure 03/12/15, DJD, arthritis in right pelvic bone and R knee, TRACI (unable to tolerate CPAP), insomnia. History of Any Multi-Drug Resistant Organisms: None Reported Past Surgical History: Appendectomy Additional Past Surgical History / Comment(s): 09/2014 Lap appsid Past Anesthesia/Blood Transfusion Reactions: No Reported Reaction Past Psychological History: Anxiety, Bipolar, Depression, Panic Disorder, Schizoaffective Disorder, Schizophrenia Smoking Status: Current every day smoker Past Alcohol Use History: Rare Past Drug Use History: None Reported - Past Family History Father Family Medical History: Hypertension, Myocardial Infarction (RI) Additional Family Medical History / Comment(s): Pt reports his father of an RI at the age of 48. Mother History Unknown: Yes Family Medical History: Cancer Additional Family Medical History / Comment(s): Recently diagnosed with breast cancer. General Exam Limitations: no limitations General appearance: alert, in no apparent distress Head exam: Present: atraumatic, normocephalic, normal inspection Eye exam: Present: normal appearance, PERRL, EOMI. Absent: scleral icterus, conjunctival injection, periorbital swelling ENT exam: Present: normal exam, normal oropharynx, mucous membranes moist Neck exam: Present: normal inspection. Absent: tenderness, meningismus, lymphadenopathy Respiratory exam: Present: normal lung sounds bilaterally. Absent: respiratory distress, wheezes, rales, rhonchi, stridor Cardiovascular Exam: Present: regular rate, normal rhythm, normal heart sounds. Absent: systolic murmur, diastolic murmur, rubs, gallop, clicks Course Vital Signs 11/17/20 18:05 Temperature 98 F Pulse Rate 75 Respiratory 18 Rate Blood Pressure 103/60 O2 Sat by Pulse 99 Oximetry Medical Decision Making - Medical Decision Making Patient has acute laryngitis we discharged stable condition. Disposition Clinical Impression: Laryngitis Disposition: HOME SELF-CARE Condition: Stable Instructions (If sedation given, give patient instructions): Laryngitis (ED) Additional Instructions: Please return to the Emergency Department if symptoms worsen or any other concerns. Prescriptions: predniSONE 50 mg PO DAILY #5 tab Is patient prescribed a controlled substance at d/c from ED?: No Referrals: Michael Ruffin MD [Primary Care Provider] - 1-2 days Time of Disposition: 19:20
== END 2020-11-17 19:28 | disposition home or self-care (01) ==
LOC: EC 17:26
DX: J04.0 Acute laryngitis (principal); I10 Essential (primary) hypertension; F17.200 Nicotine dependence, unspecified, uncomplicated; Z88.8 Allergy status to other drugs, medicaments and biological substances; Z91.09 Other allergy status, other than to drugs and biological substances
CPT/HCPCS: 99283

== ENCOUNTER 2020-12-04 16:54 | Emergency (ER) | payer MEDICARE ==
[2020-12-04 17:09] VITALS: TEMP 98.7
[2020-12-04] MEDS ORDERED: predniSONE 50 MG TAB PO STA (19:49)
[2020-12-04] MEDS ORDERED: IPRATROPIUM-ALBUTEROL 3 ML NEB INHALATION STA (19:49)
--- NOTE | 2020-12-04 19:51 | ED ---
General Adult HPI - General Chief complaint: Fever Stated complaint: Fever Time Seen by Provider: 12/04/20 19:33 Source: patient, RN notes reviewed Mode of arrival: ambulatory Limitations: no limitations - History of Present Illness Initial comments: 35-year-old male with a past medical history of hypertension, pneumonia, seizure disorder presents to the emergency room for a chief complaint of not feeling well. Patient states yesterday he started to get sick. States he has had a cough and congestion. Patient states he had a fever of 101 yesterday. Patient states he has had pneumonia in the past and this could be a pneumonia or influenza. Patient states he wanted to stay home but his work is making him get a work note.Patient has no other complaints at this time including shortness of breath, chest pain, abdominal pain, nausea or vomiting, headache, or visual changes. - Related Data Previous Rx's Medication Instructions Recorded predniSONE 50 mg PO DAILY #5 tab 11/17/20 Benzonatate [Tessalon Perles] 200 mg PO Q8H PRN #15 cap 12/04/20 guaiFENesin [Mucinex] 600 mg PO Q12HR PRN #20 tab 12/04/20 Allergies Allergy/AdvReac Type Severity Reaction Status Date / Time wool Allergy Rash/Hives Verified 12/04/20 17:09 methylphenidate HCl AdvReac Nausea & Verified 12/04/20 17:09 [From Ritalin] Vomiting olanzapine [From Zyprexa] AdvReac Nausea & Verified 12/04/20 17:09 Vomiting Review of Systems ROS Statement: Those systems with pertinent positive or pertinent negative responses have been documented in the HPI. ROS Other: All systems not noted in ROS Statement are negative. Past Medical History Past Medical History: Hypertension, Osteoarthritis (OA), Pneumonia, Seizure Disorder, Sleep Apnea/CPAP/BIPAP Additional Past Medical History / Comment(s): Other HX: Last seizure 03/12/15, DJD, arthritis in right pelvic bone and R knee, TRACI (unable to tolerate CPAP), insomnia. History of Any Multi-Drug Resistant Organisms: None Reported Past Surgical History: Appendectomy Additional Past Surgical History / Comment(s): 09/2014 Lap appy Past Anesthesia/Blood Transfusion Reactions: No Reported Reaction Past Psychological History: Anxiety, Bipolar, Depression, Panic Disorder, Schi zoaffective Disorder, Schizophrenia Smoking Status: Current every day smoker Past Alcohol Use History: Rare Past Drug Use History: Marijuana - Past Family History Father Family Medical History: Hypertension, Myocardial Infarction ([place]) Additional Family Medical History / Comment(s): Pt reports his father of an [place] at the age of 48. Mother History Unknown: Yes Family Medical History: Cancer Additional Family Medical History / Comment(s): Recently diagnosed with breast cancer. General Exam Limitations: no limitations General appearance: alert, in no apparent distress Head exam: Present: atraumatic Eye exam: Present: normal appearance, PERRL, EOMI. Absent: scleral icterus, conjunctival injection ENT exam: Present: normal exam, normal oropharynx, mucous membranes moist, normal external ear exam Neck exam: Present: normal inspection, full ROM. Absent: tenderness Respiratory exam: Present: wheezes. Absent: respiratory distress, accessory muscle use Cardiovascular Exam: Present: regular rate, normal rhythm, normal heart sounds GI/Abdominal exam: Present: soft, normal bowel sounds. Absent: distended, tenderness Course Vital Signs 12/04/20 12/04/20 12/04/20 17:07 20:11 20:28 Temperature 98.7 F Pulse Rate 81 81 81 Respiratory 18 Rate Blood Pressure 111/80 O2 Sat by Pulse 97 Oximetry 12/04/20 20:50 Temperature Pulse Rate Respiratory 20 Rate Blood Pressure O2 Sat by Pulse Oximetry Medical Decision Making - Medical Decision Making Vitals are stable. Patient is well-appearing. Negative coronavirus, RSV and flu. Chest x-ray shows a normal chest no change. Patient likely has viral upper thoracic or infection. Patient will be discharged home with symptomatic medicine. Will follow-up with his doctor. Will return for any worsening s ymptoms - Lab Data Lab Results 12/04/20 Range/Units 20:04 Influenza Type A (PCR) Not Detected (Not Detectd) Influenza Type B (PCR) Not Detected (Not Detectd) RSV (PCR) Not Detected (Not Detectd) SARS-CoV-2 (PCR) Not Detected (Not Detectd) Disposition Clinical Impression: Cough Disposition: HOME SELF-CARE Condition: Good Instructions (If sedation given, give patient instructions): Acute Cough (ED) Additional Instructions: Take medications as directed. Follow-up with your doctor in one to 2 days. Return to the emergency room for any worsening symptoms. Prescriptions: guaiFENesin [Mucinex] 600 mg PO Q12HR PRN #20 tab PRN Reason: Congestion Benzonatate [Tessalon Perles] 200 mg PO Q8H PRN #15 cap PRN Reason: Cough Is patient prescribed a controlled substance at d/c from ED?: No Referrals: Michael Ruffin MD [Primary Care Provider] - 1-2 days Time of Disposition: 22:18
--- NOTE | 2020-12-04 20:18 | XR ---
EXAMINATION TYPE: XR chest 2V DATE OF EXAM: 12/04/2020 COMPARISON: 07/06/2019 HISTORY: Cough TECHNIQUE: 2 views FINDINGS: Heart and mediastinum are normal. Lungs are clear of infiltrate. There is no heart failure. There are no hilar masses. Bony thorax is intact IMPRESSION: Normal chest. No change.
[2020-12-04 22:36] VITALS: BP 115/87; PULSE 87; RESP 18
== END 2020-12-04 22:36 | disposition home or self-care (01) ==
LOC: EC 16:54
DX: R05 Cough (principal); R50.9 Fever, unspecified; R09.89 Other specified symptoms and signs involving the circulatory and respiratory systems; F17.200 Nicotine dependence, unspecified, uncomplicated; I10 Essential (primary) hypertension; Z91.09 Other allergy status, other than to drugs and biological substances; Z88.8 Allergy status to other drugs, medicaments and biological substances
CPT/HCPCS: 94640; 87636; 71046; 99283; J7512

== ENCOUNTER 2021-08-03 08:35 | Emergency (ER) | payer MEDICARE ==
[2021-08-03 08:55] VITALS: TEMP 98.2
[2021-08-03 17:10] VITALS: BP 146/77; PULSE 88; RESP 18
[2021-08-03 17:52] LABS: ALT 15 U/L (4-49); AST 21 U/L (17-59); African American GFR (CKD) >90 (>60 ml/min/1.73 sqM); Albumin 4.2 g/dL (3.5-5.0); Alkaline Phosphatase 86 U/L (38-126); Amylase 59 U/L (30-110); Anion Gap 7 mmol/L; Blood Urea Nitrogen 10 mg/dL (9-20); Calcium 9.2 mg/dL (8.4-10.2); Carbon Dioxide 29 mmol/L (22-30); Chloride 103 mmol/L (98-107); GGT 16 U/L (15-73); Glucose 82 mg/dL (74-99); Lipase 66 U/L (23-300); Magnesium 1.9 mg/dL (1.6-2.3); Non-African American GFR(CKD) >90 (>60 ml/min/1.73 sqM); Potassium 4.8 mmol/L (3.5-5.1); Sodium 139 mmol/L (137-145); Total Bilirubin 0.3 mg/dL (0.2-1.3); Total Protein 6.9 g/dL (6.3-8.2)
[2021-08-03 17:56] LABS: Basophils # (A) 0.1 k/uL (0-0.2); Basophils % (A) 1 %; Eosinophils # (A) 0.4 k/uL (0-0.7); Eosinophils % (A) 4 %; HCT 46.6 % (39.0-53.0); HGB 15.5 gm/dL (13.0-17.5); Lymphocytes # (A) 2.5 k/uL (1.0-4.8); Lymphocytes % (A) 23 %; MCH 30.7 pg (25.0-35.0); MCHC 33.3 g/dL (31.0-37.0); MCV 92.2 fL (80.0-100.0); Mean Platelet Volume 7.7; Monocytes # (A) 0.5 k/uL (0-1.0); Monocytes % (A) 5 %; Neutrophils # (A) 7.5 k/uL (1.3-7.7); Neutrophils % (A) 67 %; Platelet Count 363 k/uL (150-450); RBC 5.05 m/uL (4.30-5.90); RDW 13.6 % (11.5-15.5); WBC 11.1 k/uL (3.8-10.6)
[2021-08-03 17:59] LABS: INR 0.9 (<1.2); Partial Thromboplastin Time 27.9 sec (22.0-30.0); Prothrombin Time 10.4 sec (9.0-12.0)
--- NOTE | 2021-08-03 18:05 | US ---
EXAMINATION TYPE: US kidneys/renal and bladder DATE OF EXAM: 08/03/21 COMPARISON: CT CLINICAL HISTORY: Left flank pain. Hx appendectomy. EXAM MEASUREMENTS: Right Kidney: 12.0 x 5.4 x 4.9 cm. Left Kidney: 11.4 x 5.3 x 5.8 Right Kidney: No hydronephrosis or masses seen. Measures upper limits of normal. Left Kidney: No hydronephrosis or masses seen. Slightly limited due to gas. Bladder: Appears anechoic Bilateral Jets seen: yes IMPRESSION: 1. Unremarkable renal ultrasound.
[2021-08-03 18:29] LABS: Appearance,Urine Clear (Clear); Bilirubin,Urine Negative (Negative); Blood,Urine Negative (Negative); Color,Urine Yellow; Glucose,Urine (UA) Negative (Negative); Ketones,Urine Negative (Negative); Leukocyte Esterase,Urine Small (Negative); Mucus,Urine Rare /hpf; Nitrite,Urine Negative (Negative); Protein,Urine Negative (Negative); RBC,Urine <1 /hpf (0-5); Specific Gravity,Urine 1.009 (1.001-1.035); Squamous Epithelial Cell,Urine <1 /hpf (0-4); Urobilinogen,Urine <2.0 mg/dL (<2.0); WBC,Urine 4 /hpf (0-5)
== END 2021-08-03 17:08 | disposition home or self-care (01) ==
LOC: EC 08:35
DX: R10.32 Left lower quadrant pain (principal); Z88.8 Allergy status to other drugs, medicaments and biological substances; Z91.09 Other allergy status, other than to drugs and biological substances; F17.200 Nicotine dependence, unspecified, uncomplicated
CPT/HCPCS: 36415; 76770; 80053; 81001; 82150; 82977; 83690; 83735; 85025; 85610; 85730; 99284

== ENCOUNTER 2021-08-17 16:16 | Emergency (ER) | payer MEDICARE ==
[2021-08-17 17:10] VITALS: BP 143/96; PULSE 80; RESP 16; TEMP 98.2
--- NOTE | 2021-08-17 19:32 | ED ---
URI HPI - General Chief Complaint: Upper Respiratory Infection Stated Complaint: fever, tired Time Seen by Provider: 08/17/21 19:31 Source: patient, RN notes reviewed Mode of arrival: ambulatory Limitations: no limitations - History of Present Illness Initial Comments: Patient presents with 3 days of nasal congestion, mild cough, runny nose. Patient requesting COVID-19 testing. Patient denies any chest pain or shortness of breath. No nausea or vomiting. No chills. Did have a low-grade fever 2 days ago. Patient has no significant past medical history. Nonsmoker. No headache, no changes in vision or hearing, no sore throat or difficulty with speech, no neck pain, no chest pain or shortness of breath, no abdominal pain, no nausea or vomiting, no changes in urination or bowel movements, no numbness or tingling, no extremity pain, no skin rashes or lesions. MD Complaint: cough, rhinorrhea, nasal congestion - Related Data Home Medications Medication Instructions Recorded Confirmed No Known Home Medications 08/03/21 08/03/21 Allergies Allergy/AdvReac Type Severity Reaction Status Date / Time quetiapine [From Seroquel] Allergy Unknown Verified 08/17/21 17:10 wool Allergy Rash/Hives Verified 08/17/21 17:10 methylphenidate HCl AdvReac Nausea & Verified 08/17/21 17:10 [From Ritalin] Vomiting olanzapine [From Zyprexa] AdvReac Nausea & Verified 08/17/21 17:10 Vomiting Review of Systems ROS Statement: Those systems with pertinent positive or pertinent negative responses have been documented in the HPI. ROS Other: All systems not noted in ROS Statement are negative. Past Medical History Past Medical History: Hypertension, Osteoarthritis (OA), Pneumonia, Seizure Disorder, Sleep Apnea/CPAP/BIPAP Additional Past Medical History / Comment(s): Other HX: Last seizure 03/12/15, DJD, arthritis in right pelvic bone and R knee, TRACI (unable to tolerate CPAP), insomnia. History of Any Multi-Drug Resistant Organisms: None Reported Past Surgical History: Appendectomy Additional Past Surgical History / Comment(s): 09/2014 Lap appy Past Anesthesia/Blood Transfusion Reactions: No Reported Reaction Past Psychological History: Anxiety, Bipolar, Depression, Panic Disorder, Schizoaffective Disorder, Schizophrenia Smoking Status: Current every day smoker Past Alcohol Use History: Rare Past Drug Use History: Marijuana - Past Family History Father Family Medical History: Hypertension, Myocardial Infarction ([place]) Additional Family Medical History / Comment(s): Pt reports his father of an [place] at the age of 48. Mother History Unknown: Yes Family Medical History: Cancer Additional Family Medical History / Comment(s): Recently diagnosed with breast cancer. General Exam - General Exam Comments Initial Comments: Nontoxic-appearing 36-year-old male in no acute distress. Limitations: no limitations General appearance: alert, in no apparent distress Head exam: Present: atraumatic, normocephalic, normal inspection Eye exam: Present: normal appearance, PERRL, EOMI. Absent: scleral icterus, conjunctival injection, periorbital swelling ENT exam: Present: normal exam, normal oropharynx, mucous membranes dry, mucous membranes moist, TM's normal bilaterally. Absent: normal external ear exam Neck exam: Present: normal inspection, full ROM. Absent: tenderness, meningismus, lymphadenopathy Respiratory exam: Present: normal lung sounds bilaterally. Absent: respiratory distress, wheezes, rales, rhonchi, stridor Cardiovascular Exam: Present: regular rate, normal rhythm, normal heart sounds. Absent: systolic murmur, diastolic murmur, rubs, gallop, clicks GI/Abdominal exam: Present: soft, normal bowel sounds. Absent: distended, tenderness, guarding, rebound, rigid Extremities exam: Present: normal inspection, full ROM, normal capillary refill. Absent: tenderness, pedal edema, joint swelling, calf tenderness Back exam: Present: normal inspection Neurological exam: Present: alert, oriented X3, CN II-XII intact Psychiatric exam: Present: normal affect, normal mood Skin exam: Present: warm, dry, intact, normal color. Absent: rash Course Vital Signs 08/17/21 17:08 Temperature 98.2 F Pulse Rate 80 Respiratory 16 Rate Blood Pressure 143/96 O2 Sat by Pulse 98 Oximetry Medical Decision Making - Medical Decision Making requesting COVID-19 testing only. Patient denying any other significant symptomology other than a stuffy nose. No fever or chills. No significant past medical history. Discussed conservative therapy for COVID-19 in detail with the patient. Patient voiced understanding. Patient in no distress. We'll treat conservatively with gthv-vrl-oizwaww medication, work restrictions, quarantine measures. Patient was told to return to the ER for any signs or symptoms worsen. Told to return immediately if any other problems arise. All questions answered. Treatment plan discussed. Patient in agreement Every effort has been made to ensure accuracy of this dictation. However, due to the limitations of electronic medical records and dictation devices, errors in charting still occur. Glass Polisher, Dr. Medina - Lab Data Lab Results 08/17/21 08/17/21 Range/Units 17:12 17:12 Coronavirus (PCR) Detected A (Not Detectd) Influenza Type A RNA Not Detected (Not Detectd) Influenza Type B (PCR) Not Detected (Not Detectd) Disposition Clinical Impression: COVID-19 Disposition: HOME SELF-CARE Condition: Good Instructions (If sedation given, give patient instructions): COVID-19 (Coronavirus Disease 2019) (ED) Additional Instructions: SELF QUARANTINE DISCHARGE: As you are at risk for symptoms due to coronavirus, please stay home and stay away from others as much as possible. Please maintain social distance of 6 feet if possible. You should not return to work until at least 3 days (72 hours) have passed since recovery of symptoms. This defined as resolution of fever without the use of fever reducing medicines and improvement in respiratory symptoms (e.g,, cough, shortness of breath) Isolation can end at least 5 days after symptom onset and after fever ends for 24 hours (without the use of fever-reducing medication) and symptoms are improving, if these people can continue to properly wear a well-fitted mask around others for 5 more days after the 5-day isolation period. If you're still having symptoms at the end of 5 day period, isolate for an additional 5 days. More information about what to do if you are sick can be found on the CDC website at https://www.cdc.gov/coronavirus/2019-ncov/is-tkv-yfe-sick/ihpgg-nwqq-mwic.html Expect the symptoms to last for 7-14 days from onset. Use acetaminophen (Tylenol) as needed for discomfort. You can take a maximum of 1 gram every 6 hours for discomfort, with your total dose in 24 hours not exceeding 4 grams. Be sure to maintain hydration. Drink continuous water and/or items high in vitamin C, such as orange juice and/or lemonade. Unless you have high blood pressure, you may consider Sudafed (which is over-t he-counter) for nasal congestion. I would suggest that a short acting Sudafed rather than the 24 hour Sudafed. For a cough you may take Mucinex or Robitussin. Also consider the use of Vicks Vapor Rub or your chest when you sleep. Use a humidifier that is cleaned frequently, in the bedroom at night. For Nausea /Vomiting/Diarrhea associated with your Illness: o Small frequent sips of room temperature liquids. o Diet: [employer] - If you are still experiencing discomfort and/or nausea please slowly advancing your diet using the BRAT Diet = bananas, rice, apples/apple sauce, toast. o With diarrhea avoid any dairy for 48 hours after symptoms resolved. o Continue with activity as tolerated. If your symptoms do get worse and you believe that the upper respiratory in fection has developed into something else, such as pneumonia or severe dehydration, please return to the emergency department or follow-up with your primary care. But expect to be symptomatic for the days as indicated above Is patient prescribed a controlled substance at d/c from ED?: No Referrals: Michael Ruffin MD [Primary Care Provider] - 08/24/21 Time of Disposition: 19:31
== END 2021-08-17 19:39 | disposition home or self-care (01) ==
LOC: EC 16:16
DX: U07.1 COVID-19 (principal); F17.200 Nicotine dependence, unspecified, uncomplicated; I10 Essential (primary) hypertension; Z88.8 Allergy status to other drugs, medicaments and biological substances; Z91.09 Other allergy status, other than to drugs and biological substances
CPT/HCPCS: 87502; 87635; 99283

== ENCOUNTER 2021-09-12 15:45 | Emergency (ER) | payer MEDICARE, OTHER ==
[2021-09-12 16:07] VITALS: RESP 18; TEMP 97.6
[2021-09-12] MEDS ORDERED: HYDROcodone/APAP 5-325MG 1 EACH TAB PO STA (16:09)
--- NOTE | 2021-09-12 16:42 | XR ---
EXAMINATION TYPE: XR knee limited LT DATE OF EXAM: 09/12/2021 COMPARISON: NONE HISTORY: Pain TECHNIQUE: 2 views FINDINGS: There is no sign of fracture nor dislocation. Joint spaces are normal. No sign of knee join t effusion. There are no pathologic calcifications. IMPRESSION: Negative left knee exam. No fracture.
--- NOTE | 2021-09-12 16:43 | XR ---
EXAMINATION TYPE: XR ankle complete LT DATE OF EXAM: 09/12/2021 COMPARISON: NONE HISTORY: Ankle pain TECHNIQUE: 3 views FINDINGS: I see no fracture nor dislocation. Joint spaces are normal. There is minimal calcaneal spur ring. IMPRESSION: Negative left ankle exam. No fracture.
--- NOTE | 2021-09-12 17:17 | ED ---
Lower Extremity Injury HPI - General Chief Complaint: Extremity Injury, Lower Stated Complaint: fall, ankle injury Time Seen by Provider: 09/12/21 16:08 Source: patient Mode of arrival: ambulatory Limitations: no limitations - History of Present Illness Initial Comments: Patient took a fall down a couple of steps and injured his left leg. He did not hit his head. He did not lose conscious. He has no neck injury. He has no belly or back pain. He has no chest pain. He has no swelling in the legs. He has no paresthesias. He has no weakness. - Related Data Home Medications Medication Instructions Recorded Confirmed No Known Home Medications 08/03/21 08/03/21 Allergies Allergy/AdvReac Type Severity Reaction Status Date / Time quetiapine [From Seroquel] Allergy Unknown Verified 09/12/21 16:07 wool Allergy Rash/Hives Verified 09/12/21 16:07 methylphenidate HCl AdvReac Nausea & Verified 09/12/21 16:07 [From Ritalin] Vomiting olanzapine [From Zyprexa] AdvReac Nausea & Verified 09/12/21 16:07 Vomiting Review of Systems ROS Statement: Those systems with pertinent positive or pertinent negative responses have been documented in the HPI. ROS Other: All systems not noted in ROS Statement are negative. Past Medical History Past Medical History: Hypertension, Osteoarthritis (OA), Pneumonia, Seizure Disorder, Sleep Apnea/CPAP/BIPAP Additional Past Medical History / Comment(s): Other HX: Last seizure 03/12/15, DJD, arthritis in right pelvic bone and R knee, TRACI (unable to tolerate CPAP), insomnia. History of Any Multi-Drug Resistant Organisms: None Reported Past Surgical History: Appendectomy Additional Past Surgical History / Comment(s): 09/2014 Lap appy Past Anesthesia/Blood Transfusion Reactions: No Reported Reaction Past Psychological History: Anxiety, Bipolar, Depression, Panic Disorder, Schizoaffective Disorder, Schizophrenia Smoking Status: Current every day smoker Past Alcohol Use History: Rare Past Drug Use History: Marijuana - Past Family History Father Family Medical History: Hypertension, Myocardial Infarction ([place]) Additional Family Medical History / Comment(s): Pt reports his father of an [place] at the age of 48. Mother History Unknown: Yes Family Medical History: Cancer Additional Family Medical History / Comment(s): Recently diagnosed with breast cancer. General Exam Limitations: no limitations Head exam: Present: atraumatic Eye exam: Present: normal appearance Cardiovascular Exam: Present: other (normal peripheral pulses) Extremities exam: Present: normal inspection, full ROM, tenderness, normal capillary refill. Absent: pedal edema Neurological exam: Present: alert, oriented X3 Psychiatric exam: Present: normal affect Skin exam: Present: warm, dry, intact Course Vital Signs 09/12/21 16:01 Temperature 97.6 F Pulse Rate 90 Respiratory 18 Rate Blood Pressure 125/58 O2 Sat by Pulse 97 Oximetry Medical Decision Making - Medical Decision Making Patient presents with injuries to the left leg after fall. His imaging is all negative. He is neurovascularly intact. He is stable for discharge. Disposition Clinical Impression: Ankle sprain Disposition: HOME SELF-CARE Condition: Good Instructions (If sedation given, give patient instructions): Ankle Sprain (ED) Is patient prescribed a controlled substance at d/c from ED?: No Referrals: Michael Ruffin MD [Primary Care Provider] - 1-2 days
[2021-09-12 17:28] VITALS: BP 122/76; PULSE 75
== END 2021-09-12 17:28 | disposition home or self-care (01) ==
LOC: EC 15:45
DX: S93.402A Sprain of unspecified ligament of left ankle, initial encounter (principal); I10 Essential (primary) hypertension; M19.90 Unspecified osteoarthritis, unspecified site; F41.9 Anxiety disorder, unspecified; F31.9 Bipolar disorder, unspecified; F17.200 Nicotine dependence, unspecified, uncomplicated; F12.90 Cannabis use, unspecified, uncomplicated; Z88.8 Allergy status to other drugs, medicaments and biological substances; Z91.048 Other nonmedicinal substance allergy status
CPT/HCPCS: 99284

== ENCOUNTER 2021-10-13 10:08 | Emergency (ER) | payer MEDICARE ==
[2021-10-13 10:20] VITALS: TEMP 98.8
[2021-10-13] MEDS ORDERED: KETOROLAC 15 MG/ML 1 ML VIAL IM STA (10:31)
--- NOTE | 2021-10-13 10:39 | ED ---
Extremity Problem HPI - General Chief complaint: Extremity Problem,Nontraumatic Stated complaint: rt elbow pain Time Seen by Provider: 10/13/21 10:28 Source: patient, RN notes reviewed, old records reviewed Mode of arrival: ambulatory Limitations: no limitations - History of Present Illness Initial comments: Well-appearing 36-year-old male presents emergency room with 3 days of right elbow pain. Patient states that the pain shoots down into his hand and he does have tenderness to his bicep. States that pain has been progressively getting worse and he is having difficulty fully extending the arm. He states that he is on disability and does not work and no repetitive movements. He denies any fevers. Denies any injury. He has no medical history does not take any medicines on a daily basis. MD Complaint: extremity pain, joint swelling (right elbow) -: days(s) (3) Location: right, upper extremity, elbow Severity scale (1-10): 8 Quality: constant Consistency: constant Improves with: immobilization Worsens with: other (movement) Associated Symptoms: denies other symptoms - Related Data Previous Rx's Medication Instructions Recorded Ibuprofen [Motrin] 800 mg PO Q6HR #30 tab 10/13/21 Allergies Allergy/AdvReac Type Severity Reaction Status Date / Time quetiapine [From Seroquel] Allergy Unknown Verified 10/13/21 10:19 wool Allergy Rash/Hives Verified 10/13/21 10:19 methylphenidate HCl AdvReac Nausea & Verified 10/13/21 10:19 [From Ritalin] Vomiting olanzapine [From Zyprexa] AdvReac Nausea & Verified 10/13/21 10:19 Vomiting Review of Systems ROS Statement: Those systems with pertinent positive or pertinent negative responses have been documented in the HPI. ROS Other: All systems not noted in ROS Statement are negative. Past Medical History Past Medical History: Hypertension, Osteoarthritis (OA), Pneumonia, Seizure Disorder, Sleep Apnea/CPAP/BIPAP Additional Past Medical History / Comment(s): Other HX: Last seizure 03/12/15, DJD, arthritis in right pelvic bone and R knee, TRACI (unable to tolerate CPAP), insomnia. History of Any Multi-Drug Resistant Organisms: None Reported Past Surgical History: Appendectomy Additional Past Surgical History / Comment(s): 09/2014 Ajay appsid Past Anesthesia/Blood Transfusion Reactions: No Reported Reaction Past Psychological History: Anxiety, Bipolar, Depression, Panic Disorder, Schizoaffective Disorder, Schizophrenia Smoking Status: Current every day smoker Past Alcohol Use History: Rare Past Drug Use History: Marijuana - Past Family History Father Family Medical History: Hypertension, Myocardial Infarction ([place]) Additional Family Medical History / Comment(s): Pt reports his father of an [place] at the age of 48. Mother History Unknown: Yes Family Medical History: Cancer Additional Family Medical History / Comment(s): Recently diagnosed with breast cancer. General Exam Limitations: no limitations General appearance: alert, in no apparent distress Head exam: Present: atraumatic Respiratory exam: Present: normal lung sounds bilaterally. Absent: respiratory distress, accessory muscle use Cardiovascular Exam: Present: regular rate, normal rhythm Right Elbow exam: Present: tenderness, pain w/ pronation/supination, other (pain along medial epicondyle and distal bicep tendon). Absent: full ROM, laceration, ecchymosis, deformity, erythema, effusion Forearm Wrist exam: Absent: tenderness, swelling, erythema Hand Wrist exam: Present: full ROM. Absent: swelling Neurosensory exam: Present: radial nerve intact, ulnar nerve intact, median nerve intact Vascular: Present: normal capillary refill, radial pulse. Absent: vascular compromise Neurological exam: Present: alert, oriented X3 Psychiatric exam: Present: normal affect, normal mood Skin exam: Present: warm, dry, normal color. Absent: cyanosis, diaphoretic, petechiae, pallor Course Vital Signs 10/13/21 10/13/21 10:18 12:14 Temperature 98.8 F Pulse Rate 72 78 Respiratory 20 18 Rate Blood Pressure 120/86 132/74 O2 Sat by Pulse 97 99 Oximetry Medical Decision Making - Medical Decision Making Patient presents with right elbow pain for 3 days, denies trauma, denies any repetitive movements. X-ray shows no abnormalities of the right elbow. There is a small ossific density at the level of the insertion of the triceps tendon not felt to be acute. On physical exam patient's biceps tendon is intact. He is able to fully extend the arm with some distraction. There is no leukocytosis and CRP is negative. This is likely a tendinitis patient will be directed to follow up with his primary care doctor next week. He will be prescribed Motrin for pain. - Lab Data Result diagrams: 10/13/21 10:41 Lab Results 10/13/21 10/13/21 Range/Units 10:41 10:41 WBC 11.7 H (3.8-10.6) k/uL RBC 5.22 (4.30-5.90) m/uL Hgb 16.2 (13.0-17.5) gm/dL Hct 48.6 (39.0-53.0) % MCV 93.1 (80.0-100.0) fL MCH 31.0 (25.0-35.0) pg MCHC 33.3 (31.0-37.0) g/dL RDW 14.1 (11.5-15.5) % Plt Count 341 (150-450) k/uL MPV 7.5 Neutrophils % 65 % Lymphocytes % 23 % Monocytes % 5 % Eosinophils % 4 % Basophils % 1 % Neutrophils # 7.6 (1.3-7.7) k/uL Lymphocytes # 2.7 (1.0-4.8) k/uL Monocytes # 0.6 (0-1.0) k/uL Eosinophils # 0.5 (0-0.7) k/uL Basophils # 0.1 (0-0.2) k/uL ESR 2 (0-15) mm/hr C-Reactive Protein <0.5 (<1.0) mg/dL Disposition Clinical Impression: Biceps tendinitis on right Disposition: HOME SELF-CARE Condition: Good Instructions (If sedation given, give patient instructions): Tendinitis (ED) Additional Instructions: Take Motrin as prescribed every 8 hours. Follow-up with the primary care doctor next week. Return to the emergency room with any new or concerning symptoms. Prescriptions: Ibuprofen [Motrin] 800 mg PO Q6HR #30 tab Is patient prescribed a controlled substance at d/c from ED?: No Referrals: Michael Ruffin MD [Primary Care Provider] - 1-2 days Time of Disposition: 11:48
[2021-10-13 10:59] LABS: Basophils # (A) 0.1 k/uL (0-0.2); Basophils % (A) 1 %; Eosinophils # (A) 0.5 k/uL (0-0.7); Eosinophils % (A) 4 %; HCT 48.6 % (39.0-53.0); HGB 16.2 gm/dL (13.0-17.5); Lymphocytes # (A) 2.7 k/uL (1.0-4.8); Lymphocytes % (A) 23 %; MCHC 33.3 g/dL (31.0-37.0); MCV 93.1 fL (80.0-100.0); Mean Platelet Volume 7.5; Monocytes # (A) 0.6 k/uL (0-1.0); Monocytes % (A) 5 %; Neutrophils # (A) 7.6 k/uL (1.3-7.7); Neutrophils % (A) 65 %; Platelet Count 341 k/uL (150-450); RBC 5.22 m/uL (4.30-5.90); RDW 14.1 % (11.5-15.5); WBC 11.7 k/uL (3.8-10.6)
--- NOTE | 2021-10-13 11:11 | XR ---
Right elbow HISTORY: Pain 3 views the right elbow Bone mineralization, joint spaces and alignment are maintained. No evident fracture or dislocation. T here is no joint effusion. Small ossific density at the level of insertion of the triceps tendon is w ell-corticated and not felt likely to be acute, possibly related to remote trauma, loose body. Questi on some cortical irregularity of the distal humerus, correlate for any remote history of trauma. IMPRESSION: No acute abnormalities evident. Elbow MRI may be of benefit. Correlate for history of tra deonte as described.
[2021-10-13 11:59] LABS: Erythrocyte Sedimentation Rate 2 mm/hr (0-15)
[2021-10-13 12:15] VITALS: BP 132/74; PULSE 78; RESP 18
== END 2021-10-13 12:15 | disposition home or self-care (01) ==
LOC: EC 10:08
DX: M75.21 Bicipital tendinitis, right shoulder (principal); I10 Essential (primary) hypertension; F17.200 Nicotine dependence, unspecified, uncomplicated; Z82.49 Family history of ischemic heart disease and other diseases of the circulatory system; Z91.018 Allergy to other foods; Z88.8 Allergy status to other drugs, medicaments and biological substances
CPT/HCPCS: 36415; 85652; 85025; 86140; 73080; 99283; 96372; J1885

== ENCOUNTER 2022-02-11 20:39 | Emergency (ER) | payer MEDICARE ==
[2022-02-11 22:08] VITALS: BP 139/84; PULSE 99; RESP 20; TEMP 98.5
--- NOTE | 2022-02-11 22:19 | XR ---
EXAMINATION TYPE: XR chest 2V DATE OF EXAM: 02/11/2022 COMPARISON: 12/04/2020 HISTORY: Chest pain TECHNIQUE: 2 views FINDINGS: Heart and mediastinum are normal. Lungs are clear. Diaphragm is normal. Bony thorax is inta ct. IMPRESSION: Normal chest. No change.
== END 2022-02-12 00:36 | disposition left against medical advice (07) ==
LOC: EC 20:39
DX: Z53.21 Procedure and treatment not carried out due to patient leaving prior to being seen by health care provider (principal)
CPT/HCPCS: 71046; 87636; 99499

== ENCOUNTER 2022-02-12 15:24 | Emergency (ER) | payer MEDICARE ==
[2022-02-12 15:53] VITALS: TEMP 98.7
--- NOTE | 2022-02-12 16:26 | XR ---
EXAMINATION TYPE: XR chest 2V DATE OF EXAM: 02/12/2022 4:11 PM COMPARISON: Chest radiographs from 02/11/2022 TECHNIQUE: XR chest 2V Frontal and lateral views of the chest. CLINICAL INDICATION:Male, 36 years old with history of cough; FINDINGS: Lungs/Pleura: There is no evidence of pleural effusion, focal consolidation, or pneumothorax. Pulmonary vascularity: Unremarkable. Heart/mediastinum: Cardiomediastinal silhouette is unremarkable. Musculoskeletal: No acute osseous pathology. IMPRESSION: No acute cardiopulmonary disease/process.
[2022-02-12 18:47] VITALS: BP 113/71; PULSE 72
--- NOTE | 2022-02-12 18:57 | ED ---
General Adult HPI - General Chief complaint: Upper Respiratory Infection Stated complaint: Cough, tingiling in Arms Time Seen by Provider: 02/12/22 18:27 Source: patient Mode of arrival: ambulatory Limitations: no limitations - History of Present Illness Initial comments: Dictation was produced using [employer] dictation software. please excuse any gra mmatical, word or spelling errors. Chief Complaint: 36-year-old male in comorbid disease presents with cough and congestion for 2 days History of Present Illness: Patient is a 36-year-old male presents emergency department for cough and congestion for the last 2 days. Patient states that he cannot be was at work who have been showing signs of cold and flu. Does complain of body aches and sore throat. Denies any fever, chills or night sweats. His cough is productive for yellow sputum. The ROS documented in this emergency department record has been reviewed and confirmed by me. Those systems with pertinent positive or negative responses have been documented in the HPI. All other systems are other negative and/or noncontributory. PHYSICAL EXAM: General Impression: Alert and oriented x3, not in acute distress HEENT: Normocephalic atraumatic, extra-ocular movements intact, pupils equal and reactive to light bilaterally, mucous membranes moist. Cardiovascular: Heart regular rate and rhythm Chest: Able to complete full sentences, no retractions, no tachypnea, diffuse end expiratory wheezing that is mild Abdomen: abdomen soft, non-tender, non-distended, no organomegaly Musculoskeletal: Pulses present and equal in all extremities, no peripheral edema Motor: no focal deficits noted Neurological: CN II-XII grossly intact, no focal motor or sensory deficits noted Skin: Intact with no visualized rashes Psych: Normal affect and mood ED course: 28-year-old male presents emergency department for cough congestion 2 days. Vital signs upon arrival shows pulse rate of 40, 94% on room air. Repeat vital shows heart rate of 72 rest vital signs within expected limits. 4 panel are PCR is positive for RSV. Chest x-ray is nonacute. Patient having symptoms of acute bronchitis/bronchiolitis. Patient given prescription for inhaler. He is also given prescription for Zithromax to take in a [id number] pattern. Otherwise patient is stable for discharge. Nursing notes and chart review was performed Critical Care: no Critical Care time: n/a - Related Data Previous Rx's Medication Instructions Recorded Ibuprofen [Motrin] 800 mg PO Q6HR #30 tab 10/13/21 Albuterol Sulfate [Proair Hfa] 1 - 2 puff INHALATION Q6HR PRN 02/12/22 #8.5 gm Azithromycin [Zithromax Z Pack] 1 tab PO DIRECTED #6 tab 02/12/22 Allergies Allergy/AdvReac Type Severity Reaction Status Date / Time quetiapine [From Seroquel] Allergy Unknown Verified 02/12/22 15:52 wool Allergy Rash/Hives Verified 02/12/22 15:52 methylphenidate HCl AdvReac Nausea & Verified 02/12/22 15:52 [From Ritalin] Vomiting olanzapine [From Zyprexa] AdvReac Nausea & Verified 02/12/22 15:52 Vomiting Review of Systems ROS Statement: Those systems with pertinent positive or pertinent negative responses have been documented in the HPI. ROS Other: All systems not noted in ROS Statement are negative. Past Medical History Past Medical History: Hypertension, Osteoarthritis (OA), Pneumonia, Seizure Disorder, Sleep Apnea/CPAP/BIPAP Additional Past Medical History / Comment(s): Other HX: Last seizure 03/12/15, DJD, arthritis in right pelvic bone and R knee, TRACI (unable to tolerate CPAP), insomnia. History of Any Multi-Drug Resistant Organisms: None Reported Past Surgical History: Appendectomy Additional Past Surgical History / Comment(s): 09/2014 Ajay sotelo Past Anesthesia/Blood Transfusion Reactions: No Reported Reaction Past Psychological History: Anxiety, Bipolar, Depression, Panic Disorder, Schizoaffective Disorder, Schizophrenia Smoking Status: Current every day smoker Past Alcohol Use History: Rare Past Drug Use History: Marijuana - Past Family History Father Family Medical History: Hypertension, Myocardial Infarction ([place]) Additional Family Medical History / Comment(s): Pt reports his father of an [place] at the age of 48. Mother History Unknown: Yes Family Medical History: Cancer Additional Family Medical History / Comment(s): Recently diagnosed with breast cancer. General Exam Limitations: no limitations Course Vital Signs 02/12/22 02/12/22 15:50 18:46 Temperature 98.7 F 98.7 F Pulse Rate 40 L 72 Respiratory 20 18 Rate Blood Pressure 139/81 113/71 O2 Sat by Pulse 94 L 98 Oximetry Medical Decision Making - Lab Data Lab Results 02/12/22 Range/Units 15:56 Influenza Type A (PCR) Not Detected (Not Detectd) Influenza Type B (PCR) Not Detected (Not Detectd) RSV (PCR) Detected A (Not Detectd) SARS-CoV-2 (PCR) Not Detected (Not Detectd) Disposition Clinical Impression: RSV bronchiolitis Disposition: HOME SELF-CARE Condition: Fair Instructions (If sedation given, give patient instructions): Respiratory Syncy tial Virus (ED) Additional Instructions: start taking Z-dee if not better in 4-5 days Prescriptions: Albuterol Sulfate [Proair Hfa] 1 - 2 puff INHALATION Q6HR PRN #8.5 gm PRN Reason: Dyspnea Azithromycin [Zithromax Z Pack] 1 tab PO DIRECTED #6 tab Is patient prescribed a controlled substance at d/c from ED?: No Referrals: Michael Ruffin MD [Primary Care Provider] - 1-2 days Time of Disposition: 18:57
[2022-02-12 18:59] VITALS: RESP 20
== END 2022-02-12 19:13 | disposition home or self-care (01) ==
LOC: EC 15:24
DX: J21.0 Acute bronchiolitis due to respiratory syncytial virus (principal); I10 Essential (primary) hypertension; F41.9 Anxiety disorder, unspecified; F31.9 Bipolar disorder, unspecified; F17.200 Nicotine dependence, unspecified, uncomplicated; F12.90 Cannabis use, unspecified, uncomplicated; Z88.8 Allergy status to other drugs, medicaments and biological substances; Z91.048 Other nonmedicinal substance allergy status; Z88.1 Allergy status to other antibiotic agents; Z79.899 Other long term (current) drug therapy; Z20.822 Contact with and (suspected) exposure to COVID-19
CPT/HCPCS: 71046; 87636; 99284

== ENCOUNTER 2022-02-16 12:39 | Emergency (ER) | payer MEDICARE ==
[2022-02-16 12:50] VITALS: TEMP 98.3
[2022-02-16] MEDS ORDERED: NITROGLYCERIN SL TABS 0.4 MG TAB SUBLINGUAL STA ×3 (13:24)
[2022-02-16] MEDS ORDERED: SODIUM CHLORIDE 0.9% 1,000 ML IV STA (13:24)
[2022-02-16 13:55] LABS: ALT 19 U/L (4-49); AST 20 U/L (17-59); African American GFR (CKD) >90 (>60 ml/min/1.73 sqM); Alkaline Phosphatase 90 U/L (38-126); Amylase 62 U/L (30-110); Anion Gap 8 mmol/L; Blood Urea Nitrogen 13 mg/dL (9-20); Calcium 8.8 mg/dL (8.4-10.2); Carbon Dioxide 25 mmol/L (22-30); Chloride 107 mmol/L (98-107); Glucose 86 mg/dL (74-99); Lipase 99 U/L (23-300); Magnesium 1.8 mg/dL (1.6-2.3); Non-African American GFR(CKD) >90 (>60 ml/min/1.73 sqM); Potassium 4.4 mmol/L (3.5-5.1); Sodium 140 mmol/L (137-145); Total Bilirubin 0.3 mg/dL (0.2-1.3); Total Protein 6.8 g/dL (6.3-8.2)
[2022-02-16 13:56] LABS: INR 0.9 (<1.2); Prothrombin Time 9.8 sec (9.0-12.0)
--- NOTE | 2022-02-16 14:00 | XR ---
EXAMINATION TYPE: XR chest 2V DATE OF EXAM: 02/16/2022 COMPARISON: Chest x-ray 4 days ago. HISTORY: Chest pain. TECHNIQUE: Frontal and lateral views of the chest are obtained. FINDINGS: There is no suspicious focal air space opacity, pleural effusion, or pneumothorax seen. T he cardiac silhouette size is stable and within normal limits. The osseous structures are intact. IMPRESSION: No acute process. No significant change from prior.
[2022-02-16 14:10] LABS: Basophils # (A) 0.1 k/uL (0-0.2); Basophils % (A) 1 %; Eosinophils # (A) 0.5 k/uL (0-0.7); Eosinophils % (A) 4 %; HCT 43.1 % (39.0-53.0); Lymphocytes # (A) 3.1 k/uL (1.0-4.8); Lymphocytes % (A) 27 %; MCH 31.2 pg (25.0-35.0); MCHC 34.8 g/dL (31.0-37.0); MCV 89.5 fL (80.0-100.0); Mean Platelet Volume 8.7; Monocytes # (A) 0.6 k/uL (0-1.0); Monocytes % (A) 5 %; Neutrophils % (A) 61 %; Platelet Count 286 k/uL (150-450); RBC 4.82 m/uL (4.30-5.90); RDW 13.3 % (11.5-15.5); WBC 11.5 k/uL (3.8-10.6)
[2022-02-16] MEDS ORDERED: KETOROLAC 15 MG/ML 1 ML VIAL IVP STA (14:29)
[2022-02-16] MEDS ORDERED: MAG HYDROX/AL HYDROX/SIMETH 30 ML, HYOSCYAMINE ELIXIR 10 ML, LIDOCAINE VISCOUS 2% 10 ML PO STA ×3 (14:50)
--- NOTE | 2022-02-16 15:17 | ED ---
General Adult HPI - General Chief complaint: Chest Pain Stated complaint: chest pain Time Seen by Provider: 02/16/22 13:10 Source: patient, EMS, RN notes reviewed, old records reviewed Mode of arrival: EMS Limitations: no limitations - History of Present Illness Initial comments: Patient is a 36-year-old male who presents emergency Department complaining of chest pain. Started at approximately 10:30am this morning. States he was moving furniture at work when it started. States a sharp pain located along his breastbone. Is worse with palpation. Worse with movement. Significant family cardiac history but no cardiac history for the patient. Denies abdominal pain, nausea, vomiting. Denies shortness of breath. Denies any leg swelling. Denies any exertional dyspnea. States the pain is somewhat improving at this time. He did receive 324 mg of aspirin prior to arrival. Presents for further evaluation for his chest pain. States it was approximately 8 out of 10 earlier and is currently a 3 out of 10. - Related Data Previous Rx's Medication Instructions Recorded Albuterol Sulfate [Proair Hfa] 1 - 2 puff INHALATION Q6HR PRN 02/12/22 #8.5 gm Azithromycin [Zithromax Z Pack] 1 tab PO DIRECTED #6 tab 02/12/22 Famotidine 20 mg PO DAILY 7 Days #7 tablet 02/16/22 Mag Hydrox/Al Hydrox/Simeth 30 ml PO BID PRN #300 ml 02/16/22 [Maalox] Allergies Allergy/AdvReac Type Severity Reaction Status Date / Time quetiapine [From Seroquel] Allergy Unknown Verified 02/16/22 14:07 wool Allergy Rash/Hives Verified 02/16/22 14:07 methylphenidate HCl AdvReac Nausea & Verified 02/16/22 14:07 [From Ritalin] Vomiting olanzapine [From Zyprexa] AdvReac Nausea & Verified 02/16/22 14:07 Vomiting Review of Systems ROS Statement: Those systems with pertinent positive or pertinent negative responses have been documented in the HPI. Review of Systems: CONST: Denies fever EYES: Denies blurry vision ENT: Denies nasal congestion C/V: Endorses chest pain RESP: Denies shortness of breath GI: Denies abdominal pain : Denies dysuria SKIN: Denies rash. MSK: Denies joint pain. NEURO: Denies headache ROS Other: All systems not noted in ROS Statement are negative. Past Medical History Past Medical History: Hypertension, Osteoarthritis (OA), Pneumonia, Seizure Disorder, Sleep Apnea/CPAP/BIPAP Additional Past Medical History / Comment(s): Other HX: Last seizure 03/12/15, DJD, arthritis in right pelvic bone and R knee, TRACI (unable to tolerate CPAP), insomnia. History of Any Multi-Drug Resistant Organisms: None Reported Past Surgical History: Appendectomy Additional Past Surgical History / Comment(s): 09/2014 Lap appy Past Anesthesia/Blood Transfusion Reactions: No Reported Reaction Past Psychological History: Anxiety, Bipolar, Depression, Panic Disorder, [place] hizoaffective Disorder, Schizophrenia Smoking Status: Current every day smoker Past Alcohol Use History: Rare Past Drug Use History: Marijuana - Past Family History Father Family Medical History: Hypertension, Myocardial Infarction ([place]) Additional Family Medical History / Comment(s): Pt reports his father of an [place] at the age of 48. Mother History Unknown: Yes Family Medical History: Cancer Additional Family Medical History / Comment(s): Recently diagnosed with breast cancer. General Exam - General Exam Comments Initial Comments: General: Appears in no acute distress. HEAD: Normal with no signs of head trauma. EYES: PERRLA, EOMI, conjunctiva normal, no discharge. ENT: Hearing grossly intact, normal oropharynx. RESPIRATORY: Clear breath sounds bilaterally. No wheezes, rales, or rhonchi. C/V: Regular rate and rhythm. S1 and S2 auscultated, no edema, peripheral pulses 2+ and intact throughout. Patient has reproducible chest pain along the sternum on palpation. ABD: Abd is soft, nontender, nondistended EXT: Normal range of motion, no obvious deformity SKIN: No rashes or lesions observed on exposed skin. NEURO: Alert and oriented 4. Limitations: no limitations Course Vital Signs 02/16/22 02/16/22 02/16/22 12:46 15:09 18:03 Temperature 98.3 F Pulse Rate 72 62 75 Respiratory 18 18 16 Rate Blood Pressure 134/59 110/77 121/94 O2 Sat by Pulse 98 100 75 L Oximetry Medical Decision Making - Medical Decision Making Based on the patient's presentation and physical exam, I'm concerned for possible cardiac etiology for his current symptoms. Differential includes but is not limited to ACS. Cannot rule GERD or musculoskeletal pain such as costochondritis for the patient. It is reproducible with palpation, which makes me suspect a muscle skeletal etiology. Patient already received aspirin. We will try a nitro tablets for improvement in pain. Cardiac labs, chest x-ray, EKG will be obtained. He was in agreement with this plan. Vital signs within acceptable limits. EKG shows no signs of acute ischemia. Chest x-ray as interpreted by myself reveals no evidence of acute cardio pulmonary process, no infiltrate. Patient's laboratory studies are remarkable for a mild leukocytosis of 11.5 which is likely reactive. Remainder the labs are within normal limits including a undete ctable troponin. On reevaluation, nitro glycerin With did nothing for the patient's chest pain. Due to his family medical history, I did recommend that we admit him to observation for troponin trending which she declined at this time. I did offer to obtain a second troponin today which he did accept. We'll obtain a 3 hour troponin and trial him with IV Toradol as well as a GI cocktail for pain control. He was in agreement this plan. Repeat troponin was undetectable. On reevaluation, patient's pain is resolved. We discussed possible etiologies is being musculoskeletal in nature or acid reflux as this was an atypical pain that was reproducible on palpation. He will follow-up with his PCP. Strict return precautions were discussed. Patient will be discharged home at this time. I will provide the patient with a prescription for famotidine. I instructed the patient to follow up with their PCP in the next 1-3 days. I explained that the patient should return to the emergency department if they experience any worsening symptoms. Strict return precautions were discussed with the patient. The patient expressed understanding of these instructions. I answered all quest ions that the patient had. The patient was discharged home in good condition with their prescriptions and follow up information. - Lab Data Result diagrams: 02/16/22 13:32 02/16/22 13:32 Lab Results 02/16/22 02/16/22 02/16/22 Range/Units 13:32 13:32 13:32 WBC 11.5 H (3.8-10.6) k/uL RBC 4.82 (4.30-5.90) m/uL Hgb 15.0 (13.0-17.5) gm/dL Hct 43.1 (39.0-53.0) % MCV 89.5 (80.0-100.0) fL MCH 31.2 (25.0-35.0) pg MCHC 34.8 (31.0-37.0) g/dL RDW 13.3 (11.5-15.5) % Plt Count 286 (150-450) k/uL MPV 8.7 Neutrophils % 61 % Lymphocytes % 27 % Monocytes % 5 % Eosinophils % 4 % Basophils % 1 % Neutrophils # 7.0 (1.3-7.7) k/uL Lymphocytes # 3.1 (1.0-4.8) k/uL Monocytes # 0.6 (0-1.0) k/uL Eosinophils # 0.5 (0-0.7) k/uL Basophils # 0.1 (0-0.2) k/uL PT 9.8 (9.0-12.0) sec INR 0.9 (<1.2) APTT 28.0 (22.0-30.0) sec Sodium 140 (137-145) mmol/L Potassium 4.4 (3.5-5.1) mmol/L Chloride 107 (98-107) mmol/L Carbon Dioxide 25 (22-30) mmol/L Anion Gap 8 mmol/L BUN 13 (9-20) mg/dL Creatinine 0.77 (0.66-1.25) mg/dL Est GFR (CKD-EPI)AfAm >90 (>60 ml/min/1.73 sqM) Est GFR (CKD-EPI)NonAf >90 (>60 ml/min/1.73 sqM) Glucose 86 (74-99) mg/dL Calcium 8.8 (8.4-10.2) mg/dL Magnesium 1.8 (1.6-2.3) mg/dL Total Bilirubin 0.3 (0.2-1.3) mg/dL AST 20 (17-59) U/L ALT 19 (4-49) U/L Alkaline Phosphatase 90 (38-126) U/L Troponin I (0.000-0.034) ng/mL Total Protein 6.8 (6.3-8.2) g/dL Albumin 4.0 (3.5-5.0) g/dL Amylase 62 (30-110) U/L Lipase 99 (23-300) U/L 02/16/22 02/16/22 Range/Units 13:32 16:24 WBC (3.8-10.6) k/uL RBC (4.30-5.90) m/uL Hgb (13.0-17.5) gm/dL Hct (39.0-53.0) % MCV (80.0-100.0) fL MCH (25.0-35.0) pg MCHC (31.0-37.0) g/dL RDW (11.5-15.5) % Plt Count (150-450) k/uL MPV Neutrophils % % Lymphocytes % % Monocytes % % Eosinophils % % Basophils % % Neutrophils # (1.3-7.7) k/uL Lymphocytes # (1.0-4.8) k/uL Monocytes # (0-1.0) k/uL Eosinophils # (0-0.7) k/uL Basophils # (0-0.2) k/uL PT (9.0-12.0) sec INR (<1.2) APTT (22.0-30.0) sec Sodium (137-145) mmol/L Potassium (3.5-5.1) mmol/L Chloride (98-107) mmol/L Carbon Dioxide (22-30) mmol/L Anion Gap mmol/L BUN (9-20) mg/dL Creatinine (0.66-1.25) mg/dL Est GFR (CKD-EPI)AfAm (>60 ml/min/1.73 sqM) Est GFR (CKD-EPI)NonAf (>60 ml/min/1.73 sqM) Glucose (74-99) mg/dL Calcium (8.4-10.2) mg/dL Magnesium (1.6-2.3) mg/dL Total Bilirubin (0.2-1.3) mg/dL AST (17-59) U/L ALT (4-49) U/L Alkaline Phosphatase (38-126) U/L Troponin I <0.012 <0.012 (0.000-0.034) ng/mL Total Protein (6.3-8.2) g/dL Albumin (3.5-5.0) g/dL Amylase (30-110) U/L Lipase (23-300) U/L - EKG Data -: EKG Interpreted by [facility] EKG Comments: 12-lead Electrocardiogram Interpretation Note EKG was reviewed and interpreted by myself. 12-lead ECG performed at 1243 is interpreted by me as revealing normal sinus rhythm at a rate of 71 beats per minute. Gray is normal. ND interval is 150 ms, QRS duration is 95 ms, QTc is 391 ms.. There were no ST or T wave abnormalities to suggest myocardial ischemia or injury. R wave progression across the precordium was satisfactory. By my interpretation this EKG is non-diagnostic for acute ischemia. When compared with EKG from June 2019, no significant change. Disposition Clinical Impression: Atypical chest pain, Chest wall pain Disposition: HOME SELF-CARE Condition: Good Instructions (If sedation given, give patient instructions): Chest Pain (ED) Prescriptions: Famotidine 20 mg PO DAILY 7 Days #7 tablet Mag Hydrox/Al Hydrox/Simeth [Maalox] 30 ml PO BID PRN #300 ml PRN Reason: Dyspepsia Is patient prescribed a controlled substance at d/c from ED?: No Referrals: Michael Ruffin MD [Primary Care Provider] - 1-2 days Time of Disposition: 17:30
[2022-02-16 18:05] VITALS: BP 121/94; PULSE 75; RESP 16
== END 2022-02-16 18:04 | disposition home or self-care (01) ==
LOC: EC 12:39
DX: R07.89 Other chest pain (principal); I10 Essential (primary) hypertension; G40.909 Epilepsy, unspecified, not intractable, without status epilepticus; F41.9 Anxiety disorder, unspecified; F31.9 Bipolar disorder, unspecified; F17.200 Nicotine dependence, unspecified, uncomplicated; F12.90 Cannabis use, unspecified, uncomplicated; Z88.8 Allergy status to other drugs, medicaments and biological substances; Z91.048 Other nonmedicinal substance allergy status
CPT/HCPCS: 36415; 93005; 80053; 82150; 83690; 83735; 84484; 85025; 85610; 85730; 71046; 99285; 96374; 96361 ×5; J1885

== ENCOUNTER 2022-03-16 09:51 | Emergency (ER) | payer MEDICARE ==
[2022-03-16 10:16] VITALS: TEMP 98.4
--- NOTE | 2022-03-16 10:52 | ED ---
Abdominal Pain HPI - General Source: patient Mode of arrival: ambulatory Limitations: no limitations <Tj Hopkins - Last Filed: 03/16/22 10:52> - General Source: RN notes reviewed <Yaya Sousa - Last Filed: 03/16/22 13:22> - General Chief Complaint: Abdominal Pain Stated Complaint: abd pain Time Seen by Provider: 03/16/22 10:50 - History of Present Illness Initial Comments: Patient is a 36-year-old male presenting with chief complaint of abdominal pain. Patient states that for the last 2 days he has had sharp abdominal pain located in the bilateral lower quadrants as well as periumbilically. She admits to nausea with no vomiting. He admits to diarrhea. Past surgical history includes appendectomy. No testicular pain. He states that he did previously have a fever. No cough, congestion, sore throat, sinus pain. He does admit to h eadache. No chest pain, difficulty breathing, palpitations, weakness. (Tj Hopkins) 28-year-old male presented from for nausea vomiting diarrhea. Patient states that she started diarrhea he states cannot keep any down sent this morning. Patient states his abdominal pain is minimal. Patient denies any reported fever. Patient offers no complaints. (Yaya Sousa) - Related Data Previous Rx's Medication Instructions Recorded Albuterol Sulfate [Proair Hfa] 1 - 2 puff INHALATION Q6HR PRN 02/12/22 #8.5 gm Azithromycin [Zithromax Z Pack] 1 tab PO DIRECTED #6 tab 02/12/22 Famotidine 20 mg PO DAILY 7 Days #7 tablet 02/16/22 Mag Hydrox/Al Hydrox/Simeth 30 ml PO BID PRN #300 ml 02/16/22 [Maalox] Ondansetron Odt [Zofran Odt] 4 mg PO Q8HR PRN #10 tab 03/16/22 Allergies Allergy/AdvReac Type Severity Reaction Status Date / Time quetiapine [From Seroquel] Allergy Unknown Verified 03/16/22 10:16 wool Allergy Rash/Hives Verified 03/16/22 10:16 methylphenidate HCl AdvReac Nausea & Verified 03/16/22 10:16 [From Ritalin] Vomiting olanzapine [From Zyprexa] AdvReac Nausea & Verified 03/16/22 10:16 Vomiting Review of Systems ROS Other: All systems not noted in ROS Statement are negative. <Tj Hopkins - Last Filed: 03/16/22 10:52> ROS Other: All systems not noted in ROS Statement are negative. <JamilacatrachoYaya - Last Filed: 03/16/22 13:22> ROS Statement: Those systems with pertinent positive or pertinent negative responses have been documented in the HPI. Past Medical History Past Medical History: Hypertension, Osteoarthritis (OA), Pneumonia, Seizure Disorder, Sleep Apnea/CPAP/BIPAP Additional Past Medical History / Comment(s): Other HX: Last seizure 03/12/15, DJD, arthritis in right pelvic bone and R knee, TRACI (unable to tolerate CPAP), insomnia. History of Any Multi-Drug Resistant Organisms: None Reported Past Surgical History: Appendectomy Additional Past Surgical History / Comment(s): 09/2014 Lap appy Past Anesthesia/Blood Transfusion Reactions: No Reported Reaction Past Psychological History: Anxiety, Bipolar, Depression, Panic Disorder, Schizoaffective Disorder, Schizophrenia Smoking Status: Current every day smoker Past Alcohol Use History: Rare Past Drug Use History: Marijuana - Past Family History Father Family Medical History: Hypertension, Myocardial Infarction (AR) Additional Family Medical History / Comment(s): Pt reports his father of an AR at the age of 48. Mother History Unknown: Yes Family Medical History: Cancer Additional Family Medical History / Comment(s): Recently diagnosed with breast cancer. <Tj Hopkins - Last Filed: 03/16/22 10:52> General Exam Limitations: no limitations <Tj Hopkins - Last Filed: 03/16/22 10:52> General appearance: alert, in no apparent distress Head exam: Present: atraumatic, normocephalic, normal inspection Eye exam: Present: normal appearance, PERRL, EOMI. Absent: scleral icterus, conjunctival injection, periorbital swelling ENT exam: Present: normal exam, normal oropharynx, mucous membranes moist Neck exam: Present: normal inspection, full ROM. Absent: tenderness, me ningismus, lymphadenopathy Respiratory exam: Present: normal lung sounds bilaterally. Absent: respiratory distress, wheezes, rales, rhonchi, stridor Cardiovascular Exam: Present: regular rate, normal rhythm, normal heart sounds. Absent: systolic murmur, diastolic murmur, rubs, gallop, clicks GI/Abdominal exam: Present: soft, normal bowel sounds. Absent: distended, tenderness, guarding, rebound, rigid <Yaya Sousa - Last Filed: 03/16/22 13:22> Course Vital Signs 03/16/22 10:13 Temperature 98.4 F Pulse Rate 89 Respiratory 20 Rate Blood Pressure 136/86 O2 Sat by Pulse 96 Oximetry Medical Decision Making - Lab Data Result diagrams: 03/16/22 10:53 03/16/22 10:53 <Yaya Sousa Yordan - Last Filed: 03/16/22 13:22> - Medical Decision Making Was pt. sent in by a medical professional or institution (, PA, RECREATIONAL THERAPIST, urgent care, hospital, or care home...) When possible be specific @ -No Did you speak to anyone other than the patient for history (EMS, parent, family, police, friend...)? What history was obtained from this source @ -No Did you review nursing and triage notes (agree or disagree)? Why? @ -I reviewed and agree with nursing and triage notes Were old charts reviewed (outside hosp., previous admission, EMS record, old EKG, old radiological studies, urgent care reports/EKG's, care home records)? Report findings @ -No old charts were reviewed Differential Diagnosis (chest pain, altered mental status, abdominal pain women, abdominal pain men, vaginal bleeding, weakness, fever, dyspnea, syncope, headache, dizziness, GI bleed, back pain, seizure, CVA, palpatations, mental health)? @ -Gastroenteritis, appendicitis, influenza, COVID-19, enteritis, small bowel obstruction, this list is not all inclusive EKG interpreted by me (3pts min.). @ -none X-rays interpreted by me (1pt min.). @ -None done CT interpreted by me (1pt min.). @ -None done U/S interpreted by me (1pt. min.). @ -None done What testing was considered but not performed or refused? (CT, X-rays, U/S, labs)? Why? @ -CT was considered though patient is improved after IV fluids, antiemetics. What meds were considered but not given or refused? Why? @ -None Did you discuss the management of the patient with other professionals (professionals i.e. , PA, RECREATIONAL THERAPIST, lab, RT, psych nurse, social work msw, security installation technician, teacher, corrections officer, family service caseworker)? Give summary @ -No Was smoking cessation discussed for >3mins.? @ -No Was critical care preformed (if so, how long)? @ -No Were there social determinants of health that impacted care today? How? (Homelessness, low income, unemployed, alcoholism, drug addiction, transportation, low edu. Level, literacy, decrease access to med. care, alf, rehab)? @ -No Was there de-escalation of care discussed even if they declined (Discuss DNR or withdrawal of care, Hospice)? DNR status @ -No What co-morbidities impacted this encounter? (DM, HTN, Smoking, COPD, CAD, Cancer, CVA, ARF, Chemo, Hep., AIDS, mental health diagnosis, sleep apnea, morbid obesity)? @ -None Was patient admitted / discharged? Hospital course, mention meds given and route, prescriptions, significant lab abnormalities, going to OR and other per tinent info. @ -Patient was discharged. Patient was given antiemetics, IV fluids, labs reviewed patient has gastroenteritis. Patient was discharged with Zofran return parameters were discussed. Undiagnosed new problem with uncertain prognosis? @ -No Drug Therapy requiring intensive monitoring for toxicity (Heparin, Nitro, Insulin, Cardizem)? @ -No Were any procedures done? @ -No Diagnosis/symptom? @ -Gastroenteritis Acute, or Chronic, or Acute on Chronic? @ -Acute Uncomplicated (without systemic symptoms) or Complicated (systemic symptoms)? @ -Uncomplicated Side effects of treatment? @ -No Exacerbation, Progression, or Severe Exacerbation? @ -No Poses a threat to life or bodily function? How? (Chest pain, USA, AR, pneumonia, PE, COPD, DKA, ARF, appy, cholecystitis, CVA, Diverticulitis, Homicidal, Suicidal, threat to staff... and all critical care pts) @ -No (Yaya Sousa) - Lab Data Lab Results 03/16/22 03/16/22 03/16/22 Range/Units 10:53 10:53 10:53 WBC 10.8 H (3.8-10.6) k/uL RBC 5.44 (4.30-5.90) m/uL Hgb 16.8 (13.0-17.5) gm/dL Hct 48.3 (39.0-53.0) % MCV 88.9 (80.0-100.0) fL MCH 30.9 (25.0-35.0) pg MCHC 34.7 (31.0-37.0) g/dL RDW 13.1 (11.5-15.5) % Plt Count 305 (150-450) k/uL MPV 8.0 Neutrophils % 69 % Lymphocytes % 20 % Monocytes % 4 % Eosinophils % 4 % Basophils % 1 % Neutrophils # 7.5 (1.3-7.7) k/uL Lymphocytes # 2.2 (1.0-4.8) k/uL Monocytes # 0.5 (0-1.0) k/uL Eosinophils # 0.4 (0-0.7) k/uL Basophils # 0.1 (0-0.2) k/uL Sodium 140 (137-145) mmol/L Potassium 4.3 (3.5-5.1) mmol/L Chloride 110 H (98-107) mmol/L Carbon Dioxide 20 L (22-30) mmol/L Anion Gap 10 mmol/L BUN 17 (9-20) mg/dL Creatinine 0.72 (0.66-1.25) mg/dL Est GFR (CKD-EPI)AfAm >90 (>60 ml/min/1.73 sqM) Est GFR (CKD-EPI)NonAf >90 (>60 ml/min/1.73 sqM) Glucose 102 H (74-99) mg/dL Plasma Lactic Acid Shahram 0.8 (0.7-2.0) mmol/L Calcium 8.9 (8.4-10.2) mg/dL Total Bilirubin 0.4 (0.2-1.3) mg/dL AST 23 (17-59) U/L ALT 26 (4-49) U/L Alkaline Phosphatase 96 (38-126) U/L Total Protein 7.3 (6.3-8.2) g/dL Albumin 4.3 (3.5-5.0) g/dL Amylase 55 (30-110) U/L Lipase 91 (23-300) U/L Influenza Type A (PCR) (Not Detectd) Influenza Type B (PCR) (Not Detectd) RSV (PCR) (Not Detectd) SARS-CoV-2 (PCR) (Not Detectd) 03/16/22 Range/Units 10:53 WBC (3.8-10.6) k/uL RBC (4.30-5.90) m/uL Hgb (13.0-17.5) gm/dL Hct (39.0-53.0) % MCV (80.0-100.0) fL MCH (25.0-35.0) pg MCHC (31.0-37.0) g/dL RDW (11.5-15.5) % Plt Count (150-450) k/uL MPV Neutrophils % % Lymphocytes % % Monocytes % % Eosinophils % % Basophils % % Neutrophils # (1.3-7.7) k/uL Lymphocytes # (1.0-4.8) k/uL Monocytes # (0-1.0) k/uL Eosinophils # (0-0.7) k/uL Basophils # (0-0.2) k/uL Sodium (137-145) mmol/L Potassium (3.5-5.1) mmol/L Chloride (98-107) mmol/L Carbon Dioxide (22-30) mmol/L Anion Gap mmol/L BUN (9-20) mg/dL Creatinine (0.66-1.25) mg/dL Est GFR (CKD-EPI)AfAm (>60 ml/min/1.73 sqM) Est GFR (CKD-EPI)NonAf (>60 ml/min/1.73 sqM) Glucose (74-99) mg/dL Plasma Lactic Acid Shahram (0.7-2.0) mmol/L Calcium (8.4-10.2) mg/dL Total Bilirubin (0.2-1.3) mg/dL AST (17-59) U/L ALT (4-49) U/L Alkaline Phosphatase (38-126) U/L Total Protein (6.3-8.2) g/dL Albumin (3.5-5.0) g/dL Amylase (30-110) U/L Lipase (23-300) U/L Influenza Type A (PCR) Not Detected (Not Detectd) Influenza Type B (PCR) Not Detected (Not Detectd) RSV (PCR) Not Detected (Not Detectd) SARS-CoV-2 (PCR) Not Detected (Not Detectd) Disposition <Tj Hopkins - Last Filed: 03/16/22 10:52> Is patient prescribed a controlled substance at d/c from ED?: No Time of Disposition: 13:22 <Yaya Sousa - Last Filed: 03/16/22 13:22> Clinical Impression: Gastroenteritis Disposition: HOME SELF-CARE Condition: Stable Instructions (If sedation given, give patient instructions): Gastroenteritis (ED) Additional Instructions: Please return to the Emergency Department if symptoms worsen or any other concerns. Prescriptions: Ondansetron Odt [Zofran Odt] 4 mg PO Q8HR PRN #10 tab PRN Reason: Nausea Referrals: Michael Ruffin MD [Primary Care Provider] - 1-2 days
[2022-03-16] MEDS ORDERED: ONDANSETRON 4 MG/2 ML VIAL IVP STA (10:53)
[2022-03-16] MEDS ORDERED: SODIUM CHLORIDE 0.9% 1,000 ML IV STA (10:53)
[2022-03-16 11:29] LABS: Basophils # (A) 0.1 k/uL (0-0.2); Basophils % (A) 1 %; Eosinophils # (A) 0.4 k/uL (0-0.7); Eosinophils % (A) 4 %; HCT 48.3 % (39.0-53.0); HGB 16.8 gm/dL (13.0-17.5); Lymphocytes # (A) 2.2 k/uL (1.0-4.8); Lymphocytes % (A) 20 %; MCH 30.9 pg (25.0-35.0); MCHC 34.7 g/dL (31.0-37.0); MCV 88.9 fL (80.0-100.0); Monocytes # (A) 0.5 k/uL (0-1.0); Monocytes % (A) 4 %; Neutrophils # (A) 7.5 k/uL (1.3-7.7); Neutrophils % (A) 69 %; Platelet Count 305 k/uL (150-450); RBC 5.44 m/uL (4.30-5.90); RDW 13.1 % (11.5-15.5); WBC 10.8 k/uL (3.8-10.6)
[2022-03-16 11:58] LABS: Potassium 4.3 mmol/L (3.5-5.1)
[2022-03-16 11:59] LABS: ALT 26 U/L (4-49); AST 23 U/L (17-59); African American GFR (CKD) >90 (>60 ml/min/1.73 sqM); Albumin 4.3 g/dL (3.5-5.0); Alkaline Phosphatase 96 U/L (38-126); Amylase 55 U/L (30-110); Anion Gap 10 mmol/L; Blood Urea Nitrogen 17 mg/dL (9-20); Calcium 8.9 mg/dL (8.4-10.2); Carbon Dioxide 20 mmol/L (22-30); Chloride 110 mmol/L (98-107); Glucose 102 mg/dL (74-99); Lipase 91 U/L (23-300); Non-African American GFR(CKD) >90 (>60 ml/min/1.73 sqM); Sodium 140 mmol/L (137-145); Total Bilirubin 0.4 mg/dL (0.2-1.3); Total Protein 7.3 g/dL (6.3-8.2)
[2022-03-16] MEDS ORDERED: KETOROLAC 15 MG/ML 1 ML VIAL IVP STA (12:16)
[2022-03-16 13:57] VITALS: BP 112/76; PULSE 70; RESP 16
== END 2022-03-16 13:57 | disposition home or self-care (01) ==
LOC: EC 09:51
DX: K52.9 Noninfective gastroenteritis and colitis, unspecified (principal); I10 Essential (primary) hypertension; G47.30 Sleep apnea, unspecified; F41.9 Anxiety disorder, unspecified; F31.9 Bipolar disorder, unspecified; F17.200 Nicotine dependence, unspecified, uncomplicated; F12.90 Cannabis use, unspecified, uncomplicated; Z20.822 Contact with and (suspected) exposure to COVID-19; Z91.048 Other nonmedicinal substance allergy status; Z88.8 Allergy status to other drugs, medicaments and biological substances
CPT/HCPCS: 36415; 80053; 82150; 83605; 83690; 85025; 87636; 99284; 96374; 96375; 96361 ×2; J2405; J1885

== ENCOUNTER 2022-05-26 17:49 | Emergency (ER) | payer MEDICARE ==
[2022-05-26 18:00] VITALS: BP 157/66; PULSE 106; TEMP 99.4
[2022-05-26] MEDS ORDERED: ONDANSETRON 4 MG/2 ML VIAL IVP STA (18:33)
[2022-05-26] MEDS ORDERED: SODIUM CHLORIDE 0.9% 500 ML 500 ML IV STA (18:33)
[2022-05-26 19:01] LABS: Basophils # (A) 0.1 k/uL (0-0.2); Basophils % (A) 1 %; Eosinophils # (A) 0.4 k/uL (0-0.7); Eosinophils % (A) 3 %; HCT 45.3 % (39.0-53.0); HGB 15.4 gm/dL (13.0-17.5); Lymphocytes # (A) 2.1 k/uL (1.0-4.8); Lymphocytes % (A) 16 %; MCH 30.1 pg (25.0-35.0); MCV 88.8 fL (80.0-100.0); Mean Platelet Volume 7.1; Monocytes # (A) 0.8 k/uL (0-1.0); Monocytes % (A) 6 %; Neutrophils # (A) 9.6 k/uL (1.3-7.7); Neutrophils % (A) 73 %; Platelet Count 336 k/uL (150-450); RDW 13.1 % (11.5-15.5); WBC 13.1 k/uL (3.8-10.6)
[2022-05-26 19:10] LABS: ALT 22 U/L (4-49); African American GFR (CKD) >90 (>60 ml/min/1.73 sqM); Albumin 3.8 g/dL (3.5-5.0); Anion Gap 6 mmol/L; Blood Urea Nitrogen 9 mg/dL (9-20); Calcium 8.7 mg/dL (8.4-10.2); Carbon Dioxide 24 mmol/L (22-30); Chloride 105 mmol/L (98-107); Glucose 90 mg/dL (74-99); Non-African American GFR(CKD) >90 (>60 ml/min/1.73 sqM); Sodium 135 mmol/L (137-145); Total Bilirubin 0.8 mg/dL (0.2-1.3); Total Protein 6.6 g/dL (6.3-8.2)
[2022-05-26 19:12] LABS: AST 26 U/L (17-59); Potassium 4.4 mmol/L (3.5-5.1)
[2022-05-26 19:13] LABS: Alkaline Phosphatase 78 U/L (38-126)
--- NOTE | 2022-05-26 19:35 | ED ---
Nausea/Vomiting/Diarrhea HPI - General Chief complaint: Nausea/Vomiting/Diarrhea Stated complaint: Dizziness,Vomiting Time Seen by Provider: 05/26/22 18:01 Source: patient Mode of arrival: ambulatory Limitations: no limitations - History of Present Illness Initial comments: This patient is a 37-year-old man who presents with a constellation of symptoms that have come on over the course of the past few hours. 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 He has had some chills, possibly mild fever. The patient has some body aches, and then began to have nausea and vomiting. No hematemesis or coffee-ground emesis. No abdominal pain. No change in bowel movements. MD complaint: nausea, vomiting Onset/Timin -: days(s) Description of Vomiting: food contents Associated Abdominal Pain: No Radiation: none Severity scale (1-10): 0 Consistency: intermittent Improves with: none Worsens with: none Associated Symptoms: myalgias, fever/chills - Related Data Home Medications Medication Instructions Recorded Confirmed No Known Home Medications 05/26/22 05/26/22 Allergies Allergy/AdvReac Type Severity Reaction Status Date / Time quetiapine [From Seroquel] Allergy Unknown Verified 05/26/22 18:54 wool Allergy Rash/Hives Verified 05/26/22 18:54 methylphenidate HCl AdvReac Nausea & Verified 05/26/22 18:54 [From Ritalin] Vomiting olanzapine [From Zyprexa] AdvReac Nausea & Verified 05/26/22 18:54 Vomiting Review of Systems ROS Statement: Those systems with pertinent positive or pertinent negative responses have been documented in the HPI. ROS Other: All systems not noted in ROS Statement are negative. Constitutional: Reports: chills. Denies: weakness Respiratory: Denies: cough, dyspnea Cardiovascular: Denies: chest pain, palpitations, edema, syncope Gastrointestinal: Reports: nausea, vomiting. Denies: abdominal pain, diarrhea, hematemesis, melena, hematochezia Genitourinary: Denies: dysuria, hematuria Musculoskeletal: Denies: back pain Skin: Denies: rash Neurological: Denies: headache, weakness, numbness Past Medical History Past Medical History: Hypertension, Osteoarthritis (OA), Pneumonia, Seizure Dis order, Sleep Apnea/CPAP/BIPAP Additional Past Medical History / Comment(s): Other HX: Last seizure 03/12/15, DJD, arthritis in right pelvic bone and R knee, TRACI (unable to tolerate CPAP), insomnia. History of Any Multi-Drug Resistant Organisms: None Reported Past Surgical History: Appendectomy Additional Past Surgical History / Comment(s): 09/2014 Lap appy Past Anesthesia/Blood Transfusion Reactions: No Reported Reaction Past Psychological History: Anxiety, Bipolar, Depression, Panic Disorder, Schizoaffective Disorder, Schizophrenia Smoking Status: Current every day smoker Past Alcohol Use History: Rare Past Drug Use History: Marijuana - Past Family History Father Family Medical History: Hypertension, Myocardial Infarction (ME) Additional Family Medical History / Comment(s): Pt reports his father of an ME at the age of 48. Mother History Unknown: Yes Family Medical History: Cancer Additional Family Medical History / Comment(s): Recently diagnosed with breast cancer. General Exam Limitations: no limitations General appearance: alert, in no apparent distress Head exam: Present: atraumatic, normocephalic Eye exam: Present: normal appearance. Absent: scleral icterus, conjunctival injection ENT exam: Present: normal oropharynx Neck exam: Present: normal inspection Respiratory exam: Present: normal lung sounds bilaterally. Absent: respiratory distress, wheezes, rales, rhonchi, stridor Cardiovascular Exam: Present: regular rate, normal rhythm, normal heart sounds. Absent: systolic murmur, diastolic murmur, rubs, gallop GI/Abdominal exam: Present: soft. Absent: distended, tenderness, guarding, rebound, rigid, mass Extremities exam: Present: normal inspection, normal capillary refill. Absent: pedal edema, calf tenderness Back exam: Present: normal inspection. Absent: CVA tenderness (R), CVA tenderness (L) Neurological exam: Present: alert Skin exam: Present: warm, dry, intact, normal color. Absent: rash Course Vital Signs 05/26/22 05/26/22 17:57 20:15 Temperature 99.4 F Pulse Rate 106 H Respiratory 22 16 Rate Blood Pressure 157/66 O2 Sat by Pulse 96 Oximetry Medical Decision Making - Medical Decision Making This patient is 37-year-old man with constellation of symptoms as well as physical exam that are consistent with possible viral gastroenteritis. He is feeling better here after fluids and medication. He would like to go home. Discussed appropriate further care and follow-up with the patient. Discussed return parameters. Was pt. sent in by a medical professional or institution (FLOYD Lee, STUDIO OWNER, urgent care, hospital, or retirement...) When possible be specific @ -[No] Did you speak to anyone other than the patient for history (EMS, parent, family, police, friend...)? What history was obtained from this source @ -[No] Did you review nursing and triage notes (agree or disagree)? Why? @ -[I reviewed and agree with nursing and triage notes] Were old charts reviewed (outside hosp., previous admission, EMS record, old EKG, old radiological studies, urgent care reports/EKG's, retirement records)? Report findings @ -[No old charts were reviewed] Differential Diagnosis (chest pain, altered mental status, abdominal pain women, abdominal pain men, vaginal bleeding, weakness, fever, dyspnea, syncope, headache, dizziness, GI bleed, back pain, seizure, CVA, palpatations, mental health, musculoskeletal)? @ -[Differential Abdominal Pain Men: Appendicitis, cholecystitis, diverticulosis, ischemic bowel, pancreatitis, hepatitis, UTI, gastroenteritis, AAA, incarcerated hernia, bowel obstruction, constipation, inflammatory bowel, hepatitis, peptic ulcer disease, splenic infarction, perforated viscus, testicular torsion, this is not meant to be an all-inclusive list EKG interpreted by me (3pts min.). @ -[ X-rays interpreted by me (1pt min.). @ -[None done] CT interpreted by me (1pt min.). @ -[None done] U/S interpreted by me (1pt. min.). @ -[None done] What testing was considered but not performed or refused? (CT, X-rays, U/S, labs)? Why? @ -[None] What meds were considered but not given or refused? Why? @ -[None] Did you discuss the management of the patient with other professionals (professionals i.e. FLOYD Lee, STUDIO OWNER, lab, RT, psych nurse, social worker school, offset duplicating machine operator, teacher, first officer, counseling case manager)? Give summary @ -[No] Was smoking cessation discussed for >3mins.? @ -[No] Was critical care preformed (if so, how long)? @ -[No] Were there social determinants of health that impacted care today? How? (Homelessness, low income, unemployed, alcoholism, drug addiction, transportation, low edu. Level, literacy, decrease access to med. care, residential, rehab)? @ -[No] Was there de-escalation of care discussed even if they declined (Discuss DNR or withdrawal of care, Hospice)? DNR status @ -[No] What co-morbidities impacted this encounter? (DM, HTN, Smoking, COPD, CAD, Cancer, CVA, ARF, Chemo, Hep., AIDS, mental health diagnosis, sleep apnea, mor bid obesity)? @ -[None] Was patient admitted / discharged? Hospital course, mention meds given and route, prescriptions, significant lab abnormalities, going to OR and other pertinent info. @ -[Discharged Undiagnosed new problem with uncertain prognosis? @ -[No] Drug Therapy requiring intensive monitoring for toxicity (Heparin, Nitro, Insulin, Cardizem)? @ -[No] Were any procedures done? @ -[No] Diagnosis/symptom? @ -[Acute nausea and vomiting, uncomplicated Acute, or Chronic, or Acute on Chronic? @ -[default] Uncomplicated (without systemic symptoms) or Complicated (systemic symptoms)? @ -[default] Side effects of treatment? @ -[No] Exacerbation, Progression, or Severe Exacerbation? @ -[No] Poses a threat to life or bodily function? How? (Chest pain, USA, ME, pneumonia, PE, COPD, DKA, ARF, appy, cholecystitis, CVA, Diverticulitis, Homicidal, Suicidal, threat to staff... and all critical care pts) @ -[No] - Lab Data Result diagrams: 05/26/22 18:46 05/26/22 18:46 Lab Results 05/26/22 05/26/22 05/26/22 Range/Units 18:46 18:46 18:46 WBC 13.1 H (3.8-10.6) k/uL RBC 5.10 (4.30-5.90) m/uL Hgb 15.4 (13.0-17.5) gm/dL Hct 45.3 (39.0-53.0) % MCV 88.8 (80.0-100.0) fL MCH 30.1 (25.0-35.0) pg MCHC 34.0 (31.0-37.0) g/dL RDW 13.1 (11.5-15.5) % Plt Count 336 (150-450) k/uL MPV 7.1 Neutrophils % 73 % Lymphocytes % 16 % Monocytes % 6 % Eosinophils % 3 % Basophils % 1 % Neutrophils # 9.6 H (1.3-7.7) k/uL Lymphocytes # 2.1 (1.0-4.8) k/uL Monocytes # 0.8 (0-1.0) k/uL Eosinophils # 0.4 (0-0.7) k/uL Basophils # 0.1 (0-0.2) k/uL Sodium 135 L (137-145) mmol/L Potassium 4.4 (3.5-5.1) mmol/L Chloride 105 (98-107) mmol/L Carbon Dioxide 24 (22-30) mmol/L Anion Gap 6 mmol/L BUN 9 (9-20) mg/dL Creatinine 0.64 L (0.66-1.25) mg/dL Est GFR (CKD-EPI)AfAm >90 (>60 ml/min/1.73 sqM) Est GFR (CKD-EPI)NonAf >90 (>60 ml/min/1.73 sqM) Glucose 90 (74-99) mg/dL Calcium 8.7 (8.4-10.2) mg/dL Total Bilirubin 0.8 (0.2-1.3) mg/dL AST 26 (17-59) U/L ALT 22 (4-49) U/L Alkaline Phosphatase 78 (38-126) U/L Total Protein 6.6 (6.3-8.2) g/dL Albumin 3.8 (3.5-5.0) g/dL Coronavirus (PCR) Not Detected (Not Detectd) Disposition Clinical Impression: Vomiting Disposition: HOME SELF-CARE Condition: Good Instructions (If sedation given, give patient instructions): Acute Nausea and Vomiting (ED) Is patient prescribed a controlled substance at d/c from ED?: No Referrals: Michael Ruffin MD [Primary Care Provider] - 1-2 days
[2022-05-26 20:16] VITALS: RESP 16
== END 2022-05-26 20:16 | disposition home or self-care (01) ==
LOC: EC 17:49
DX: R11.2 Nausea with vomiting, unspecified (principal); I10 Essential (primary) hypertension; F17.200 Nicotine dependence, unspecified, uncomplicated; F12.90 Cannabis use, unspecified, uncomplicated; Z20.822 Contact with and (suspected) exposure to COVID-19; Z88.8 Allergy status to other drugs, medicaments and biological substances; Z91.048 Other nonmedicinal substance allergy status
CPT/HCPCS: 36415; 80053; 85025; 87635; 99284; 96374; 96361; J2405

== ENCOUNTER 2022-10-23 14:27 | Emergency (ER) | payer MEDICARE, OTHER ==
--- NOTE | 2022-10-23 14:39 | ED ---
Skin/Abscess/FB HPI - General Source: patient, RN notes reviewed Mode of arrival: ambulatory Limitations: no limitations - History of Present Illness MD complaint: rash Onset/Timin -: days(s) <Kenna Chan - Last Filed: 10/23/22 14:39> <Aurelia Vieira - Last Filed: 10/23/22 16:11> - General Chief complaint: Skin/Abscess/Foreign Body Stated complaint: rash Time Seen by Provider: 10/23/22 14:35 - History of Present Illness Initial comments: This is a 37 year old male who presents to the emergency department for a rash. States that over the last couple of days he has noticed a rash between his fingers and on the bottom of his legs. Describes this as being very itchy. He is concerned about scabies, which he has had in the past, however, symptoms feel different this time. He has been applying cortisone cream with no relief in symptoms. (Kenna Chan) HPI as above reviewed. He is a past medical history significant for seizures hypertension and arthritis. (Aurelia Vieira) - Related Data Previous Rx's Medication Instructions Recorded Permethrin 5% Cream [Elimite] 1 applic TOPICAL ONCE #60 gm 10/23/22 Allergies Allergy/AdvReac Type Severity Reaction Status Date / Time quetiapine [From Seroquel] Allergy Unknown Verified 05/26/22 18:54 wool Allergy Rash/Hives Verified 05/26/22 18:54 methylphenidate HCl AdvReac Nausea & Verified 05/26/22 18:54 [From Ritalin] Vomiting olanzapine [From Zyprexa] AdvReac Nausea & Verified 05/26/22 18:54 Vomiting Review of Systems ROS Other: All systems not noted in ROS Statement are negative. <Kenna Chan - Last Filed: 10/23/22 14:39> ROS Other: All systems not noted in ROS Statement are negative. <Aurelia Vieira - Last Filed: 10/23/22 16:11> ROS Statement: Those systems with pertinent positive or pertinent negative responses have been documented in the HPI. Past Medical History Past Medical History: Hypertension, Osteoarthritis (OA), Pneumonia, Seizure Disorder, Sleep Apnea/CPAP/BIPAP Additional Past Medical History / Comment(s): Other HX: Last seizure 03/12/15, DJD, arthritis in right pelvic bone and R knee, TRACI (unable to tolerate CPAP), insomnia. History of Any Multi-Drug Resistant Organisms: None Reported Past Surgical History: Appendectomy Additional Past Surgical History / Comment(s): 09/2014 Ajay sotelo Past Anesthesia/Blood Transfusion Reactions: No Reported Reaction Past Psychological History: Anxiety, Bipolar, Depression, Panic Disorder, Schizoaffective Disorder, Schizophrenia Smoking Status: Current every day smoker Past Alcohol Use History: Rare Past Drug Use History: Marijuana - Past Family History Father Family Medical History: Hypertension, Myocardial Infarction (MT) Additional Family Medical History / Comment(s): Pt reports his father of an MT at the age of 48. Mother History Unknown: Yes Family Medical History: Cancer Additional Family Medical History / Comment(s): Recently diagnosed with breast cancer. <Kenna Chan - Last Filed: 10/23/22 14:39> General Exam <Kenna Chan - Last Filed: 10/23/22 14:39> Limitations: no limitations General appearance: alert, in no apparent distress Head exam: Present: atraumatic, normocephalic, normal inspection Eye exam: Present: normal appearance, PERRL, EOMI. Absent: scleral icterus, conjunctival injection, periorbital swelling ENT exam: Present: normal exam, mucous membranes moist Neck exam: Present: normal inspection, full ROM Respiratory exam: Absent: respiratory distress, accessory muscle use Cardiovascular Exam: Present: regular rate GI/Abdominal exam: Present: soft. Absent: distended, tenderness, guarding, rebound, rigid Rectal exam: Present: deferred Extremities exam: Present: normal inspection, other (rash as below). Absent: pedal edema, joint swelling Back exam: Present: full ROM Neurological exam: Present: alert, oriented X3, CN II-XII intact Psychiatric exam: Present: normal affect, normal mood Skin exam: Present: rash (Diffuse scattered small papular lesions rash to bilateral upper extremities, lower extremities and small amount to lower abdomen as well.), urticaria <Aurelia Vieira - Last Filed: 10/23/22 16:11> - General Exam Comments Initial Comments: Visual Physical Exam Vital signs reviewed General: Well-appearing, nontoxic, no acute distress. Head: Normocephalic, atraumatic Eyes: PERRLA, EOMI ENT: Airway patent Chest: Nonlabored breathing Skin: Rash between the fingers and on the hands Neuro: Alert and oriented 3 Musculoskeletal: No gross abnormalities I performed the QuickNote portion of this chart. Signed Kenna Chan PA-C. (Kenna Chan) Course Vital Signs 10/23/22 10/23/22 14:36 15:40 Temperature 98 F 97.9 F Pulse Rate 99 91 Respiratory 20 16 Rate Blood Pressure 108/67 110/79 O2 Sat by Pulse 98 98 Oximetry Medical Decision Making <Isha,Laura - Last Filed: 10/23/22 16:11> - Medical Decision Making Was pt. sent in by a medical professional or institution ([facility], [facility], urgent care, hospital, or usp...) When possible be specific @ -No Did you speak to anyone other than the patient for history (EMS, parent, family, police, friend...)? What history was obtained from this source @ -No Did you review nursing and triage notes (agree or disagree)? Why? @ -I reviewed and agree with nursing and triage notes Were old charts reviewed (outside hosp., previous admission, EMS record, old EKG, old radiological studies, urgent care reports/EKG's, usp records)? Report findings @ -No old charts were reviewed Differential Diagnosis (chest pain, altered mental status, abdominal pain women, abdominal pain men, vaginal bleeding, weakness, fever, dyspnea, syncope, headache, dizziness, GI bleed, back pain, seizure, CVA, palpatations, mental health, musculoskeletal)? @ -Differential Rash: Contact dermatitis, allergic reaction, petechial rash, herpes zoster, urticaria, MRSA infection, cellulitis, erythema multiformea, tinea corpus, impetigo, and, insect bite, atopic dermatitis, this is not meant to be an all-inclusive list. EKG interpreted by me (3pts min.). @ -None done X-rays interpreted by me (1pt min.). @ -None done CT interpreted by me (1pt min.). @ -None done U/S interpreted by me (1pt. min.). @ -None done What testing was considered but not performed or refused? (CT, X-rays, U/S, labs)? Why? @ -None What meds were considered but not given or refused? Why? @ -None Did you discuss the management of the patient with other professionals (nathaly wong i.e. , PA, [facility], lab, RT, psych nurse, social services specialist, dock coordinator, teacher, community cultural development officer, caseworker intake)? Give summary @ -No Was smoking cessation discussed for >3mins.? @ -No Was critical care preformed (if so, how long)? @ -No Were there social determinants of health that impacted care today? How? (Homelessness, low income, unemployed, alcoholism, drug addiction, transportation, low edu. Level, literacy, decrease access to med. care, halfway, rehab)? @ -No Was there de-escalation of care discussed even if they declined (Discuss DNR or withdrawal of care, Hospice)? DNR status @ -No What co-morbidities impacted this encounter? (DM, HTN, Smoking, COPD, CAD, Cancer, CVA, ARF, Chemo, Hep., AIDS, mental health diagnosis, sleep apnea, morbid obesity)? @ -None Was patient admitted / discharged? Hospital course, mention meds given and route, prescriptions, significant lab abnormalities, going to OR and other pertinent info. @ -37-year-old male presenting to the emergency room with complaints of rash to his bilateral upper and lower extremities including the hands and between the webbing from his fingers. 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 He reports that symptoms are similar to his previous scabies infection. He reports not having scabies infection in quite some time. He used topical hydrocortisone cream with no response. No indication for any diagnostic imaging or laboratory studies. Rash consistent with scabies infection. Treatment protocol reviewed with patient. Will give permethrin and advised may continue to use hydrocortisone cream for itching along with Benadryl [id number]. Encouraged good hygiene and cleaning of oral and and and clothing in hot water. Questions and concerns answered. Return parameters the emergency room discussed. Will discharge home in stable condition with topical treatment for scabies encouraging no return to work for 48 hours until after treatment; advise follow- up with primary care provider. Undiagnosed new problem with uncertain prognosis? @ -No Drug Therapy requiring intensive monitoring for toxicity (Heparin, Nitro, Insulin, Cardizem)? @ -No Were any procedures done? @ -No Diagnosis/symptom? @ -Scabies Acute, or Chronic, or Acute on Chronic? @ -Acute Uncomplicated (without systemic symptoms) or Complicated (systemic symptoms)? @ -Uncomplicated Side effects of treatment? @ -No Exacerbation, Progression, or Severe Exacerbation? @ -No Poses a threat to life or bodily function? How? (Chest pain, USA, MT, pneumonia, PE, COPD, DKA, ARF, appy, cholecystitis, CVA, Diverticulitis, Homicidal, [place], threat to staff... and all critical care pts) @ -No Case discussed with Dr. Bullard. (Aurelia Vieira) Disposition <Kenna Chan - Last Filed: 10/23/22 14:39> Is patient prescribed a controlled substance at d/c from ED?: No Time of Disposition: 15:27 <Aurelia Vieira - Last Filed: 10/23/22 16:11> Clinical Impression: Scabies Disposition: HOME SELF-CARE Condition: Stable Instructions (If sedation given, give patient instructions): Scabies (ED) Additional Instructions: Utilize permethrin cream to all areas of the rash including fingers toes in the groin and underneath beds. [id number] Benadryl may help relieve itching along with topical hydrocortisone cream. Washing of bedding and clothing in hot water is recommended. Please return to the Emergency Department if symptoms worsen or any other concerns. Prescriptions: Permethrin 5% Cream [Elimite] 1 applic TOPICAL ONCE #60 gm Referrals: Michael Ruffin MD [STAFF PHYSICIAN] - 1-2 days
[2022-10-23 15:42] VITALS: BP 110/79; PULSE 91; RESP 16; TEMP 97.9
== END 2022-10-23 19:04 | disposition home or self-care (01) ==
LOC: EC 14:27
DX: B86 Scabies (principal); I10 Essential (primary) hypertension; F17.200 Nicotine dependence, unspecified, uncomplicated; F12.90 Cannabis use, unspecified, uncomplicated; Z88.8 Allergy status to other drugs, medicaments and biological substances; Z91.09 Other allergy status, other than to drugs and biological substances
CPT/HCPCS: 99282

== ENCOUNTER 2023-03-14 14:56 | Emergency (ER) | payer MEDICARE ==
--- NOTE | 2023-03-14 15:01 | ED ---
General Adult HPI - General Source: patient, RN notes reviewed Mode of arrival: ambulatory Limitations: no limitations <Yaya Sousa - Last Filed: 03/14/23 14:58> <Steve Brand - Last Filed: 03/14/23 23:09> - General Stated complaint: Left side chest pain Time Seen by Provider: 03/14/23 14:58 - History of Present Illness Initial comments: 37-year-old male presents emergency Department chief complaint of left-sided chest pain. Patient states been after last few days. Patient states it sharp pain that feels like a lightning bolt. Patient states he has no prior cardiac issues. Denies any fevers, chills, cough or cold like symptoms denies any headache or dizziness. He states pain is intermittently. Patient does have a history of hypertension (Yaya Sousa) Patient is a 37-year-old male presents he was Department complaining of chest pain that radiates all across the left arm and the left pectoral muscle. Currently is asymptomatic. States it is on and off for multiple days. Does occasionally, shortness of breath he thinks. Denies any fevers, chills, cough. States this has happened previously with no clear diagnosis. No cardiac history. Presents for further evaluation. Vital signs are within acceptable limits. I evaluated the patient when he was placed in a room. Originally mirtaal uated as a quick note. (Steve Brand) - Related Data Previous Rx's Medication Instructions Recorded Permethrin 5% Cream [Elimite] 1 applic TOPICAL ONCE #60 gm 10/23/22 Allergies Allergy/AdvReac Type Severity Reaction Status Date / Time quetiapine [From Seroquel] Allergy Unknown Verified 03/14/23 15:09 wool Allergy Rash/Hives Verified 03/14/23 15:09 methylphenidate HCl AdvReac Nausea & Verified 03/14/23 15:09 [From Ritalin] Vomiting olanzapine [From Zyprexa] AdvReac Nausea & Verified 03/14/23 15:09 Vomiting Review of Systems ROS Other: All systems not noted in ROS Statement are negative. <Yaya Sousa - Last Filed: 03/14/23 14:58> ROS Other: All systems not noted in ROS Statement are negative. <Steve Brand - Last Filed: 03/14/23 23:09> ROS Statement: Those systems with pertinent positive or pertinent negative responses have been documented in the HPI. Review of Systems: CONST: Denies fever EYES: Denies blurry vision ENT: Denies nasal congestion C/V: Denies Chest pain RESP: Denies shortness of breath GI: Denies abdominal pain : Denies dysuria SKIN: Denies rash. MSK: Denies joint pain. NEURO: Denies headache (Steve Brand) Past Medical History Past Medical History: Hypertension, Osteoarthritis (OA), Pneumonia, Seizure Disorder, Sleep Apnea/CPAP/BIPAP Additional Past Medical History / Comment(s): Other HX: Last seizure 03/12/15, DJD, arthritis in right pelvic bone and R knee, TRACI (unable to tolerate CPAP), insomnia. History of Any Multi-Drug Resistant Organisms: None Reported Past Surgical History: Appendectomy Additional Past Surgical History / Comment(s): 09/2014 Lap appy Past Anesthesia/Blood Transfusion Reactions: No Reported Reaction Past Psychological History: Anxiety, Bipolar, Depression, Panic Disorder, Schizoaffective Disorder, Schizophrenia Smoking Status: Current every day smoker Past Alcohol Use History: Rare Past Drug Use History: Marijuana - Past Family History Father Family Medical History: Hypertension, Myocardial Infarction ([place]) Additional Family Medical History / Comment(s): Pt reports his father of an [place] at the age of 48. Mother History Unknown: Yes Family Medical History: Cancer Additional Family Medical History / Comment(s): Recently diagnosed with breast cancer. <Yaya Sousa - Last Filed: 03/14/23 14:58> General Exam General appearance: alert, in no apparent distress <Yaya Sousa - Last Filed: 03/14/23 14:58> - General Exam Comments Initial Comments: Visual Physical Exam Vital signs reviewed General: Well-appearing, nontoxic, no acute distress. Head: Normocephalic, atraumatic Eyes: PERRLA, EOMI ENT: Airway patent Chest: Nonlabored breathing Skin: No visual rash, normal skin tone Neuro: Alert and oriented 3 Musculoskeletal: No gross abnormalities (Yaya Sousa) Course Vital Signs 03/14/23 03/14/23 03/14/23 15:04 18:24 20:02 Temperature 97.3 F L 97.6 F Pulse Rate 92 72 63 Respiratory 18 18 18 Rate Blood Pressure 106/65 107/67 133/86 O2 Sat by Pulse 94 L 95 97 Oximetry Medical Decision Making <Yaya Sousa - Last Filed: 03/14/23 14:58> - Lab Data Result diagrams: 03/14/23 14:59 03/14/23 14:59 - EKG Data -: EKG Interpreted by Me <Steve Brand - Last Filed: 03/14/23 23:09> - Medical Decision Making I completed the quick note portion of this chart signed Yaya Sousa PA-C (Yaya Sousa) Was pt. sent in by a medical professional or institution (, PA, HEAT ENGINEERING TEACHER, urgent care, hospital, or long term...) When possible be specific @ -No Did you speak to anyone other than the patient for history (EMS, parent, family, police, friend...)? What history was obtained from this source @ -No Did you review nursing and triage notes (agree or disagree)? Why? @ -I reviewed and agree with nursing and triage notes Were old charts reviewed (outside hosp., previous admission, EMS record, old EKG, old radiological studies, urgent care reports/EKG's, long term records)? Report findings @ -No old charts were reviewed Differential Diagnosis (chest pain, altered mental status, abdominal pain women, abdominal pain men, vaginal bleeding, weakness, fever, dyspnea, syncope, h eadache, dizziness, GI bleed, back pain, seizure, CVA, palpatations, mental health, musculoskeletal)? @ -Differential Chest Pain: Stable Angina, Unstable Angina, STEMI, NSTEMI Aortic Dissection, Pneumothorax, Musculoskeletal, Esophageal Spasm GERD, Cholecystitis, Pancreatitis, Zoster, this is not meant to be an all-inclusive list. EKG interpreted by me (3pts min.). @ -As above X-rays interpreted by me (1pt min.). @ -Chest x-ray reveals no obvious acute cardio pulmonary process. CT interpreted by me (1pt min.). @ -None done U/S interpreted by me (1pt. min.). @ -None done What testing was considered but not performed or refused? (CT, X-rays, U/S, labs)? Why? @ -None What meds were considered but not given or refused? Why? @ -None Did you discuss the management of the patient with other professionals (pro fessionals i.e. , PA, HEAT ENGINEERING TEACHER, lab, RT, psych nurse, social worker psychiatric, train control electronic technician, teacher, disabilities services officer, case management rn)? Give summary @ -No Was smoking cessation discussed for >3mins.? @ -No Was critical care preformed (if so, how long)? @ -No Were there social determinants of health that impacted care today? How? (Homelessness, low income, unemployed, alcoholism, drug addiction, transporta tion, low edu. Level, literacy, decrease access to med. care, [facility], rehab)? @ -No Was there de-escalation of care discussed even if they declined (Discuss DNR or withdrawal of care, Hospice)? DNR status @ -No What co-morbidities impacted this encounter? (DM, HTN, Smoking, COPD, CAD, Cancer, CVA, ARF, Chemo, Hep., AIDS, mental health diagnosis, sleep apnea, morbid obesity)? @ -None Was patient admitted / discharged? Hospital course, mention meds given and route, prescriptions, significant lab abnormalities, going to OR and other pertinent info. @ -Based on the patient's presentation physical exam, presents with intermittent chest discomfort. Seems to be mostly skeletal based on the story but is currently asymptomatic. Does have some pain when pressing on the left pectoral muscle currently. Initially seen as a quick no. Labs remarkable for leukocytosis of 17 the patient's kind of chronically elevated. Troponin undetectable. We will add on vital signs, d-dimer, troponin. He was in agreement this plan. EKG unremarkable. Chest x-ray unremarkable. Vital signs as except limits. He'll be given a dose of Toradol at this time. Repeat labs all within acceptable limits. I discussed the workup with the patient. He remains asymptomatic. He will be discharged home at this time. He remains asymptomatic. I instructed the patient to follow up with their PCP in the next 1-3 days. I explained that the patient should return to the emergency department if they experience any worsening symptoms. Strict return precautions were discussed with the patient. The patient expressed understanding of these instructions. I answered all questions that the patient had. The patient was discharged home in good condition with their prescriptions and follow up information. Undiagnosed new problem with uncertain prognosis? @ -No Drug Therapy requiring intensive monitoring for toxicity (Heparin, Nitro, Insulin, Cardizem)? @ -No Were any procedures done? @ -No Diagnosis/symptom? @ -Chest pain Acute, or Chronic, or Acute on Chronic? @ -Acute Uncomplicated (without systemic symptoms) or Complicated (systemic symptoms)? @ -Uncomplicated Side effects of treatment? @ -No Exacerbation, Progression, or Severe Exacerbation? @ -No Poses a threat to life or bodily function? How? (Chest pain, [place], [place], pneumonia, PE, COPD, DKA, ARF, appy, cholecystitis, CVA, Diverticulitis, Homicidal, Suicidal, threat to staff... and all critical care pts) @ -No (Steve Brand) - Lab Data Lab Results 03/14/23 03/14/23 03/14/23 Range/Units 14:59 14:59 14:59 WBC 17.0 H (3.8-10.6) k/uL RBC 5.32 (4.30-5.90) m/uL Hgb 16.3 (13.0-17.5) gm/dL Hct 48.2 (39.0-53.0) % MCV 90.7 (80.0-100.0) fL MCH 30.6 (25.0-35.0) pg MCHC 33.8 (31.0-37.0) g/dL RDW 13.1 (11.5-15.5) % Plt Count 318 (150-450) k/uL MPV 7.5 Neutrophils % 73 % Lymphocytes % 18 % Monocytes % 4 % Eosinophils % 3 % Basophils % 1 % Neutrophils # 12.3 H (1.3-7.7) k/uL Lymphocytes # 3.1 (1.0-4.8) k/uL Monocytes # 0.7 (0-1.0) k/uL Eosinophils # 0.5 (0-0.7) k/uL Basophils # 0.1 (0-0.2) k/uL PT 10.6 (10.0-12.5) sec INR 1.0 (<1.2) APTT 28.7 (22.0-30.0) sec D-Dimer (<0.60) mg/L FEU Sodium 139 (137-145) mmol/L Potassium 4.5 (3.5-5.1) mmol/L Chloride 106 (98-107) mmol/L Carbon Dioxide 20 L (22-30) mmol/L Anion Gap 13 mmol/L BUN 14 (9-20) mg/dL Creatinine 0.62 L (0.66-1.25) mg/dL Est GFR (CKD-EPI)AfAm >90 (>60 ml/min/1.73 sqM) Est GFR (CKD-EPI)NonAf >90 (>60 ml/min/1.73 sqM) Glucose 92 (74-99) mg/dL Calcium 9.7 (8.4-10.2) mg/dL Magnesium 1.7 (1.6-2.3) mg/dL Total Bilirubin 0.7 (0.2-1.3) mg/dL AST 24 (17-59) U/L ALT 19 (4-49) U/L Alkaline Phosphatase 103 (38-126) U/L Troponin I (0.000-0.034) ng/mL Total Protein 7.4 (6.3-8.2) g/dL Albumin 4.2 (3.5-5.0) g/dL Influenza Type A (PCR) (Not Detectd) Influenza Type B (PCR) (Not Detectd) RSV (PCR) (Not Detectd) SARS-CoV-2 (PCR) (Not Detectd) 03/14/23 03/14/23 03/14/23 Range/Units 14:59 14:59 17:16 WBC (3.8-10.6) k/uL RBC (4.30-5.90) m/uL Hgb (13.0-17.5) gm/dL Hct (39.0-53.0) % MCV (80.0-100.0) fL MCH (25.0-35.0) pg MCHC (31.0-37.0) g/dL RDW (11.5-15.5) % Plt Count (150-450) k/uL MPV Neutrophils % % Lymphocytes % % Monocytes % % Eosinophils % % Basophils % % Neutrophils # (1.3-7.7) k/uL Lymphocytes # (1.0-4.8) k/uL Monocytes # (0-1.0) k/uL Eosinophils # (0-0.7) k/uL Basophils # (0-0.2) k/uL PT (10.0-12.5) sec INR (<1.2) APTT (22.0-30.0) sec D-Dimer 0.35 (<0.60) mg/L FEU Sodium (137-145) mmol/L Potassium (3.5-5.1) mmol/L Chloride (98-107) mmol/L Carbon Dioxide (22-30) mmol/L Anion Gap mmol/L BUN (9-20) mg/dL Creatinine (0.66-1.25) mg/dL Est GFR (CKD-EPI)AfAm (>60 ml/min/1.73 sqM) Est GFR (CKD-EPI)NonAf (>60 ml/min/1.73 sqM) Glucose (74-99) mg/dL Calcium (8.4-10.2) mg/dL Magnesium (1.6-2.3) mg/dL Total Bilirubin (0.2-1.3) mg/dL AST (17-59) U/L ALT (4-49) U/L Alkaline Phosphatase (38-126) U/L Troponin I <0.012 (0.000-0.034) ng/mL Total Protein (6.3-8.2) g/dL Albumin (3.5-5.0) g/dL Influenza Type A (PCR) Not Detected (Not Detectd) Influenza Type B (PCR) Not Detected (Not Detectd) RSV (PCR) Not Detected (Not Detectd) SARS-CoV-2 (PCR) Not Detected (Not Detectd) 03/14/23 Range/Units 17:16 WBC (3.8-10.6) k/uL RBC (4.30-5.90) m/uL Hgb (13.0-17.5) gm/dL Hct (39.0-53.0) % MCV (80.0-100.0) fL MCH (25.0-35.0) pg MCHC (31.0-37.0) g/dL RDW (11.5-15.5) % Plt Count (150-450) k/uL MPV Neutrophils % % Lymphocytes % % Monocytes % % Eosinophils % % Basophils % % Neutrophils # (1.3-7.7) k/uL Lymphocytes # (1.0-4.8) k/uL Monocytes # (0-1.0) k/uL Eosinophils # (0-0.7) k/uL Basophils # (0-0.2) k/uL PT (10.0-12.5) sec INR (<1.2) APTT (22.0-30.0) sec D-Dimer (<0.60) mg/L FEU Sodium (137-145) mmol/L Potassium (3.5-5.1) mmol/L Chloride (98-107) mmol/L Carbon Dioxide (22-30) mmol/L Anion Gap mmol/L BUN (9-20) mg/dL Creatinine (0.66-1.25) mg/dL Est GFR (CKD-EPI)AfAm (>60 ml/min/1.73 sqM) Est GFR (CKD-EPI)NonAf (>60 ml/min/1.73 sqM) Glucose (74-99) mg/dL Calcium (8.4-10.2) mg/dL Magnesium (1.6-2.3) mg/dL Total Bilirubin (0.2-1.3) mg/dL AST (17-59) U/L ALT (4-49) U/L Alkaline Phosphatase (38-126) U/L Troponin I <0.012 (0.000-0.034) ng/mL Total Protein (6.3-8.2) g/dL Albumin (3.5-5.0) g/dL Influenza Type A (PCR) (Not Detectd) Influenza Type B (PCR) (Not Detectd) RSV (PCR) (Not Detectd) SARS-CoV-2 (PCR) (Not Detectd) - EKG Data EKG Comments: 12-lead Electrocardiogram Interpretation Note EKG was reviewed and interpreted by myself. 12-lead ECG performed at 1513 is interpreted by me as revealing normal sinus rhythm at a rate of 75 beats per minute. [place] is normal. [place] interval is 158 ms, QRS duration is 85 ms, QTc is 378 ms.. There were no ST or T wave abnormalities to suggest myocardial ischemia or injury. R wave progression across the precordium was delayed. By my interpretation this EKG is non-diagnostic for acute ischemia. 12-lead Electrocardiogram Interpretation Note EKG was reviewed and interpreted by myself. 12-lead ECG performed at 1708 is interpreted by me as revealing normal sinus rhythm at a rate of 60 beats per minute. [place] is normal. [place] interval is 162 ms, QRS duration is 87 ms, QTc is 375 ms.. There were no ST or T wave abnormalities to suggest myocardial ischemia or injury. R wave progression across the precordium was delayed. By my interpretation this EKG is non-diagnostic for acute ischemia. (Steve Brand) Disposition <Yaya Sousa - Last Filed: 03/14/23 14:58> Is patient prescribed a controlled substance at d/c from ED?: No Time of Disposition: 19:35 <Steve Brand - Last Filed: 03/14/23 23:09> Clinical Impression: Chest pain Disposition: HOME SELF-CARE Condition: Good Instructions (If sedation given, give patient instructions): Chest Pain (ED) Referrals: Michael Ruffin MD [Primary Care Provider] - 1-2 days
[2023-03-14 15:23] VITALS: RESP 18
[2023-03-14 15:31] LABS: Basophils # (A) 0.1 k/uL (0-0.2); Basophils % (A) 1 %; Eosinophils # (A) 0.5 k/uL (0-0.7); Eosinophils % (A) 3 %; HCT 48.2 % (39.0-53.0); HGB 16.3 gm/dL (13.0-17.5); Lymphocytes # (A) 3.1 k/uL (1.0-4.8); Lymphocytes % (A) 18 %; MCH 30.6 pg (25.0-35.0); MCHC 33.8 g/dL (31.0-37.0); MCV 90.7 fL (80.0-100.0); Mean Platelet Volume 7.5; Monocytes # (A) 0.7 k/uL (0-1.0); Monocytes % (A) 4 %; Neutrophils # (A) 12.3 k/uL (1.3-7.7); Neutrophils % (A) 73 %; Platelet Count 318 k/uL (150-450); RBC 5.32 m/uL (4.30-5.90); RDW 13.1 % (11.5-15.5)
[2023-03-14 16:00] LABS: Partial Thromboplastin Time 28.7 sec (22.0-30.0); Prothrombin Time 10.6 sec (10.0-12.5)
--- NOTE | 2023-03-14 16:04 | XR ---
EXAMINATION TYPE: XR chest 2V DATE OF EXAM: 03/14/2023 3:57 PM CLINICAL INDICATION:Male, 37 years old with history of Chest Pain; [facility] COMPARISON: Chest radiographs from 02/16/2022 TECHNIQUE: XR chest 2V Frontal and lateral views of the chest. FINDINGS: Lungs/Pleura: There is no evidence of pleural effusion, focal consolidation, or pneumothorax. Pulmonary vascularity: Unremarkable. Heart/mediastinum: Cardiomediastinal silhouette is unremarkable. Musculoskeletal: No acute osseous pathology. Other findings: None IMPRESSION: No acute cardiopulmonary disease/process.
[2023-03-14 16:06] LABS: ALT 19 U/L (4-49); AST 24 U/L (17-59); African American GFR (CKD) >90 (>60 ml/min/1.73 sqM); Albumin 4.2 g/dL (3.5-5.0); Alkaline Phosphatase 103 U/L (38-126); Anion Gap 13 mmol/L; Blood Urea Nitrogen 14 mg/dL (9-20); Calcium 9.7 mg/dL (8.4-10.2); Carbon Dioxide 20 mmol/L (22-30); Chloride 106 mmol/L (98-107); Glucose 92 mg/dL (74-99); Magnesium 1.7 mg/dL (1.6-2.3); Non-African American GFR(CKD) >90 (>60 ml/min/1.73 sqM); Potassium 4.5 mmol/L (3.5-5.1); Sodium 139 mmol/L (137-145); Total Bilirubin 0.7 mg/dL (0.2-1.3); Total Protein 7.4 g/dL (6.3-8.2)
[2023-03-14] MEDS ORDERED: KETOROLAC 15 MG/ML 1 ML VIAL IVP STA (16:46)
[2023-03-14 18:38] VITALS: TEMP 97.6
[2023-03-14 20:21] VITALS: BP 133/86; PULSE 63
== END 2023-03-14 20:04 | disposition home or self-care (01) ==
LOC: EC 14:56
DX: R07.89 Other chest pain (principal); I10 Essential (primary) hypertension; F17.200 Nicotine dependence, unspecified, uncomplicated; Z86.59 Personal history of other mental and behavioral disorders; Z88.8 Allergy status to other drugs, medicaments and biological substances; Z20.822 Contact with and (suspected) exposure to COVID-19
CPT/HCPCS: 36415; 93005; 85379; 80053; 83735; 84484; 85025; 85610; 85730; 87636; 71046; 99285; 96374; J1885

== ENCOUNTER 2023-07-15 09:48 | Emergency (ER) | payer MEDICARE ==
--- NOTE | 2023-07-15 10:56 | ED ---
ENT HPI - General Chief complaint: ENT Stated complaint: Bilat ear pain Time Seen by Provider: 07/15/23 10:54 Source: patient, RN notes reviewed Mode of arrival: ambulatory Limitations: no limitations - History of Present Illness Initial comments: 38-year-old male presented to the ER with chief complaint of bilateral ear pain. Patient states he recently stayed at a hotel and was swimming and is concerned he has an ear infection. He states that is difficult to hear out of both ears. He does report right is worse than the left. Denies any fevers, chills, cough, congestion, chest pain, shortness of breath, abdominal pain, urinary complaints or peripheral edema. - Related Data Previous Rx's Medication Instructions Recorded Permethrin 5% Cream [Elimite] 1 applic TOPICAL ONCE #60 gm 10/23/22 Allergies Allergy/AdvReac Type Severity Reaction Status Date / Time quetiapine [From Seroquel] Allergy Unknown Verified 07/15/23 09:51 wool Allergy Rash/Hives Verified 07/15/23 09:51 methylphenidate HCl AdvReac Nausea & Verified 07/15/23 09:51 [From Ritalin] Vomiting olanzapine [From Zyprexa] AdvReac Nausea & Verified 07/15/23 09:51 Vomiting Review of Systems ROS Statement: Those systems with pertinent positive or pertinent negative responses have been documented in the HPI. ROS Other: All systems not noted in ROS Statement are negative. Past Medical History Past Medical History: Hypertension, Osteoarthritis (OA), Pneumonia, Seizure Disorder, Sleep Apnea/CPAP/BIPAP Additional Past Medical History / Comment(s): Other HX: Last seizure 03/12/15, DJD, arthritis in right pelvic bone and R knee, TRACI (unable to tolerate CPAP), insomnia. History of Any Multi-Drug Resistant Organisms: None Reported Past Surgical History: Appendectomy Additional Past Surgical History / Comment(s): 09/2014 Lap appy Past Anesthesia/Blood Transfusion Reactions: No Reported Reaction Past Psychological History: Anxiety, Bipolar, Depression, Panic Disorder, Schizoaffective Disorder, Schizophrenia Smoking Status: Current every day smoker Past Alcohol Use History: Rare Past Drug Use History: Marijuana - Past Family History Father Family Medical History: Hypertension, Myocardial Infarction ([place]) Additional Family Medical History / Comment(s): Pt reports his father of an [place] at the age of 48. Mother History Unknown: Yes Family Medical History: Cancer Additional Family Medical History / Comment(s): Recently diagnosed with breast cancer. General Exam Limitations: no limitations General appearance: alert, in no apparent distress Eye exam: Present: normal appearance, PERRL, EOMI. Absent: scleral icterus, conjunctival injection, periorbital swelling ENT exam: Present: normal oropharynx, other (Bilateral cerumen impactions. Panic membranes unable to be visualized. No mastoid tenderness) Respiratory exam: Present: normal lung sounds bilaterally. Absent: respiratory distress, wheezes, rales, rhonchi, stridor Cardiovascular Exam: Present: regular rate, normal rhythm, normal heart sounds. Absent: systolic murmur, diastolic murmur, rubs, gallop, clicks Neurological exam: Present: alert, oriented X3, CN II-XII intact Skin exam: Present: warm, dry, intact, normal color. Absent: rash Course Vital Signs 07/15/23 07/15/23 09:49 11:14 Temperature 98.7 F 98.4 F Pulse Rate 92 78 Respiratory 20 18 Rate Blood Pressure 144/85 126/78 O2 Sat by Pulse 97 99 Oximetry Procedures - Ear Wax Removal Both Ears Cerumenolytic Used: other Ear Canal Irrigated by: other (FILAMENT TESTER) Ear Canal Irrigated With: warm saline with H2O2 using syringe/angiocath Ear Canal(s) Curetted: plastic scoops Results: Re-examined: some cerumen remains Ear Canal: atraumatic Patient Tolerated Procedure: well, no complications Complications: no problems Medical Decision Making - Medical Decision Making Was pt. sent in by a medical professional or institution (FLOYD Lee, [employer] PROFESSIONAL, urgent care, hospital, or [facility]...) When possible be specific @ -No Did you speak to anyone other than the patient for history (EMS, parent, family, police, friend...)? What history was obtained from this source @ -No Did you review nursing and triage notes (agree or disagree)? Why? @ -I reviewed and agree with nursing and triage notes Were old charts reviewed (outside hosp., previous admission, EMS record, old EKG, old radiological studies, urgent care reports/EKG's, [facility] records)? Report findings @ -No old charts were reviewed Differential Diagnosis (chest pain, altered mental status, abdominal pain women, abdominal pain men, vaginal bleeding, weakness, fever, dyspnea, syncope, headach e, dizziness, GI bleed, back pain, seizure, CVA, palpatations, mental health, musculoskeletal)? @ -Cristobal media, otitis externa, foreign body, cerumen impaction this list is not meant to be all-inclusive EKG interpreted by me (3pts min.). @ -None X-rays interpreted by me (1pt min.). @ -None done CT interpreted by me (1pt min.). @ -None done U/S interpreted by me (1pt. min.). @ -None done What testing was considered but not performed or refused? (CT, X-rays, U/S, labs)? Why? @ -None What meds were considered but not given or refused? Why? @ -None Did you discuss the management of the patient with other professionals (professionals i.e. , PA, [employer] PROFESSIONAL, lab, RT, psych nurse, geriatric social work professor, time study observer, teacher, policy officer, top case assembler)? Give summary @ -No Was smoking cessation discussed for >3mins.? @ -No Was critical care preformed (if so, how long)? @ -No Were there social determinants of health that impacted care today? How? (Homelessness, low income, unemployed, alcoholism, drug addiction, transportation, low edu. Level, literacy, decrease access to med. care, fpc, rehab)? @ -No Was there de-escalation of care discussed even if they declined (Discuss DNR or withdrawal of care, Hospice)? DNR status @ -No What co-morbidities impacted this encounter? (DM, HTN, Smoking, COPD, CAD, Cancer, CVA, ARF, Chemo, Hep., AIDS, mental health diagnosis, sleep apnea, morbid obesity)? @ -None Was patient admitted / discharged? Hospital course, mention meds given and route, prescriptions, significant lab abnormalities, going to OR and other pertinent info. @ -Discharge. 38-year-old male presented to the ER with chief complaint of bilateral ear pain. History and physical exam completed. Vitals stable. Patient in no signs of distress and nontoxic-appearing. No mastoid tenderness on exam. Bilateral cerumen impactions. Cerumen attempted to be removed with warm saline, hydrogen peroxide and ear currette. Patient tolerated procedure well. Advise close follow-up with ENT, referral given. Return parameters discussed. Patient discharged stable condition with follow-up to PCP/ ENT. Patient verbally expressed understanding and agreement with care plan. Case discussed with ED attending, Dr. Brand. Undiagnosed new problem with uncertain prognosis? @ -No Drug Therapy requiring intensive monitoring for toxicity (Heparin, Nitro, Insulin, Cardizem)? @ -No Were any procedures done? @ -Yes Diagnosis/symptom? @ -Bilateral cerumen impaction Acute, or Chronic, or Acute on Chronic? @ -Acute Uncomplicated (without systemic symptoms) or Complicated (systemic symptoms)? @ -Uncomplicated Side effects of treatment? @ -No Exacerbation, Progression, or Severe Exacerbation? @ -No Poses a threat to life or bodily function? How? (Chest pain, [place], [place], pneumonia, PE, COPD, DKA, ARF, appy, cholecystitis, CVA, Diverticulitis, Homicidal, Suicidal, threat to staff... and all critical care pts) @ -No Disposition Clinical Impression: Bilateral impacted cerumen Disposition: HOME SELF-CARE Condition: Stable Additional Instructions: Please refrain from using Q-tips to clean ears. I recommend water and peroxide. Follow-up with ENT. Return to the ER for any new or worsening concerns. Is patient prescribed a controlled substance at d/c from ED?: No Referrals: Michael Ruffin MD [Primary Care Provider] - 1-2 days Keon Ornelas MD [STAFF PHYSICIAN] - 1-2 days Time of Disposition: 10:55
[2023-07-15 11:20] VITALS: BP 126/78; PULSE 78; RESP 18; TEMP 98.4
== END 2023-07-15 11:18 | disposition home or self-care (01) ==
LOC: EC 09:48
DX: H61.23 Impacted cerumen, bilateral (principal); F12.90 Cannabis use, unspecified, uncomplicated; F17.200 Nicotine dependence, unspecified, uncomplicated; Z88.8 Allergy status to other drugs, medicaments and biological substances
CPT/HCPCS: 69210; 99282

== ENCOUNTER 2023-10-15 17:02 | Emergency (ER) | payer MEDICARE ==
[2023-10-15] MEDS ORDERED: HYDROmorphone 0.5 MG/0.5 ML SYRINGE ONE (18:06)
[2023-10-15] MEDS ORDERED: KETOROLAC 15 MG/ML 1 ML VIAL ONE (18:06)
== END 2023-10-15 18:27 | disposition home or self-care (01) ==
LOC: EC 17:02
CPT/HCPCS: 96372; 99283

== ENCOUNTER 2024-03-11 11:46 | Emergency (ER) | payer MEDICARE ==
[2024-03-11 12:16] VITALS: PULSE 82; RESP 18
--- NOTE | 2024-03-11 12:18 | ED ---
Nausea/Vomiting/Diarrhea HPI - General Stated complaint: Flu like symptoms Time Seen by Provider: 03/11/24 12:02 Source: patient Mode of arrival: ambulatory Limitations: no limitations - History of Present Illness Initial comments: This is a 38-year-old male presenting with N/V/D since last night. Patient also endorses fever, chills, fatigue, body aches and decreased appetite as well as sore throat. Endorses fianc recently being sick. Denies [id number] medication use. Denies chest pain, dyspnea, abdominal pain, hematemesis, hematochezia, melena. MD complaint: nausea, vomiting, diarrhea - Related Data Previous Rx's Medication Instructions Recorded Permethrin 5% Cream [Elimite] 1 applic TOPICAL ONCE #60 gm 10/23/22 Amoxicillin 500 mg PO BID #20 capsule 03/11/24 Allergies Allergy/AdvReac Type Severity Reaction Status Date / Time quetiapine [From Seroquel] Allergy Unknown Verified 03/11/24 12:17 wool Allergy Rash/Hives Verified 03/11/24 12:17 methylphenidate HCl AdvReac Nausea & Verified 03/11/24 12:17 [From Ritalin] Vomiting olanzapine [From Zyprexa] AdvReac Nausea & Verified 03/11/24 12:17 Vomiting Review of Systems ROS Statement: Those systems with pertinent positive or pertinent negative responses have been documented in the HPI. ROS Other: All systems not noted in ROS Statement are negative. Past Medical History Past Medical History: Hypertension, Osteoarthritis (OA), Pneumonia, Seizure Disorder, Sleep Apnea/CPAP/BIPAP Additional Past Medical History / Comment(s): Other HX: Last seizure 03/12/15, DJD, arthritis in right pelvic bone and R knee, TRACI (unable to tolerate CPAP), insomnia. History of Any Multi-Drug Resistant Organisms: None Reported Past Surgical History: Appendectomy Additional Past Surgical History / Comment(s): 09/2014 Lap appy Past Anesthesia/Blood Transfusion Reactions: No Reported Reaction Past Psychological History: Anxiety, Bipolar, Depression, Panic Disorder, Schizoaffective Disorder, Schizophrenia Smoking Status: Current every day smoker Past Alcohol Use History: Rare Past Drug Use History: Marijuana - Past Family History Father Family Medical History: Hypertension, Myocardial Infarction (CA) Additional Family Medical History / Comment(s): Pt reports his father of an CA at the age of 48. Mother History Unknown: Yes Family Medical History: Cancer Additional Family Medical History / Comment(s): Recently diagnosed with breast cancer. General Exam General appearance: alert, in no apparent distress Head exam: Present: atraumatic, normocephalic, normal inspection Eye exam: Present: normal appearance, PERRL, EOMI. Absent: scleral icterus, conjunctival injection, periorbital swelling ENT exam: Present: normal exam, mucous membranes moist, other (Bilateral cerumen impaction. Tonsils 2+ with erythema and without obvious white exudate) Neck exam: Present: normal inspection. Absent: tenderness, meningismus, lymphadenopathy Respiratory exam: Present: normal lung sounds bilaterally. Absent: respiratory distress, wheezes, rales, rhonchi, stridor Cardiovascular Exam: Present: regular rate, normal rhythm, normal heart sounds. Absent: systolic murmur, diastolic murmur, rubs, gallop, clicks GI/Abdominal exam: Present: soft, distended, tenderness (Mild epigastric tenderness without guarding), normal bowel sounds. Absent: guarding, rebound, rigid Extremities exam: Present: normal inspection, full ROM, normal capillary refill. Absent: tenderness, pedal edema, joint swelling, calf tenderness Back exam: Present: normal inspection Neurological exam: Present: alert, oriented X3, CN II-XII intact Psychiatric exam: Present: normal affect, normal mood Skin exam: Present: warm, dry, intact, normal color. Absent: rash Course Vital Signs 03/11/24 12:12 Temperature 98.7 F Pulse Rate 82 Respiratory 18 Rate Blood Pressure 141/87 O2 Sat by Pulse 96 Oximetry Medical Decision Making - Medical Decision Making Was pt. sent in by a medical professional or institution (, PA, SAVINGS TELLER, urgent care, hospital, or prison...) When possible be specific @ -No Did you speak to anyone other than the patient for history (EMS, parent, family, police, friend...)? What history was obtained from this source @ -No Did you review nursing and triage notes (agree or disagree)? Why? @ -I reviewed and agree with nursing and triage notes Were old charts reviewed (outside hosp., previous admission, EMS record, old EKG, old radiological studies, urgent care reports/EKG's, prison records)? Report findings @ -No old charts were reviewed Differential Diagnosis (chest pain, altered mental status, abdominal pain women, abdominal pain men, vaginal bleeding, weakness, fever, dyspnea, syncope, headache, dizziness, GI bleed, back pain, seizure, CVA, palpatations, mental health, musculoskeletal)? @ -Differential Fever: Pneumonia, viral URI, endocarditis, myocarditis, pericarditis, otitis, sinusitis, peritonsillar Abscess, retropharyngeal Abscess, epiglottitis, peritonitis, appendicitis, [place]ruz cystitis, diverticulitis, hepatitis, colitis, UTI, PID, TOA, pyelonephritis, prostatitis, epididymitis, meningitis, enc ephalitis, pulmonary embolism, CVA, thyroid storm, pancreatitis, adrenal crisis, cavernous sinus thrombosis, this is not meant to be an all-inclusive list. EKG interpreted by me (3pts min.). @ -Not done X-rays interpreted by me (1pt min.). @ -None done CT interpreted by me (1pt min.). @ -None done U/S interpreted by me (1pt. min.). @ -None done What testing was considered but not performed or refused? (CT, X-rays, U/S, labs)? Why? @ -None What meds were considered but not given or refused? Why? @ -None Did you discuss the management of the patient with other professionals (professionals i.e. , PA, SAVINGS TELLER, lab, RT, psych nurse, social insurance analyst, supervisor smoke control, teacher, student liaison officer, catalytic case operator)? Give summary @ -No Was smoking cessation discussed for >3mins.? @ -No Was critical care preformed (if so, how long)? @ -No Were there social determinants of health that impacted care today? How? (Homelessness, low income, unemployed, alcoholism, drug addiction, transportation, low edu. Level, literacy, decrease access to med. care, senior care, rehab)? @ -No Was there de-escalation of care discussed even if they declined (Discuss DNR or withdrawal of care, Hospice)? DNR status @ -No What co-morbidities impacted this encounter? (DM, HTN, Smoking, COPD, CAD, Cancer, CVA, ARF, Chemo, Hep., AIDS, mental health diagnosis, sleep apnea, morbid obesity)? @ -None Was patient admitted / discharged? Hospital course, mention meds given and route, prescriptions, significant lab abnormalities, going to OR and other pertinent info. @ -Cepheid test negative. Strep test positive. Patient initially given Zofran. Later given amoxicillin and Decadron and amoxicillin regimen sent to patient's pharmacy. Discharged with Zofran starter pack and work note. Undiagnosed new problem with uncertain prognosis? @ -No Drug Therapy requiring intensive monitoring for toxicity (Heparin, Nitro, Insulin, Cardizem)? @ -No Were any procedures done? @ -No Diagnosis/symptom? @ -Strep tonsillitis Acute, or Chronic, or Acute on Chronic? @ -Acute Uncomplicated (without systemic symptoms) or Complicated (systemic symptoms)? @ -Complicated Side effects of treatment? @ -No Exacerbation, Progression, or Severe Exacerbation? @ -No Poses a threat to life or bodily function? How? (Chest pain, USA, CA, pneumonia, PE, COPD, DKA, ARF, appy, cholecystitis, CVA, Diverticulitis, Homicidal, Suicidal, threat to staff... and all critical care pts) @ -No - Lab Data Lab Results 03/11/24 03/11/24 Range/Units 12:32 12:32 Influenza Type A (PCR) Not Detected (Not Detectd) Influenza Type B (PCR) Not Detected (Not Detectd) RSV (PCR) Not Detected (Not Detectd) SARS-CoV-2 (PCR) Not Detected (Not Detectd) Group A Strep (PCR) DETECTED A (Not Detectd) Disposition Clinical Impression: Strep tonsillitis Disposition: HOME SELF-CARE Condition: Good Instructions (If sedation given, give patient instructions): Strep Throat (ED) Prescriptions: Amoxicillin 500 mg PO BID #20 capsule Is patient prescribed a controlled substance at d/c from ED?: No Referrals: Michael Ruffin MD [Primary Care Provider] - 1-2 days Time of Disposition: 13:35
[2024-03-11] MEDS: ONDANSETRON 4 MG/2 ML VIAL IM STA (12:40)
[2024-03-11] MEDS: AMOXICILLIN 500 MG CAP PO STA (13:48)
[2024-03-11] MEDS: ONDANSETRON 4 MG ODT STARTER PACK 2 TAB BTL PO STA (13:48)
[2024-03-11] MEDS: DEXAMETHASONE SOD PHOSPHATE 4 MG/ML 1 ML VIAL IM STA (13:56)
[2024-03-11 14:04] VITALS: BP 165/84; TEMP 98.6
== END 2024-03-11 14:03 | disposition home or self-care (01) ==
LOC: EC 11:46
DX: J03.00 Acute streptococcal tonsillitis, unspecified (principal); F17.200 Nicotine dependence, unspecified, uncomplicated; Z88.8 Allergy status to other drugs, medicaments and biological substances
CPT/HCPCS: 87651; 87636; 99283; 96372; J1100; J2405; S0119